=== PATIENT | female | born 1935 | race Caucasian/White ===

== ENCOUNTER → 2016-12-21 | Day surgery (SDC) | payer OTHER, MEDICARE ==
[~2016-12-21] VITALS: Ht 165.1 cm; Wt 81.6 kg
[~2016-12-21] MED LIST: ALLOPURINOL100 MG PO; ASPIR 8181 MG PO; CALCIUM 600600 M1 PO; CRESTOR20 MG PO; DIOVAN 160 MG160 MG PO; ERYTHROMYCIN500 M1 PO; JANUMET 1000 MG1 TAB PO; LEVOTHYROXIN0.075 MG PO; LOPRESSOR 25MG25 MG PO; MULTIVITAMIN1 TAB PO; NORVASC10 M1 PO; PLAVIX75 M1 PO; PREDNISONE5 MG PO
--- NOTE | 2016-12-21 12:13 | Operative Report ---
Operative/Inv Procedure Report Surgery Date: 12/21/16 Name of Procedure: Hysteroscopy, dilation and curettage Pre-Operative Diagnosis: Thickened endometrium, postmenopausal bleeding Post-Operative Diagnosis: Endometrial mass noted involving Posterior wall of uterus Estimated Blood Loss: scant Surgeon/Jtac: JAMES RODRIGUEZ DO Anesthesia: TIVA, 5ml of 1% lidocaine plain. IV Fluids: 250 mL Urine Output: 125 mL preoperative Drains: None Specimens: Endocervical curettage, endometrial curettage Complications: None Condition: Good Operative Indication: This patient is an 81-year-old postmenopausal female who presented to al in July for postmenopausal bleeding. She is with a thick endometrium by pelvic ultrasound. She was advised to undergo hysteroscopy, dilation and curettage however the patient refused at that time. She followed up with urology what she felt was hematuria. She returned to al in November persistent cramping and intermittent bleeding and was at that time strongly advised to undergo endometrial sampling. She was counseled the risks, benefits, alternatives to procedure including the risk of bleeding, infection, uterine perforation, nondiagnostic specimen or diagnosis of cancer. She stated verbal understanding of all the above and desires to proceed. Operative/Procedure Note Note: The patient was taken to the operating room where anesthesia was obtained without difficulty. She was placed in the dorsal lithotomy position and examined under anesthesia. Unremarkable she had a small uterus and no adnexal masses. She was then prepared and draped in usual sterile fashion. She had a narrow vaginal introitus. An open sided speculum was placed inside the patient' s vagina and the cervix was visualized. Paracervical block was performed with 5 mL 1% lidocaine plain. Anterior lip the cervix was then grasped with a single- tooth tenaculum and the cervix was then progressively dilated to 21 [place] with Wilfrid dilators. Uterine sound length of 7 cm was determined. Diagnostic hysteroscopy was then performed using normal saline as distention media. Should normal-appearing bilateral tubal ostia. Anterior wall of the uterus was atrophic except for one small area demonstrated early polyp formation. She had a mass of the posterior wall. No significant vascularity was noted. Hysteroscope was removed and endocervical curettage was obtained. Endometrial curettage was performed. Minimal tissue was obtained. Polyp forceps were then used to remove the tissue from the posterior wall. Necrotic tissue was easily removed. No significant bleeding was noted multiple passes were made with a curet as well as with the endometrial [place]. Moderate tissue was obtained. All tissue was sent for pathology. All insurance removed from the patient's uterus, cervix, vagina. Hemostasis of tenaculum sites was noted. All sponge, lap counts and needle counts were correct 2 the patient was taken to the recovery area in stable condition. Her granddaughter. Findings: Examination under anesthesia: Small uterus, no adnexal mass Intraoperative findings: Uterine sound length 7 cm. Early polyp formation anterior wall of uterus otherwise atrophic anterior wall. Normal-appearing bilateral tubal ostia. Mass Of posterior wall. Discharge Disposition: PACU
== END ==
LOC: STS 02:02
DX: C54.1 Malignant neoplasm of endometrium (principal); E03.9 Hypothyroidism, unspecified; M10.9 Gout, unspecified; I10 Essential (primary) hypertension; E11.9 Type 2 diabetes mellitus without complications; Z79.84 Long term (current) use of oral hypoglycemic drugs
CPT/HCPCS: J2250

== ENCOUNTER 2018-02-08 17:13 | Inpatient (IN) | payer OTHER, MEDICARE ==
[~2018-02-08] VITALS: Ht 165.1 cm; Wt 89.8 kg
[~2018-02-08 17:13] MED LIST changes: +ALLOPURINOL100 M1 PO; -ALLOPURINOL100 MG PO; -ASPIR 8181 MG PO; +ASPIRIN EC81 M1 PO; +CRESTOR20 M2 PO; -CRESTOR20 MG PO; -DIOVAN 160 MG160 MG PO; +DIOVAN160 MG PO; -JANUMET 1000 MG1 TAB PO; +JANUMET 50-1,01 EACH PO; -LEVOTHYROXIN0.075 MG PO; +LEVOTHYROXINE75 MCG PO; -LOPRESSOR 25MG25 MG PO; +METOPROLOL TART25 M1 PO
--- NOTE | 2018-02-08 18:14 | ED GENERAL ADULT ---
History of Present Illness General Chief Complaint: Abdominal Pain/Flank Pain Stated Complaint: UPPER ABD PAIN Source: patient Exam Limitations: no limitations Vital Signs & Intake/Output Vital Signs & Intake/Output Vital Signs Date Time Temp Pulse Resp B/P B/P Pulse O2 O2 Flow FiO2 Mean Ox Delivery Rate 02/08 2206 99.1 84 16 144/66 96 Room Air 02/08 2100 97.8 87 16 144/60 94 Room Air 02/08 1721 97.5 72 16 157/79 97 Room Air Allergies Coded Allergies: Penicillins (HIVES 02/08/18) codeine (N/V 02/08/18) Reconcile Medications Allopurinol 100 MG TABLET 1 TAB PO DAILY GOUT (Reported) Amlodipine Besylate (Norvasc) 10 MG TABLET 1 TAB PO DAILY HTN (Reported) Aspirin (Ecotrin*) 81 MG TABLET.DR 1 TAB PO DAILY HEART/BLOOD (Reported) Cholecalciferol (Vitamin D3) (Vitamin D) 2,000 UNIT CAPSULE 1 CAP PO DAILY SUPPLEMENT (Reported) Clopidogrel Bisulfate (Plavix) 75 MG TABLET 1 TAB PO DAILY CAD (Reported) Levothyroxine Sodium 75 MCG TABLET 1 TAB PO DAILY THYROID (Reported) Metoprolol Tartrate 25 MG TABLET 1 TAB PO BID HEART/BP (Reported) Mirabegron (Myrbetriq) 50 MG TAB.ER.24H 1 TAB PO DAILY BLADDER (Reported) Rosuvastatin Calcium (Crestor) 20 MG TABLET 1 TAB PO DAILY CHOLESTEROL ( Reported) Sitagliptin Phos/Metformin HCl (Janumet 50-1,000 MG Tablet) 50 MG-1,000 MG TABLET 1 TAB PO BID DM (Reported) Ubidecarenone (Co Q-10) 200 MG CAPSULE 1 CAP PO DAILY SUPPLEMENT (Reported) Valsartan (Diovan) 160 MG TABLET 1 TAB PO DAILY BP (Reported) Triage Note: PT COMPLAINS OF CRAMPING UPPER ABD PAIN SINCE NOON, VOMITTED 1X AT NOON AND THEN AGAIN ON THE WAY TO THE HOSPITAL. LBM THIS AM AND NORMAL, DENIES BLOOD, DENIES URINARY SYMPTOMS Triage Nurses Notes Reviewed? yes Onset: Abrupt Duration: hour(s): Timing: single episode today HPI: 82 year old female presents to the Emergency Department with abdominal pain which started abruptly at noon today. She has vomitted twice since then. She denies any chest pain or blood in her vomit. Past History Travel History Traveled to [place] past 21 day No Medical History Any Pertinent Medical History? 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 No Review of Systems Review of Systems Constitutional: Reports: see HPI. Denies: fever. EENTM: Reports: no symptoms. Denies: blurred vision, double vision, visual changes. Respiratory: Reports: no symptoms. Denies: hemoptysis, short of breath. Cardiovascular: Reports: no symptoms. Denies: chest pain. GI: Reports: see HPI. Denies: bloody stool. Genitourinary: Reports: no symptoms. Musculoskeletal: Reports: no symptoms. Skin: Reports: no symptoms. Neurological/Psychological: Reports: no symptoms. Hematologic/Endocrine: Reports: no symptoms. Immunologic/Allergic: Reports: no symptoms. All Other Systems: Reviewed and Negative Physical Exam Physical Exam General Appearance: alert, awake, anxious Head: atraumatic, normal appearance Eyes: Bilateral: normal appearance, PERRL, EOMI. Neck: full range of motion Respiratory: no respiratory distress Cardiovascular: regular rate/rhythm Gastrointestinal: soft, tenderness (EPIGASTRIC / RIGHT UPPER QUAD) Back: normal range of motion Extremities: normal range of motion Neurologic/Psych: awake, alert, oriented x 3 Skin: intact, normal color, warm/dry Core Measures ACS in differential dx? No CVA/TIA Diagnosis: No Sepsis Present: No Sepsis Focused Exam Completed? No Progress Differential Diagnoses I considered the following diagnoses in my evaluation of the patient: [ Diverticulitis, appendicitis, cholecystitis, bowel obstruction.] Plan of Care: Orders Procedure Date/time Status Nothing by Mouth 02/09 B Active ED Holding Orders 02/08 2222 Active Admit to inpatient 02/08 2222 Active Vital Signs 02/08 2222 Active Code Status 02/08 2222 Active Patient Data 02/08 220 Active Baez, Insertion/Removal/Asses 02/08 191 Complete URINALYSIS 02/08 1729 Complete TROPONIN LEVEL 02/08 1729 Complete LIPASE 02/08 1729 Complete COMPREHENSIVE METABOLIC PANEL 02/08 1729 Complete CBC WITHOUT DIFFERENTIAL 02/08 172 Complete EKG 02/08 1714 Active Laboratory Tests 02/08/18 1750: Anion Gap 14, Estimated GFR 36 L, BUN/Creatinine Ratio 15.0, Glucose 161 H, Calcium 9.6, Total Bilirubin 0.9, AST 102 H, ALT 41, Alkaline Phosphatase 120, Troponin I < 0.01, Total Protein 7.8, Albumin 4.6, Globulin 3.2, Albumin/ Globulin Ratio 1.4, Lipase 384 H, CBC w Diff NO MAN DIFF REQ, RBC 4.33, MCV 81.4, MCH 27.3, MCHC 33.5, RDW 16.4 H, MPV 8.0, Gran % 85.6 H, Lymphocytes % 9.6 L, Monocytes % 3.1, Eosinophils % 1.3, Basophils % 0.4, Absolute Granulocytes 11.0 H, Absolute Lymphocytes 1.2, Absolute Monocytes 0.4, Absolute Eosinophils 0.2, Absolute Basophils 0.1, Urine Color YEL, Urine Clarity CLEAR, Urine pH 5.5, Ur Specific [place] >= 1.030, Urine Protein 100 H, Urine Ketones NEG, Urine Nitrite POS H, Urine Bilirubin NEG, Urine Urobilinogen 1.0, Ur Leukocyte Esterase MOD H, Ur Microscopic SEDIMENT EXAMINED, Urine RBC 1-3, Urine WBC 25-50 H, Ur Epithelial Cells FEW, Urine Bacteria MANY H, Urine Hemoglobin SMALL H, Urine Glucose NEG, Urine Comment A Microbiology 02/08 1914 URINE ROUT: Urine Culture - CAN Cancelled: Cancelled via OE: Error Initial ED EKG: NSR, nonspecific ST T wave chg, 1st degree AV block Prior EKG: unchanged Departure Departure Disposition: STILL A PATIENT Condition: Stable Clinical Impression Primary Impression: Abdominal pain Secondary Impressions: Cholelithiasis Referrals: Kamar Flowers MD (PCP/Family) Departure Forms: Customer Survey General Discharge Information Admission Note Spoke With: Kamar Flowers MD Documentation of Exam: Documentation of any treatments & extenuating circumstances including Concerns Regarding Discharge (functional status, medication knowledge or non-compliance, living conditions, etc.) that warrant an admission rather than observation: [The patient needs admission for serial troponins, ultrasound in the a.m., general surgery consultation, IV fluids, reevaluation of abdominal pain. Diagnostic considerations include acute coronary syndrome, pancreatitis, cholecystitis] Critical Care Note Critical Care Note Critical Care Time: non-applicable
[2018-02-08 18:22] LABS: ABSOLUTE BASOPHIL COUNT 0.1 /CUMM (0.0-0.2); ABSOLUTE EOSINOPHIL COUNT 0.2 /CUMM (0.0-0.7); ABSOLUTE LYMPH COUNT 1.2 /CUMM (1.2-3.4); ABSOLUTE MONOCYTE COUNT 0.4 /CUMM (0.10-0.60); BASOPHIL % 0.4 % (0.0-2.0); EOSINOPHIL % 1.3 % (0-5); HEMATOCRIT 35.3 % (37-47); MEAN CORPUSCULAR HGB 27.3 PG (27.0-31.0); MEAN CORPUSCULAR HGB CONC 33.5 G/DL (33.0-37.0); MEAN CORPUSCULAR VOLUME 81.4 FL (81.0-99.0); PLATELET COUNT 340 /CUMM (130-400); RBC DISTRIBUTION WIDTH 16.4 % (11.5-14.5); RED BLOOD CELL CT 4.33 /CUMM (4.20-5.40); WHITE BLOOD CELL COUNT 12.8 /CUMM (4.8-10.8)
[2018-02-08 18:43] LABS: GRANULOCYTE % 85.6 % (42.2-75.2)
--- NOTE | 2018-02-08 20:25 | CT SCAN REPORT ---
EXAMINATION: CT ABDOMEN AND PELVIS WITH CONTRAST CLINICAL INFORMATION: Epigastric pain. Assess for pancreatitis or cholecystitis. COMPARISON: None. TECHNIQUE: Multidetector volumetric imaging was performed of the abdomen and pelvis following IV administration of 95 mL of Optiray 320 intravenous contrast. Sagittal and coronal reformatted images were obtained on the technologist's workstation. DLP: 579.08 mGy-cm FINDINGS: LUNG BASES: There are linear opacities at the bases bilaterally consistent with atelectasis. There are coronary artery calcifications. There are no pleural or pericardial effusions. LIVER, GALLBLADDER, AND BILIARY TREE: The liver is normal in size and contour. It has diffusely low attenuation, consistent with hepatic steatosis. There is slight prominence of the intrahepatic ducts. The common bile duct has a caliber of 1.2 cm. The gallbladder is well-distended. There are dependent calcifications inferiorly in the gallbladder lumen, consistent with radiodense gallstones. There is no evidence of gallbladder wall thickening or obvious pericholecystic inflammatory changes. PANCREAS: The pancreas has uniform density. There is no stranding in the peripancreatic soft tissues. SPLEEN: The spleen appears normal. ADRENAL GLANDS: The adrenal glands are not enlarged. KIDNEYS AND URETERS: The kidneys are normal in size, shape, and attenuation. There is a 1 cm exophytic cyst off the posterior aspect of the upper pole of the left kidney. There is no hydronephrosis or perinephric stranding. There is a nonobstructive 2 mm calcification at the midpole of the right kidney posteriorly. There is no hydroureter. There are no obstructive renal calculi. BLADDER: The urinary bladder is decompressed. GASTROINTESTINAL TRACT: There is a small hiatal hernia. The stomach is decompressed. The loops of small bowel appear normal. The appendix is not discretely visualized. Although there are small lymph nodes in the mesentery in the right lower abdomen, there is no significant stranding of the pericecal soft tissue to suggest appendicitis. There is moderate stool within the large bowel. There is diverticulosis involving the lower descending colon with extensive changes throughout the sigmoid colon. There is no definite active diverticulitis. ABDOMINAL WALL: There is a fat-containing umbilical hernia. LYMPH NODES: There is no pelvic or abdominal lymphadenopathy. VASCULAR: There are atheromatous calcifications of the aorta and its branches. The infrarenal abdominal aorta is slightly ectatic, but there is no discrete aneurysm. PELVIC VISCERA: The uterus is not visualized, and is likely surgically removed. No masses or free pelvic fluid are noted. OSSEOUS STRUCTURES: There is marked narrowing of intervertebral disc height at L2-L3 and L4-L5 with vacuum discs, sclerotic endplate changes and marginal osteophytes. There are multilevel facet arthropathic changes. There are no suspicious lytic or sclerotic foci. IMPRESSION: 1. There is extensive sigmoid diverticulosis without evidence of active diverticulitis. 2. The liver has diffusely low attenuation consistent with hepatic steatosis. The intrahepatic ducts and common bile duct are mildly prominent; etiology is uncertain. 3. There are calcific calculi dependently in the gallbladder. There is no evidence of acute cholecystitis. 4. The pancreas is unremarkable. 5. There is a nonobstructive right renal calculus.
[2018-02-08] MEDS ORDERED: VITAMIN D2000 UNIT PO (21:02)
[2018-02-08] MEDS ORDERED: MYRBETRIQ50 M1 PO (21:03)
[2018-02-08] MEDS ORDERED: CO Q-10200 MG PO (21:03)
--- NOTE | 2018-02-08 22:24 | History & Physical ---
Waqas Eid 02/08/18 2211: General Information and HPI MD Statement: I have seen and personally examined BRANDON MCDONALD and documented this H&P. The patient is a 82 year old F who presented with a patient stated chief complaint of ABDOMINAL PAIN. Source of Information: patient, family, old records Exam Limitations: no limitations History of Present Illness: 82-year-old female with past medical history significant for gout, hypothyroidism, uterine cancer status post hysterectomy, hypertension, hyperlipidemia, diabetes, CAD status post PCI and stents on aspirin/Plavix presented with acute onset sudden abdominal pain. Her pain started earlier today when she was eating lunch, and she was unable to eat any of her lunch except the chicken soup. She started feeling abdominal discomfort across her entire abdomen, which she described as a tightening. She felt clammy and diaphoretic and developed nausea. She went to the bathroom and vomited mostly clear liquid and broth, which did not relieve her discomfort. She denied chest pain, palpitations, chest tightness, arm pain or jaw pain. The pain did not radiate. Denies fevers, chills, diarrhea, dysuria. Does endorse headache, which she attributes to not having eaten since yesterday. Pain is 3/10, mild tenderness to deep palpation. She had a CT scan which showed gallstones, CBD diameter of 1.2 cm, unremarkable pancreas, diverticulosis, and nonobstructive right renal stone. Patient has a leukocytosis and minimal elevated lipase. She was admitted to telemetery for ACS evaluation, probable biliary colic, and surgical evaluation. Allergies/Medications Allergies: Coded Allergies: Penicillins (HIVES 02/08/18) codeine (N/V 02/08/18) Home Med list Allopurinol 100 MG TABLET 1 TAB PO DAILY GOUT (Reported) Amlodipine Besylate (Norvasc) 10 MG TABLET 1 TAB PO DAILY HTN (Reported) Aspirin (Ecotrin*) 81 MG TABLET.DR 1 TAB PO DAILY HEART/BLOOD (Reported) Cholecalciferol (Vitamin D3) (Vitamin D) 2,000 UNIT CAPSULE 1 CAP PO DAILY SUPPLEMENT (Reported) Clopidogrel Bisulfate (Plavix) 75 MG TABLET 1 TAB PO DAILY CAD (Reported) Levothyroxine Sodium 75 MCG TABLET 1 TAB PO DAILY THYROID (Reported) Metoprolol Tartrate 25 MG TABLET 1 TAB PO BID HEART/BP (Reported) Mirabegron (Myrbetriq) 50 MG TAB.ER.24H 1 TAB PO DAILY BLADDER (Reported) Rosuvastatin Calcium (Crestor) 20 MG TABLET 1 TAB PO DAILY CHOLESTEROL ( Reported) Sitagliptin Phos/Metformin HCl (Janumet 50-1,000 MG Tablet) 50 MG-1,000 MG TABLET 1 TAB PO BID DM (Reported) Ubidecarenone (Co Q-10) 200 MG CAPSULE 1 CAP PO DAILY SUPPLEMENT (Reported) Valsartan (Diovan) 160 MG TABLET 1 TAB PO DAILY BP (Reported) Compliance With Home Meds: GOOD Past History Travel History Traveled to [place] past 21 day No Medical History Neurological: NONE EENT: NONE Cardiovascular: hyperlipidemia Respiratory: NONE Gastrointestinal: NONE Hepatic: NONE Renal: NONE Musculoskeletal: NONE Psychiatric: NONE Endocrine: diabetes, GOUT Blood Disorders: NONE Cancer(s): NONE PHOTOGRAPH EDITOR/Reproductive: NONE Surgical History Surgical History: none Past Family/Social History Psychosocial History Where do you live? Home Services at Home: None Primary Language: Japanese Smoking Status: Never Smoked ETOH Use: denies use Illicit Drug Use: denies illicit drug use Functional Ability ADLs Independent: dressing, eating, toileting, bathing. Ambulation: independent IADLs Independent: shopping, housework, finances, food prep, telephone, transportation , medication admin. 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 Denies: chills, fever, malaise, weakness. EENTM: Reports: no symptoms. Cardiovascular: Reports: peripheral edema. Denies: chest pain, palpitations, syncope. Respiratory: Reports: cough. Denies: short of breath, sputum production, wheezing. GI: Reports: abdominal pain, nausea, vomiting. Denies: constipation, diarrhea, bloody stool. Genitourinary: Reports: frequency, urgency. Denies: dysuria. Musculoskeletal: Reports: gout. Skin: Reports: no symptoms. Neurological/Psychological: Reports: headache. Hematologic/Endocrine: Reports: no symptoms. Immunologic/Allergic: Reports: no symptoms. All Other Systems: Reviewed and Negative Exam & Diagnostic Data Last 24 Hrs of Vital Signs/I&O Vital Signs Date Time Temp Pulse Resp B/P B/P Pulse O2 O2 Flow FiO2 Mean Ox Delivery Rate 02/08 2328 98.3 85 22 130/56 94 Room Air 08/21 2322 Room Air 02/08 2206 99.1 84 16 144/66 96 Room Air 02/08 2100 97.8 87 16 144/60 94 Room Air 02/08 1721 97.5 72 16 157/79 97 Room Air Intake & Output 02/09 0800 02/09 0000 02/08 1600 Intake Total 0 Output Total 250 Balance -250 Intake, Oral 0 Output, Urine 250 Patient 177 lb Weight Weight Bed scale Measurement Method Physical Exam General Appearance Alert, Oriented X3, Cooperative, No Acute Distress Skin No Rashes, No Breakdown, No Significant Lesion Skin Temp/Moisture Exam: Warm/Dry HEENT Atraumatic, PERRLA, EOMI, Mucous Membr. moist/pink Neck Supple, No JVD, No thryomegaly Cardiovascular Regular Rate, Normal S1, Normal S2, No Murmurs Lungs Clear to Auscultation, Normal Air Movement Abdomen Normal Bowel Sounds, Soft, No Masses, tenderness in RUQ and epigastric area on deep palpation only, no guarding, rebound tenderness, or peritoneal signs Neurological Normal Speech, Strength at 5/5 X4 Ext, Normal Tone, Sensation Intact Extremities No Clubbing, No Cyanosis, Normal Pulses, mild bilateral lower extremity edema Last 24 Hrs of Labs/Tayo: Laboratory Tests 02/09/18 0050: Troponin I < 0.01 02/08/18 1750: Anion Gap 14, Estimated GFR 36 L, BUN/Creatinine Ratio 15.0, Glucose 161 H, Calcium 9.6, Total Bilirubin 0.9, AST 102 H, ALT 41, Alkaline Phosphatase 120, Troponin I < 0.01, Total Protein 7.8, Albumin 4.6, Globulin 3.2, Albumin/ Globulin Ratio 1.4, Lipase 384 H, CBC w Diff NO MAN DIFF REQ, RBC 4.33, MCV 81.4, MCH 27.3, MCHC 33.5, RDW 16.4 H, MPV 8.0, Gran % 85.6 H, Lymphocytes % 9.6 L, Monocytes % 3.1, Eosinophils % 1.3, Basophils % 0.4, Absolute Granulocytes 11.0 H, Absolute Lymphocytes 1.2, Absolute Monocytes 0.4, Absolute Eosinophils 0.2, Absolute Basophils 0.1, Urine Color YEL, Urine Clarity CLEAR, Urine pH 5.5, Ur Specific Knox >= 1.030, Urine Protein 100 H, Urine Ketones NEG, Urine Nitrite POS H, Urine Bilirubin NEG, Urine Urobilinogen 1.0, Ur Leukocyte Esterase MOD H, Ur Microscopic SEDIMENT EXAMINED, Urine RBC 1-3, Urine WBC 25-50 H, Ur Epithelial Cells FEW, Urine Bacteria MANY H, Urine Hemoglobin SMALL H, Urine Glucose NEG, Urine Comment A Microbiology 02/08 2326 URINE ROUT: Urine Culture - COLB 02/08 1914 URINE ROUT: Urine Culture - CAN Cancelled: Cancelled via OE: Error Diagnostic Data EKG Results NSR, nospecific ST T wave changes, 1st degree AV block Other Results CT Ab Pelvis - 1. There is extensive sigmoid diverticulosis without evidence of active diverticulitis. 2. The liver has diffusely low attenuation consistent with hepatic steatosis. The intrahepatic ducts and common bile duct are mildly prominent; etiology is uncertain. 3. There are calcific calculi dependently in the gallbladder. There is no evidence of acute cholecystitis. 4. The pancreas is unremarkable. 5. There is a nonobstructive right renal calculus. Assessment/Plan Assessment: 82 year old female with PMH significant for gout, hypothyroidism, uterine cancer s/p hysterectomy, HTN, HLD, DM, CAD s/p PCI and stents on ASA/Plavix presented with acute onset sudden abdominal pain. Problem list/plan: Abdominal pain CAD Hypertension Diabetes Hypothyroidism Gout -Continue allopurinol at home dose Overactive bladder -Continue mirabegron DVT prophylaxis: Subcu heparin and ALPS NPO pending re-eval by surgery Patient is full code As Ranked By This Provider Problem List: 1. Abdominal pain 2. Cholelithiasis Core Measures/Misc (03/07) Acute Coronary Syndrome ACS Diagnosis: No Congestive Heart Failure Congestive Heart Failure Diagnosis No Cerebrovascular Accident CVA/TIA Diagnosis: No VTE (View Protocol) VTE Risk Factors Age>40 No Mechanical VTE Prophylaxis d/t N/A MechProphylax Ordered No VTE Pharm Prophylaxis d/t NA PharmProphylax ordered Sepsis (View protocol) Sepsis Present: No If YES complete Sepsis Event Note If YES complete Sepsis Event Note Jamal Trejo MD 02/09/18 0009: General Information and HPI MD Statement: I have seen and personally examined HARRYBRANDON and documented this H&P. The patient is a 82 year old F who presented with a patient stated chief complaint of abdominal pain. Source of Information: patient, old records Exam Limitations: no limitations History of Present Illness: 82 year old female with PMH significant for gout, hypothyroidism, uterine cancer s/p hysterectomy, HTN, HLD, DM, CAD s/p PCI and stents on ASA/Plavix presented with acute onset sudden abdominal pain. Her pain start with eating lunch earlier today, chicken soup. She couldn't finish her lunch. She immediately started feeling abdominal discomfort across her entire upper abdomen. She felt clammy and diaphoretic and developed nausea in association with the pain. She went to bathroom and vomiting mostly clear liquid and broth which gave her minimal relief. She wrapped up the rest of her lunch and drove home. Her pain continued to worsen up to a 10/10 nonradiating described as pressure and tightness. She tried antacids at home and continued to have no relieve before coming to the ED. She denied any chest pain, palpitations, chest tightness, arm pain or jaw pain. Her abdominal pain did not radiate anywhere. She denied any fevers, chill, diarrhea, or dysuria. She does have chronic urinary urgency and occasional incontinence for which she takes Mirabegron, and started after her hysterectomy for uterine cancer. She also reports a headache from not eating since yesterday and a mild night time non productive cough. She denied prior episodes of postprandial pain. Her pain is currently a 3/10 with mild tenderness on deep palpation of the right upper and epigastric areas. She had a CT scan of her abdomen and pelvis which showed gallstones, common bile duct of 1.2 cm, unremarkable pancreas, diverticulosis, and nonobstructive right renal stone. She has a leukocytosis and minimal elevated lipase. She was admitted to telemetry for ACS evaluation, probable biliary colic, and surgical evaluation. Allergies/Medications Compliance With Home Meds: GOOD Past History Travel History Traveled to [place] past 21 day No Medical History Neurological: NONE EENT: NONE Cardiovascular: CAD, hypertension, hyperlipidemia Respiratory: NONE Gastrointestinal: NONE Hepatic: NONE Renal: urinary incontinence Musculoskeletal: gout Psychiatric: NONE Endocrine: diabetes, hypothyroidism, GOUT Blood Disorders: NONE Cancer(s): endometrial cancer PHOTOGRAPH EDITOR/Reproductive: NONE Surgical History Surgical History: hysterectomy Past Family/Social History Family History Relations & Conditions if any Relation not specified for: *No pertinent family history Psychosocial History Where do you live? Home Services at Home: None Primary Language: Japanese Smoking Status: Never Smoked ETOH Use: denies use Illicit Drug Use: denies illicit drug use Functional Ability ADLs Independent: dressing, eating, toileting, bathing. Ambulation: independent IADLs Independent: shopping, housework, finances, food prep, telephone, transportation , medication admin. 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 Denies: chills, fever, malaise, weakness. EENTM: Reports: no symptoms. Cardiovascular: Reports: peripheral edema. Denies: chest pain, palpitations, syncope. Respiratory: Reports: cough (nighttime). Denies: short of breath, sputum production, wheezing. GI: Reports: abdominal pain, nausea, vomiting. Denies: constipation, diarrhea, bloody stool. Genitourinary: Reports: frequency, urgency. Denies: dysuria. Musculoskeletal: Reports: gout. Skin: Reports: no symptoms. Neurological/Psychological: Reports: headache. Hematologic/Endocrine: Reports: no symptoms. Immunologic/Allergic: Reports: no symptoms. All Other Systems: Reviewed and Negative Exam & Diagnostic Data Last 24 Hrs of Vital Signs/I&O Vital Signs Date Time Temp Pulse Resp B/P B/P Pulse O2 O2 Flow FiO2 Mean Ox Delivery Rate 02/09 2328 98.3 85 22 130/56 94 Room Air 02/08 2322 Room Air 02/08 2206 99.1 84 16 144/66 96 Room Air 02/08 2100 97.8 87 16 144/60 94 Room Air 02/08 1721 97.5 72 16 157/79 97 Room Air Intake & Output 02/09 0800 02/09 0000 02/08 1600 Intake Total 0 Output Total 250 Balance -250 Intake, Oral 0 Output, Urine 250 Patient 80.371 kg Weight Weight Bed scale Measurement Method Physical Exam General Appearance Alert, Oriented X3, Cooperative, No Acute Distress Cardiovascular Regular Rate, Normal S1, Normal S2, No Murmurs Lungs Clear to Auscultation, Normal Air Movement Abdomen Normal Bowel Sounds, Soft, No Masses, tenderness in RUQ and epigastric area on deep palpation only, no guarding, rebound tenderness, or peritoneal signs Extremities No Clubbing, No Cyanosis, Normal Pulses, mild b/l LE edema Last 24 Hrs of Labs/Tayo: Laboratory Tests 02/08/18 1750: Anion Gap 14, Estimated GFR 36 L, BUN/Creatinine Ratio 15.0, Glucose 161 H, Calcium 9.6, Total Bilirubin 0.9, AST 102 H, ALT 41, Alkaline Phosphatase 120, Troponin I < 0.01, Total Protein 7.8, Albumin 4.6, Globulin 3.2, Albumin/ Globulin Ratio 1.4, Lipase 384 H, CBC w Diff NO MAN DIFF REQ, RBC 4.33, MCV 81.4, MCH 27.3, MCHC 33.5, RDW 16.4 H, MPV 8.0, Gran % 85.6 H, Lymphocytes % 9.6 L, Monocytes % 3.1, Eosinophils % 1.3, Basophils % 0.4, Absolute Granulocytes 11.0 H, Absolute Lymphocytes 1.2, Absolute Monocytes 0.4, Absolute Eosinophils 0.2, Absolute Basophils 0.1, Urine Color YEL, Urine Clarity CLEAR, Urine pH 5.5, Ur Specific Knox >= 1.030, Urine Protein 100 H, Urine Ketones NEG, Urine Nitrite POS H, Urine Bilirubin NEG, Urine Urobilinogen 1.0, Ur Leukocyte Esterase MOD H, Ur Microscopic SEDIMENT EXAMINED, Urine RBC 1-3, Urine WBC 25-50 H, Ur Epithelial Cells FEW, Urine Bacteria MANY H, Urine Hemoglobin SMALL H, Urine Glucose NEG, Urine Comment A Microbiology 02/08 2326 URINE ROUT: Urine Culture - COLB 02/08 1914 URINE ROUT: Urine Culture - CAN Cancelled: Cancelled via OE: Error Diagnostic Data EKG Results 1st degree block, SR, LAD Other Results CT abdomen/pelvis without contrast LUNG BASES: There are linear opacities at the bases bilaterally consistent with atelectasis. There are coronary artery calcifications. There are no pleural or pericardial effusions. LIVER, GALLBLADDER, AND BILIARY TREE: The liver is normal in size and contour. It has diffusely low attenuation, consistent with hepatic steatosis. There is slight prominence of the intrahepatic ducts. The common bile duct has a caliber of 1.2 cm. The gallbladder is well-distended. There are dependent calcifications inferiorly in the gallbladder lumen, consistent with radiodense gallstones. There is no evidence of gallbladder wall thickening or obvious pericholecystic inflammatory changes. PANCREAS: The pancreas has uniform density. There is no stranding in the peripancreatic soft tissues. SPLEEN: The spleen appears normal. ADRENAL GLANDS: The adrenal glands are not enlarged. KIDNEYS AND URETERS: The kidneys are normal in size, shape, and attenuation. There is a 1 cm exophytic cyst off the posterior aspect of the upper pole of the left kidney. There is no hydronephrosis or perinephric stranding. There is a nonobstructive 2 mm calcification at the midpole of the right kidney posteriorly. There is no hydroureter. There are no obstructive renal calculi. BLADDER: The urinary bladder is decompressed. GASTROINTESTINAL TRACT: There is a small hiatal hernia. The stomach is decompressed. The loops of small bowel appear normal. The appendix is not discretely visualized. Although there are small lymph nodes in the mesentery in the right lower abdomen, there is no significant stranding of the pericecal soft tissue to suggest appendicitis. There is moderate stool within the large bowel. There is diverticulosis involving the lower descending colon with extensive changes throughout the sigmoid colon. There is no definite active diverticulitis. ABDOMINAL WALL: There is a fat-containing umbilical hernia. LYMPH NODES: There is no pelvic or abdominal lymphadenopathy. VASCULAR: There are atheromatous calcifications of the aorta and its branches. The infrarenal abdominal aorta is slightly ectatic, but there is no discrete aneurysm. PELVIC VISCERA: The uterus is not visualized, and is likely surgically removed. No masses or free pelvic fluid are noted. OSSEOUS STRUCTURES: There is marked narrowing of intervertebral disc height at L2-L3 and L4-L5 with vacuum discs, sclerotic endplate changes and marginal osteophytes. There are multilevel facet arthropathic changes. There are no suspicious lytic or sclerotic foci. IMPRESSION: 1. There is extensive sigmoid diverticulosis without evidence of active diverticulitis. 2. The liver has diffusely low attenuation consistent with hepatic steatosis. The intrahepatic ducts and common bile duct are mildly prominent; etiology is uncertain. 3. There are calcific calculi dependently in the gallbladder. There is no evidence of acute cholecystitis. 4. The pancreas is unremarkable. 5. There is a nonobstructive right renal calculus. Assessment/Plan Assessment: 82 year old female with PMH significant for gout, hypothyroidism, uterine cancer s/p hysterectomy, HTN, HLD, DM, CAD s/p PCI and stents on ASA/Plavix presented with acute onset sudden abdominal pain. Postprandial abdominal pain: Suspiscious for biliary colic with gall stones on CT and 1.2cm CBD NPO IVFs Surgery evaluation Right upper quadrant ultrasound in the AM Analgesics prn Repeat LFTs Serial abdominal exams CAD: Continue metoprolol and statin Serial EKGs and troponins Hold aspirin and plavix until re-evaluation by surgery in the morning HTN: Continue ARB, metoprolol, and norvasc DM: Hold Janumet Regular insulin sliding scale while NPO Hypothyroidism: Continue synthroid 75mcg Gout: Continue allopurinol 100mg po daily ac Overactive bladder: Continue mirabegron NPO DVT ppx-heparin sc 5000unit q8h Full code As Ranked By This Provider Problem List: 1. Abdominal pain 2. Cholelithiasis Core Measures/Misc (03/07) Acute Coronary Syndrome ACS Diagnosis: No Congestive Heart Failure Congestive Heart Failure Diagnosis No Cerebrovascular Accident CVA/TIA Diagnosis: No VTE (View Protocol) VTE Risk Factors Age>40 No Mechanical VTE Prophylaxis d/t N/A MechProphylax Ordered No VTE Pharm Prophylaxis d/t NA PharmProphylax ordered Sepsis (View protocol) Sepsis Present: No If YES complete Sepsis Event Note If YES complete Sepsis Event Note
--- NOTE | 2018-02-08 22:41 | Cons- General Surgery ---
Jamal Myers 02/08/18 2235: General Information and HPI Consulting Request Date of Consult: 02/08/18 Requested By: Kamar Flowers MD Reason for Consult: Abdominal pain Source of Information: patient Exam Limitations: no limitations History of Present Illness: This is a very pleasant 82-year-old female who presents with acute onset sudden abdominal pain which is described as a tightness and pressure sensation in the mid to upper epigastric area. It occurred earlier today, it lasted for several hours and was associated with small amount of vomiting due to the pain. She did not feel short of breath. There is no radiation of the pain, she had no jaw pain or arm pain, she had no lower abdominal pain, no back pain. Pain started prior to eating, she has no symptoms such as this in the past, no recent abdominal surgery except for a hysterectomy last year secondary to uterine cancer. She denies any fever or flulike illness. She denies any intolerance to food or postprandial pain over the last several weeks or months. She is feeling significantly better at this time of my evaluation. She tried Tums without relief. In the emergency department she received a CAT scan of her abdomen and pelvis which showed gallstones and a common bile duct of 1.2 cm and surgery was consulted for further evaluation. Allergies/Medications Allergies: Coded Allergies: Penicillins (HIVES 02/08/18) codeine (N/V 02/08/18) Home Med List: Allopurinol 100 MG TABLET 1 TAB PO DAILY GOUT (Reported) Amlodipine Besylate (Norvasc) 10 MG TABLET 1 TAB PO DAILY HTN (Reported) Aspirin (Ecotrin*) 81 MG TABLET.DR 1 TAB PO DAILY HEART/BLOOD (Reported) Cholecalciferol (Vitamin D3) (Vitamin D) 2,000 UNIT CAPSULE 1 CAP PO DAILY SUPPLEMENT (Reported) Clopidogrel Bisulfate (Plavix) 75 MG TABLET 1 TAB PO DAILY CAD (Reported) Levothyroxine Sodium 75 MCG TABLET 1 TAB PO DAILY THYROID (Reported) Metoprolol Tartrate 25 MG TABLET 1 TAB PO BID HEART/BP (Reported) Mirabegron (Myrbetriq) 50 MG TAB.ER.24H 1 TAB PO DAILY BLADDER (Reported) Rosuvastatin Calcium (Crestor) 20 MG TABLET 1 TAB PO DAILY CHOLESTEROL ( Reported) Sitagliptin Phos/Metformin HCl (Janumet 50-1,000 MG Tablet) 50 MG-1,000 MG TABLET 1 TAB PO BID DM (Reported) Ubidecarenone (Co Q-10) 200 MG CAPSULE 1 CAP PO DAILY SUPPLEMENT (Reported) Valsartan (Diovan) 160 MG TABLET 1 TAB PO DAILY BP (Reported) Past History Medical History Neurological: NONE EENT: NONE Cardiovascular: hyperlipidemia Respiratory: NONE Gastrointestinal: NONE Hepatic: NONE Renal: NONE Musculoskeletal: NONE Psychiatric: NONE Endocrine: diabetes, GOUT Blood Disorders: NONE Cancer(s): uterine cancer 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 Review of Systems Review of Systems: Review of systems: See HPI, all other systems negative. Constitutional: No chills fever or weight loss HEENT: No visual changes no sore throat no congestion Cardiovascular: No chest pain ,palpitation , orthopnea or ankle swelling Skin: No jaundice no rashes Respiratory: No dyspnea cough sputum or hemoptysis GI: See HPI : No dysuria no hematuria Musclulo skeletal: No back pain no neck pain, Neurologic: No numbness no confusion Psych: No stress anxiety or depression,. Heme/endocrine: No bruising no bleeding no polyuria or polydipsia Immunology: No splenectomy or history of AIDS Exam & Diagnostic Data Vital Signs and I&O Vital Signs Date Time Temp Pulse Resp B/P B/P Pulse O2 O2 Flow FiO2 Mean Ox Delivery Rate 02/08 2206 99.1 84 16 144/66 96 Room Air 02/08 2100 97.8 87 16 144/60 94 Room Air 02/08 1721 97.5 72 16 157/79 97 Room Air Physical Exam: Well-developed well-nourished no apparent distress. HEENT: Atraumatic, extraocular motion intact Neck: Supple, no lymphadenopathy . heart: Regular rate and rhythm no murmur Respiratory: No respiratory distress Clear to auscultation bilateral. Abdomen: Mildly obese, mild tenderness in the epigastric region. Negative Khanna sign. No lower abdominal tenderness. Normal bowel sounds Extremities: No edema, no calf pain Neuro: Alert and oriented x3 Psych: Mood affect normal, normal memory normal judgment. Skin: Warm and dry, no rash on exposed skin Last 24 Hours of Labs: Laboratory Tests 02/08 1750 Chemistry Sodium (137 - 145 mmol/L) 140 Potassium (3.5 - 5.1 mmol/L) 4.1 Chloride (98 - 107 mmol/L) 102 Carbon Dioxide (22 - 30 mmol/L) 24 Anion Gap (5 - 16) 14 BUN (7 - 17 mg/dL) 21 H Creatinine (0.5 - 1.0 mg/dL) 1.4 H Estimated GFR (>60 ml/min) 36 L BUN/Creatinine Ratio (7 - 25 %) 15.0 Glucose (65 - 99 mg/dL) 161 H Calcium (8.4 - 10.2 mg/dL) 9.6 Total Bilirubin (0.2 - 1.3 mg/dL) 0.9 AST (14 - 36 U/L) 102 H ALT (9 - 52 U/L) 41 Alkaline Phosphatase (<127 U/L) 120 Troponin I (< 0.11 ng/ml) < 0.01 Total Protein (6.3 - 8.2 g/dL) 7.8 Albumin (3.5 - 5.0 g/dL) 4.6 Globulin (1.9 - 4.2 gm/dL) 3.2 Albumin/Globulin Ratio (1.1 - 2.2 %) 1.4 Lipase (23 - 300 U/L) 384 H Hematology CBC w Diff NO MAN DIFF REQ WBC (4.8 - 10.8 /CUMM) 12.8 H RBC (4.20 - 5.40 /CUMM) 4.33 Hgb (12.0 - 16.0 G/DL) 11.8 L Hct (37 - 47 %) 35.3 L MCV (81.0 - 99.0 FL) 81.4 MCH (27.0 - 31.0 PG) 27.3 MCHC (33.0 - 37.0 G/DL) 33.5 RDW (11.5 - 14.5 %) 16.4 H Plt Count (130 - 400 /CUMM) 340 MPV (7.4 - 10.4 FL) 8.0 Gran % (42.2 - 75.2 %) 85.6 H Lymphocytes % (20.5 - 51.1 %) 9.6 L Monocytes % (1.7 - 9.3 %) 3.1 Eosinophils % (0 - 5 %) 1.3 Basophils % (0.0 - 2.0 %) 0.4 Absolute Granulocytes (1.4 - 6.5 /CUMM) 11.0 H Absolute Lymphocytes (1.2 - 3.4 /CUMM) 1.2 Absolute Monocytes (0.10 - 0.60 /CUMM) 0.4 Absolute Eosinophils (0.0 - 0.7 /CUMM) 0.2 Absolute Basophils (0.0 - 0.2 /CUMM) 0.1 Urines Urine Color (YEL,AMB,STR) YEL Urine Clarity (CLEAR) CLEAR Urine pH (5.0 - 8.0) 5.5 Ur Specific [place] (1.001 - 1.035) >= 1.030 Urine Protein (NEG,<30 MG/DL) 100 H Urine Ketones (NEG) NEG Urine Nitrite (NEG) POS H Urine Bilirubin (NEG) NEG Urine Urobilinogen (0.1 - 1.0 EU/dl) 1.0 Ur Leukocyte Esterase (NEG) MOD H Ur Microscopic SEDIMENT EXAMINED Urine RBC (0 - 5 /HPF) 1-3 Urine WBC (0 - 2 /HPF) 25-50 H Ur Epithelial Cells (NONE,FEW) FEW Urine Bacteria (NEG/NONE) MANY H Urine Hemoglobin (NEG) SMALL H Urine Glucose (N MG/DL) NEG Urine Comment A Imaging Results: PATIENT: BRANDON MCDONALD PRESENT AGE: 82 PATIENT ACCOUNT NO: [id number] : 33 LOCATION: [facility] ORDERING PHYSICIAN: Tristen GIRON SERVICE DATE: 02/08/18 EXAM TYPE: CAT - CT ABD & PELVIS W IV CONTRAST EXAMINATION: CT ABDOMEN AND PELVIS WITH CONTRAST CLINICAL INFORMATION: Epigastric pain. Assess for pancreatitis or cholecystitis. COMPARISON: None. TECHNIQUE: Multidetector volumetric imaging was performed of the abdomen and pelvis following IV administration of 95 mL of Optiray 320 intravenous contrast. Sagittal and coronal reformatted images were obtained on the technologist's workstation. DLP: 579.08 mGy-cm FINDINGS: LUNG BASES: There are linear opacities at the bases bilaterally consistent with atelectasis. There are coronary artery calcifications. There are no pleural or pericardial effusions. LIVER, GALLBLADDER, AND BILIARY TREE: The liver is normal in size and contour. It has diffusely low attenuation, consistent with hepatic steatosis. There is slight prominence of the intrahepatic ducts. The common bile duct has a caliber of 1.2 cm. The gallbladder is well-distended. There are dependent calcifications inferiorly in the gallbladder lumen, consistent with radiodense gallstones. There is no evidence of gallbladder wall thickening or obvious pericholecystic inflammatory changes. PANCREAS: The pancreas has uniform density. There is no stranding in the peripancreatic soft tissues. SPLEEN: The spleen appears normal. ADRENAL GLANDS: The adrenal glands are not enlarged. KIDNEYS AND URETERS: The kidneys are normal in size, shape, and attenuation. There is a 1 cm exophytic cyst off the posterior aspect of the upper pole of the left kidney. There is no hydronephrosis or perinephric stranding. There is a nonobstructive 2 mm calcification at the midpole of the right kidney posteriorly. There is no hydroureter. There are no obstructive renal calculi. BLADDER: The urinary bladder is decompressed. GASTROINTESTINAL TRACT: There is a small hiatal hernia. The stomach is decompressed. The loops of small bowel appear normal. The appendix is not discretely visualized. Although there are small lymph nodes in the mesentery in the right lower abdomen, there is no significant stranding of the pericecal soft tissue to suggest appendicitis. There is moderate stool within the large bowel. There is diverticulosis involving the lower descending colon with extensive changes throughout the sigmoid colon. There is no definite active diverticulitis. ABDOMINAL WALL: There is a fat-containing umbilical hernia. LYMPH NODES: There is no pelvic or abdominal lymphadenopathy. VASCULAR: There are atheromatous calcifications of the aorta and its branches. The infrarenal abdominal aorta is slightly ectatic, but there is no discrete aneurysm. PELVIC VISCERA: The uterus is not visualized, and is likely surgically removed. No masses or free pelvic fluid are noted. OSSEOUS STRUCTURES: There is marked narrowing of intervertebral disc height at L2-L3 and L4-L5 with vacuum discs, sclerotic endplate changes and marginal osteophytes. There are multilevel facet arthropathic changes. There are no suspicious lytic or sclerotic foci. IMPRESSION: 1. There is extensive sigmoid diverticulosis without evidence of active diverticulitis. 2. The liver has diffusely low attenuation consistent with hepatic steatosis. The intrahepatic ducts and common bile duct are mildly prominent; etiology is uncertain. 3. There are calcific calculi dependently in the gallbladder. There is no evidence of acute cholecystitis. 4. The pancreas is unremarkable. 5. There is a nonobstructive right renal calculus. DICTATED BY: Efrain Poole MD DATE/TIME DICTATED:02/08/181949 DATA ANALYST ETL DEVELOPER:NAREN DATE/TIME TRANSCRIBED:02/08/181949 Assessment/Plan Assessment/Plan 82-year-old female with epigastric abdominal pain noted to have gallstones and a common bile duct of 1.[address] scan Patient is being admitted to the medical service for further evaluation and treatment. From a surgical standpoint, potentially she passed a stone but she does not have significant symptoms of acute cholecystitis at this time. Would recommend an ultrasound tomorrow morning, repeat LFTs and white blood cell count in the morning, keep n.p.o. for now until after results of ultrasound, IV fluids and pain medication as needed. We will continue to follow with you. Discussed with patient who understands and agrees with plan. Discussed with Dr. Vasquez Consult Acknowledgment - Thank you for your consult request. Mahamed Vasquez DO 02/09/18 1122: Assessment/Plan Consult Acknowledgment - Thank you for your consult request. Attending MD Review Statement Attending Statement Attending MD Statement: examined this patient, discuss w/resident/PA/INTAKE NURSE, agreed w/resident/PA/INTAKE NURSE, discussed with family, reviewed EMR data (avail), reviewed images Attending Assessment/Plan: Patient seen and examined, agree with above. Acute onset chest/abd pain yesterday afternoon, currently asymptomatic. AVSS. Abd-soft NT/ND. Labs WBC 16 today (up from 12), LFTs have increase as well. CT scan cholelithiasis with prominent CBD (~1.2 cm). Keith cholelithiasis, no cholecystitis, CBD ~0.95 cm. Patient has been on Plavix and took dose yesterday. Given her resolution of symptoms (no further/N/V, and she is hungry), there is no indication for emergent/urgent surgical intervention. She does have a dilated CBD with increase in LFTs, should get a GI evaluation (may need an MRCP). Unclear the reason for WBC increase further. Her plavix should be held for 5 days prior to surgical intervention. If improves and no change in clinical status may benefit from elective Lap Lena so that the Plavix can be held for 5 days prior. If no intervention planned by GI ok to start diet. Will follow.
[2018-02-08 23:28] VITALS: BP 130/56
[2018-02-09 06:42] VITALS: BP 130/58
--- NOTE | 2018-02-09 07:48 | PN- General Surgery ---
Subjective Subjective: Reports abdominal pain nearly resolved. "Feels like muscle strain". NPO, awaiting abdominal ultrasound. Objective Vital Signs and I&Os Vital Signs Date Time Temp Pulse Resp B/P B/P Pulse O2 O2 Flow FiO2 Mean Ox Delivery Rate 02/09 0642 98.5 87 20 130/58 95 Room Air 02/08 2328 98.3 85 22 130/56 94 Room Air 02/08 2322 Room Air 02/08 2206 99.1 84 16 144/66 96 Room Air 02/08 2100 97.8 87 16 144/60 94 Room Air 02/08 1721 97.5 72 16 157/79 97 Room Air Intake & Output 02/09 0802/09 0000 02/08 1600 02/08 0802/08 0000 02/07 1600 Intake Total 450 0 Output Total 100 250 Balance 350 -250 Intake, IV 450 Intake, Oral 0 Output, Urine 100 250 Patient 177 lb Weight Weight Bed scale Measurement Method Physical Exam: General - alert & oriented x 3. comfortable. no acute distress. Abdomen - soft. nontender. no right upper quadrant or epigastric tenderness appreciated. Current Medications: Current Medications Sig/Evan Start time Last Medication Dose Route Stop Time Status Admin Acetaminophen 650 MG Q6P PRN 02/08 2330 AC 02/09 PO 0521 Acetaminophen 0 .STK-MED ONE 02/08 1929 DC IV Acetaminophen 1,000 MG ONCE ONE 02/08 1915 DC 02/08 IV 02/08 Allopurinol 100 MG DAILY 02/09 900 AC PO Amlodipine Besylate 10 MG DAILY 02/09 900 AC PO Dextrose/Sodium 1,000 ML Q20H 02/09 0015 AC 02/09 Chloride IV 0036 Heparin Sodium 5,000 UNIT Q8 02/09 06 AC (Porcine) SC Insulin Human Regular 0 Q6 02/09 0001 AC 02/09 SC 0520 Levothyroxine Sodium 0.075 MG DAILY 02/09 900 AC PO Losartan Potassium 50 MG DAILY 02/09 900 AC PO Metoprolol Tartrate 25 MG BID 02/09 900 AC PO Mirabegron 50 MG DAILY 02/09 900 AC PO Non-Formulary 0 SEE ADMIN CRITERIA 02/09 15 DC Medication ANY Non-Formulary 0 SEE ADMIN CRITERIA 02/09 15 DC Medication ANY Ondansetron HCl 4 MG Q6P PRN 02/08 2330 AC IV Rosuvastatin Calcium 20 MG DAILY 02/09 0900 AC PO Results Last 48 Hours of Labs: Laboratory Tests 02/09 02/09 02/08 0653 0050 1750 Chemistry Sodium (137 - 145 mmol/L) Pending 140 Potassium (3.5 - 5.1 mmol/L) Pending 4.1 Chloride (98 - 107 mmol/L) Pending 102 Carbon Dioxide (22 - 30 mmol/L) Pending 24 Anion Gap (5 - 16) Pending 14 BUN (7 - 17 mg/dL) Pending 21 H Creatinine (0.5 - 1.0 mg/dL) Pending 1.4 H Estimated GFR (>60 ml/min) 36 L BUN/Creatinine Ratio (7 - 25 %) Pending 15.0 Glucose (65 - 99 mg/dL) 161 H Calcium (8.4 - 10.2 mg/dL) 9.6 Magnesium Pending Total Bilirubin (0.2 - 1.3 mg/dL) Pending 0.9 Direct Bilirubin Pending AST (14 - 36 U/L) Pending 102 H ALT (9 - 52 U/L) Pending 41 Alkaline Phosphatase (<127 U/L) Pending 120 Troponin I (< 0.11 ng/ml) < 0.01 < 0.01 Total Protein (6.3 - 8.2 g/dL) Pending 7.8 Albumin (3.5 - 5.0 g/dL) Pending 4.6 Globulin (1.9 - 4.2 gm/dL) 3.2 Albumin/Globulin Ratio (1.1 - 2.2 %) 1.4 Lipase (23 - 300 U/L) 384 H Hematology CBC w Diff Pending NO MAN DIFF REQ WBC (4.8 - 10.8 /CUMM) Pending 12.8 H RBC (4.20 - 5.40 /CUMM) Pending 4.33 Hgb (12.0 - 16.0 G/DL) Pending 11.8 L Hct (37 - 47 %) Pending 35.3 L MCV (81.0 - 99.0 FL) Pending 81.4 MCH (27.0 - 31.0 PG) Pending 27.3 MCHC (33.0 - 37.0 G/DL) Pending 33.5 RDW (11.5 - 14.5 %) Pending 16.4 H Plt Count (130 - 400 /CUMM) Pending 340 MPV (7.4 - 10.4 FL) Pending 8.0 Gran % (42.2 - 75.2 %) 85.6 H Lymphocytes % (20.5 - 51.1 %) 9.6 L Monocytes % (1.7 - 9.3 %) 3.1 Eosinophils % (0 - 5 %) 1.3 Basophils % (0.0 - 2.0 %) 0.4 Absolute Granulocytes (1.4 - 6.5 /CUMM) 11.0 H Absolute Lymphocytes (1.2 - 3.4 /CUMM) 1.2 Absolute Monocytes (0.10 - 0.60 /CUMM) 0.4 Absolute Eosinophils (0.0 - 0.7 /CUMM) 0.2 Absolute Basophils (0.0 - 0.2 /CUMM) 0.1 Urines Urine Color (YEL,AMB,STR) YEL Urine Clarity (CLEAR) CLEAR Urine pH (5.0 - 8.0) 5.5 Ur Specific [place] (1.001 - 1.035) >= 1.030 Urine Protein (NEG,<30 MG/DL) 100 H Urine Ketones (NEG) NEG Urine Nitrite (NEG) POS H Urine Bilirubin (NEG) NEG Urine Urobilinogen (0.1 - 1.0 EU/dl) 1.0 Ur Leukocyte Esterase (NEG) MOD H Ur Microscopic SEDIMENT EXAMINED Urine RBC (0 - 5 /HPF) 1-3 Urine WBC (0 - 2 /HPF) 25-50 H Ur Epithelial Cells (NONE,FEW) FEW Urine Bacteria (NEG/NONE) MANY H Urine Hemoglobin (NEG) SMALL H Urine Glucose (N MG/DL) NEG Urine Comment A Assessment/Plan Assessment/Plan This 82 year old female with PMH significant for gout, hypothyroidism, uterine cancer s/p hysterectomy, HTN, HLD, DM, CAD s/p PCI and stents on ASA/Plavix presented with acute onset sudden abdominal pain suspicious for biliary colic with gallstones observed on CT scan currently npo / ivf awaiting abdominal ultrasound f/u labs asa/plavix currently held hep sc - dvt ppx accuchecks / ss coverage will d/w
--- NOTE | 2018-02-09 08:00 | PN- Housestaff ---
Subjective Follow-up For: abdominal pain Subjective: Patient was seen after returning from abdominal ultrasound. Patient did not have any c/o, she states her abdominal pain is much better, she was NPO and has not been experiencing any episodes of nausea or vomiting. Review of Systems Constitutional: Denies: chills, diaphoresis, fever. Cardiovascular: Denies: chest pain, palpitations. Gastrointestinal: Denies: abdominal pain, constipation, diarrhea, bloody stool. Objective Last 24 Hrs of Vital Signs/I&O Vital Signs Date Time Temp Pulse Resp B/P B/P Pulse O2 O2 Flow FiO2 Mean Ox Delivery Rate 02/09 1427 98.3 82 20 138/66 92 Room Air 02/09 0836 75 130/54 02/09 0836 75 130/54 02/09 0836 75 130/54 02/09 0642 98.5 87 20 130/58 95 Room Air 02/08 2328 98.3 85 22 130/56 94 Room Air 02/08 2322 Room Air 02/08 2206 99.1 84 16 144/66 96 Room Air 02/08 2100 97.8 87 16 144/60 94 Room Air Intake & Output 02/09 1600 02/09 0800 02/09 0000 Intake Total 440 450 0 Output Total 100 250 Balance 440 350 -250 Intake, IV 400 450 Intake, Oral 40 0 Output, Urine 100 250 Patient 177 lb Weight Weight Bed scale Measurement Method Physical Exam General Appearance: Alert, Oriented X3, Cooperative Cardiovascular: Regular Rate, Normal S1, Normal S2 Lungs: Clear to Auscultation, Normal Air Movement Abdomen: Normal Bowel Sounds, Soft, No Tenderness Extremities: No Cyanosis, No Edema, Normal Pulses Current Medications: Current Medications Sig/Evan Start time Last Medication Dose Route Stop Time Status Admin Acetaminophen 650 MG Q6P PRN 02/08 2330 AC 02/09 PO 1245 Acetaminophen 0 .STK-MED ONE 02/08 1929 DC IV Acetaminophen 1,000 MG ONCE ONE 02/08 1915 DC 02/08 IV 02/09 1916 193 Allopurinol 100 MG DAILY 02/09 09 AC 02/09 PO 0832 Amlodipine Besylate 10 MG DAILY 02/09 09 AC 02/09 PO 0836 Ceftriaxone Sodium 1,000 MG DAILY 02/09 1358 DC IV Ciprofloxacin 400 MG Q12 02/09 1409 AC Dextrose/Water 200 ML IV Dextrose/Sodium 1,000 ML Q20H 02/09 0015 AC 02/09 Chloride IV 0036 Heparin Sodium 5,000 UNIT Q8 02/09 0600 AC (Porcine) SC Insulin Human Regular 0 Q6 02/09 0001 AC 02/09 SC 1241 Levothyroxine Sodium 0.075 MG DAILY 02/09 0900 AC 02/09 PO 0832 Losartan Potassium 50 MG DAILY 02/09 0900 AC 02/09 PO 0836 Magnesium Oxide 400 MG DAILY 02/09 1552 AC 02/09 PO 1649 Metoprolol Tartrate 25 MG BID 02/09 0900 AC 02/09 PO 0836 Metronidazole 500 MG IQ8 02/09 1600 AC N/A 1 UNIT IV Mirabegron 50 MG DAILY 02/09 09 AC 02/09 PO 0829 Non-Formulary 0 SEE ADMIN CRITERIA 02/09 001 DC Medication ANY Non-Formulary 0 SEE ADMIN CRITERIA 02/09 15 DC Medication ANY Ondansetron HCl 4 MG Q6P PRN 02/08 2330 AC IV Rosuvastatin Calcium 20 MG DAILY 02/09 09 AC 02/09 PO 0831 Last 24 Hrs of Lab/Tayo Results Last 24 Hrs of Labs/Mics: Laboratory Tests 02/09/18 0653: Anion Gap 11, Estimated GFR 36 L, BUN/Creatinine Ratio 15.0, Magnesium 1.5 L, Total Bilirubin 1.1, Direct Bilirubin 0.7 H, AST 316 H, ALT 147 H, Alkaline Phosphatase 121, Total Protein 6.4, Albumin 3.6, CBC w Diff MAN DIFF ORDERED, RBC 3.71 L, MCV 81.7, MCH 27.3, MCHC 33.5, RDW 16.8 H, MPV 8.3, Gran % 92.4 H , Lymphocytes % 3.4 L, Monocytes % 4.1, Eosinophils % 0.1, Basophils % 0, Absolute Granulocytes 14.8 H, Segmented Neutrophils 85 H, Band Neutrophils 8 H, Absolute Lymphocytes 0.5 L, Lymphocytes 5 L, Monocytes 2, Absolute Monocytes 0.7 H, Absolute Eosinophils 0, Absolute Basophils 0, Platelet Estimate VERIFIED BY SMEAR, Normocytic RBCs VERIFIED, Normochromic RBCs VERIFIED 02/09/18 0050: Troponin I < 0.01 02/08/18 1750: Anion Gap 14, Estimated GFR 36 L, BUN/Creatinine Ratio 15.0, Glucose 161 H, Calcium 9.6, Total Bilirubin 0.9, AST 102 H, ALT 41, Alkaline Phosphatase 120, Troponin I < 0.01, Total Protein 7.8, Albumin 4.6, Globulin 3.2, Albumin/ Globulin Ratio 1.4, Lipase 384 H, CBC w Diff NO MAN DIFF REQ, RBC 4.33, MCV 81.4, MCH 27.3, MCHC 33.5, RDW 16.4 H, MPV 8.0, Gran % 85.6 H, Lymphocytes % 9.6 L, Monocytes % 3.1, Eosinophils % 1.3, Basophils % 0.4, Absolute Granulocytes 11.0 H, Absolute Lymphocytes 1.2, Absolute Monocytes 0.4, Absolute Eosinophils 0.2, Absolute Basophils 0.1, Urine Color YEL, Urine Clarity CLEAR, Urine pH 5.5, Ur Specific [place] >= 1.030, Urine Protein 100 H, Urine Ketones NEG, Urine Nitrite POS H, Urine Bilirubin NEG, Urine Urobilinogen 1.0, Ur Leukocyte Esterase MOD H, Ur Microscopic SEDIMENT EXAMINED, Urine RBC 1-3, Urine WBC 25-50 H, Ur Epithelial Cells FEW, Urine Bacteria MANY H, Urine Hemoglobin SMALL H, Urine Glucose NEG, Urine Comment A Microbiology 02/09 1357 BLOOD: Blood Culture - ORD 02/09 1357 BLOOD: Blood Culture - ORD 02/09 0246 URINE ROUT: Urine Culture - RECD 02/08 1914 URINE ROUT: Urine Culture - CAN Cancelled: Cancelled via OE: Error Assessment/Plan Assessment: 82 year old female with PMH significant for gout, hypothyroidism, uterine cancer s/p hysterectomy, HTN, HLD, DM, CAD s/p PCI and stents on ASA/Plavix presented with acute onset sudden abdominal pain. Problem list/plan: 1. Abdominal pain 2. Cholelithiasis 3. History of coronary artery disease 4. History of hypertension 5. History of diabetes 6. History of hypothyroidism 7. History of gout 8. History of Overactive bladder #Abdominal Pain: Patient had presented with 3/10 abdominal discomfort, along with nausea and decreased appetite. Patient had one episode of vomitus. CT scan on 02/08/2018 showed gallstones, CBD diameter of 1.2 cm and nonobstructive right renal stone. Patient has increasing white blood cell count with bandemia, worsening LFTs raising a concern for infection in the setting of cholelithiasis. -HIDA scan to rule out acute cholecystitis -Follow liver enzymes, total bili and alk phos. If rash continues and levels consider MRCP #Cholelithiasis: Abdominal CT on 02/07/2018 shows dilation of intrahepatic ducts, dependent calcifications inferiorly in the gallbladder lumen consistent with radiodense gallstones without evidence of gall bladder wall thickening or inflammatory changes. -Patient was evaluated by surgery team who are recommending elective laparoscopic cholecystectomy, after being off of Plavix for 5 days. #History Of CAD: Hypertension Diabetes -NovoLog low-dose sliding scale Hypothyroidism Gout -Continue allopurinol at home dose Overactive bladder -Continue mirabegron DVT prophylaxis: Subcu heparin and ALPS Diet: Consistent carb 2 CODE STATUS: Full code Problem List: 1. Abdominal pain Pain Ratin Pain Location: RUQ Pain Goal: Remain pain free Pain Plan: tylenol Tomorrow's Labs & Rationales: cbc, bep, LFTs, T. Bili, ALP
[2018-02-09 08:20] LABS: ABSOLUTE BASOPHIL COUNT 0 /CUMM (0.0-0.2); ABSOLUTE EOSINOPHIL COUNT 0 /CUMM (0.0-0.7); ABSOLUTE GRANULOCYTE CT 14.8 /CUMM (1.4-6.5); ABSOLUTE LYMPH COUNT 0.5 /CUMM (1.2-3.4); ABSOLUTE MONOCYTE COUNT 0.7 /CUMM (0.10-0.60); BASOPHIL % 0 % (0.0-2.0); EOSINOPHIL % 0.1 % (0-5); GRANULOCYTE % 92.4 % (42.2-75.2); MEAN CORPUSCULAR HGB 27.3 PG (27.0-31.0); MEAN CORPUSCULAR HGB CONC 33.5 G/DL (33.0-37.0); MEAN CORPUSCULAR VOLUME 81.7 FL (81.0-99.0); MEAN PLATELET VOLUME 8.3 FL (7.4-10.4); PLATELET COUNT 258 /CUMM (130-400); RBC DISTRIBUTION WIDTH 16.8 % (11.5-14.5); RED BLOOD CELL CT 3.71 /CUMM (4.20-5.40)
[2018-02-09 08:35] LABS: HEMATOCRIT 30.3 % (37-47)
--- NOTE | 2018-02-09 10:02 | Admission Certification ---
Admission Certification Certification Statement - As attending physician, I certify that at the time of - admission, based on clinical presentation, severity of - symptoms, need for further diagnostic testing and - therapeutic interventions, and risk of adverse outcomes - without in-hospital treatment, in my clinical assessment, - this patient requires an acute hospital stay for a minimum - of two nights or longer. I have also considered psychsocial - factors such as support system, advanced age, financial - issues, cognitive issues, and failed out-patient treatments, - past re-admission history, safety of patient, and lack of - compliance as applicable. Specific rationale supporting this admission is: Abdominal pain probable biliary colic with mildly dilated biliary ducts on CAT scan and gallstones but no cholecystitis. Mild elevation of the white count. And elevated liver function tests.
--- NOTE | 2018-02-09 10:04 | PN- Att Addend ---
Attending Addendum Attending Brief Note 82-year-old white female was in her usual state of health until the day of admission during the afternoon after eating started complaining of this epigastric pain to the right side fairly severe she vomited twice came to the emergency room where she was evaluated. Was found to have a slightly elevated white count and some abnormal liver function test and a CAT scan of the abdomen showed some mildly dilated biliary ducts possibly having passed the stone no cholecystitis. She was seen by surgery was admitted was kept n.p.o. and going for an ultrasound this morning. Overnight she felt better and in the morning she only feels a little discomfort in the area but the pain she had is gone. Depending on the ultrasound results will decide what the next step is. 24 TOTALS 02/09 0000 02/08 0000 Intake Total 0 Output Total 250 Balance -250 Intake, Oral 0 Output, Urine 250 Patient 177 lb Weight Weight Bed scale Measurement Method Current Medications Sig/Evan Start time Last Medication Dose Route Stop Time Status Admin Acetaminophen 650 MG Q6P PRN 02/08 2330 AC 02/09 PO 0521 Acetaminophen 0 .STK-MED ONE 02/08 1929 DC IV Acetaminophen 1,000 MG ONCE ONE 02/08 1915 DC 02/08 IV 02/09 1916 1935 Allopurinol 100 MG DAILY 02/09 900 AC 02/09 PO 0832 Amlodipine Besylate 10 MG DAILY 02/09 09 AC 02/09 PO 0836 Dextrose/Sodium 1,000 ML Q20H 02/09 0015 AC 02/09 Chloride IV 0036 Heparin Sodium 5,000 UNIT Q8 02/09 0600 AC (Porcine) SC Insulin Human Regular 0 Q6 02/09 0001 AC 02/09 SC 0520 Levothyroxine Sodium 0.075 MG DAILY 02/09 09 AC 02/09 PO 0832 Losartan Potassium 50 MG DAILY 02/09 09 AC 02/09 PO 0836 Metoprolol Tartrate 25 MG BID 02/09 900 AC 02/09 PO 0836 Mirabegron 50 MG DAILY 02/09 900 AC 02/09 PO 0829 Non-Formulary 0 SEE ADMIN CRITERIA 02/09 0015 DC Medication ANY Non-Formulary 0 SEE ADMIN CRITERIA 02/09 0015 DC Medication ANY Ondansetron HCl 4 MG Q6P PRN 02/08 2330 AC IV Rosuvastatin Calcium 20 MG DAILY 02/09 0900 AC 02/09 PO 0831 Laboratory Tests 02/09/18 0653: Anion Gap 11, Estimated GFR 36 L, BUN/Creatinine Ratio 15.0, Magnesium 1.5 L, Total Bilirubin 1.1, Direct Bilirubin 0.7 H, AST 316 H, ALT 147 H, Alkaline Phosphatase 121, Total Protein 6.4, Albumin 3.6, CBC w Diff MAN DIFF ORDERED, RBC 3.71 L, MCV 81.7, MCH 27.3, MCHC 33.5, RDW 16.8 H, MPV 8.3, Gran % 92.4 H , Lymphocytes % 3.4 L, Monocytes % 4.1, Eosinophils % 0.1, Basophils % 0, Absolute Granulocytes 14.8 H, Segmented Neutrophils 85 H, Band Neutrophils 8 H, Absolute Lymphocytes 0.5 L, Lymphocytes 5 L, Monocytes 2, Absolute Monocytes 0.7 H, Absolute Eosinophils 0, Absolute Basophils 0, Platelet Estimate VERIFIED BY SMEAR, Normocytic RBCs VERIFIED, Normochromic RBCs VERIFIED 02/09/18 0050: Troponin I < 0.01 02/08/18 1750: Anion Gap 14, Estimated GFR 36 L, BUN/Creatinine Ratio 15.0, Glucose 161 H, Calcium 9.6, Total Bilirubin 0.9, AST 102 H, ALT 41, Alkaline Phosphatase 120, Troponin I < 0.01, Total Protein 7.8, Albumin 4.6, Globulin 3.2, Albumin/ Globulin Ratio 1.4, Lipase 384 H, CBC w Diff NO MAN DIFF REQ, RBC 4.33, MCV 81.4, MCH 27.3, MCHC 33.5, RDW 16.4 H, MPV 8.0, Gran % 85.6 H, Lymphocytes % 9.6 L, Monocytes % 3.1, Eosinophils % 1.3, Basophils % 0.4, Absolute Granulocytes 11.0 H, Absolute Lymphocytes 1.2, Absolute Monocytes 0.4, Absolute Eosinophils 0.2, Absolute Basophils 0.1, Urine Color YEL, Urine Clarity CLEAR, Urine pH 5.5, Ur Specific [place] >= 1.030, Urine Protein 100 H, Urine Ketones NEG, Urine Nitrite POS H, Urine Bilirubin NEG, Urine Urobilinogen 1.0, Ur Leukocyte Esterase MOD H, Ur Microscopic SEDIMENT EXAMINED, Urine RBC 1-3, Urine WBC 25-50 H, Ur Epithelial Cells FEW, Urine Bacteria MANY H, Urine Hemoglobin SMALL H, Urine Glucose NEG, Urine Comment A Vital Signs Date Time Temp Pulse Resp B/P B/P Pulse O2 O2 Flow FiO2 Mean Ox Delivery Rate 02/09 08 75 130/54 02/09 0836 75 130/54 02/09 0836 75 130/54 02/09 0642 98.5 87 20 130/58 95 Room Air 02/08 2328 98.3 85 22 130/56 94 Room Air 02/08 2322 Room Air 02/08 2206 99.1 84 16 144/66 96 Room Air 02/08 2100 97.8 87 16 144/60 94 Room Air 02/08 1721 97.5 72 16 157/79 97 Room Air
--- NOTE | 2018-02-09 10:47 | ULTRASOUND REPORT ---
EXAMINATION: US ABDOMEN LIMITED CLINICAL INFORMATION: Abdominal pain. COMPARISON: None TECHNIQUE: Real-time imaging of the right upper quadrant abdominal viscera. FINDINGS: PANCREAS: Normal. LIVER: Normal. The liver demonstrates normal size, contour and echogenicity. No focal lesion or intrahepatic biliary duct dilatation. GALLBLADDER: Cholelithiasis. COMMON BILE DUCT: Normal in caliber measuring 0.9 cm in diameter. Previously measured at [address] performed 02/08/2018. RIGHT KIDNEY: Normal. No hydronephrosis. No renal calculi or focal parenchymal lesions. The kidney measures 10.7 cm in maximum dimension. FREE FLUID: None. IMPRESSION: Cholelithiasis The common bile duct measured 0.9 cm previously 1.[address] performed 02/08/2018. This appears slightly prominent but may be within the upper limits of normal for patient of this age. Etiology indeterminate
[2018-02-09 14:27] VITALS: BP 138/66
--- NOTE | 2018-02-09 15:54 | Cons- Gastroenterology ---
General Information and HPI Consulting Request Date of Consult: 02/09/18 Requested By: Kamar Flowers MD Reason for Consult: 1. Epigastric pain 2. Abnormal liver associated enzymes 3. Cholelithiasis 4. Leukocytosis 5. Bandemia 6. Nausea and vomiting 7. Abnormal CT scan of the abdomen and pelvis Source of Information: patient Exam Limitations: no limitations History of Present Illness: Ms. Mohamud is an 82 year old female with a PMH CAD, s/p angioplasty who is maintained on Plavix as well as Diabetes Mellitus complicated by neuropathy she was in her usual state of health until Wednesday when she developed severe epigastric pain that lasted 1-2 hours and was associated with nausea and vomiting of bilious material. The pain was bandlike but did not radiate to the back. It lasted until she got to the [facility] emergency department where she was given narcotic analgesia. The pain subsided, but she has felt sore since that time. Upon arrival she had WBC of 12.8 with an H&H of 11.8 and 35.3 and platelets of 340,000. She had 85.6 PMNs. Today her white blood cell count has increased to 16 with 85 segmented neutrophils and 8 bands. Further on admission her AST/ALT was 102/41 and this morning 24 hours later it is 316/147. Total bilirubin went from 0.9-1.1. Alk phos went from 120-121. Lipase was 384 on admission. Albumin was 4.6 on admission and dropped to 3.6 after the first 24 hours of admission. Patient had a CT scan of the abdomen and pelvis with IV contrast on admission the results are as follows. FINDINGS: LUNG BASES: There are linear opacities at the bases bilaterally consistent with atelectasis. There are coronary artery calcifications. There are no pleural or pericardial effusions. LIVER, GALLBLADDER, AND BILIARY TREE: The liver is normal in size and contour. It has diffusely low attenuation, consistent with hepatic steatosis. There is slight prominence of the intrahepatic ducts. The common bile duct has a caliber of 1.2 cm. The gallbladder is well-distended. There are dependent calcifications inferiorly in the gallbladder lumen, consistent with radiodense gallstones. There is no evidence of gallbladder wall thickening or obvious pericholecystic inflammatory changes. PANCREAS: The pancreas has uniform density. There is no stranding in the peripancreatic soft tissues. SPLEEN: The spleen appears normal. ADRENAL GLANDS: The adrenal glands are not enlarged. KIDNEYS AND URETERS: The kidneys are normal in size, shape, and attenuation. There is a 1 cm exophytic cyst off the posterior aspect of the upper pole of the left kidney. There is no hydronephrosis or perinephric stranding. There is a nonobstructive 2 mm calcification at the midpole of the right kidney posteriorly. There is no hydroureter. There are no obstructive renal calculi. BLADDER: The urinary bladder is decompressed. GASTROINTESTINAL TRACT: There is a small hiatal hernia. The stomach is decompressed. The loops of small bowel appear normal. The appendix is not discretely visualized. Although there are small lymph nodes in the mesentery in the right lower abdomen, there is no significant stranding of the pericecal soft tissue to suggest appendicitis. There is moderate stool within the large bowel. There is diverticulosis involving the lower descending colon with extensive changes throughout the sigmoid colon. There is no definite active diverticulitis. ABDOMINAL WALL: There is a fat-containing umbilical hernia. LYMPH NODES: There is no pelvic or abdominal lymphadenopathy. VASCULAR: There are atheromatous calcifications of the aorta and its branches. The infrarenal abdominal aorta is slightly ectatic, but there is no discrete aneurysm. PELVIC VISCERA: The uterus is not visualized, and is likely surgically removed. No masses or free pelvic fluid are noted. OSSEOUS STRUCTURES: There is marked narrowing of intervertebral disc height at L2-L3 and L4-L5 with vacuum discs, sclerotic endplate changes and marginal osteophytes. There are multilevel facet arthropathic changes. There are no suspicious lytic or sclerotic foci. IMPRESSION: 1. There is extensive sigmoid diverticulosis without evidence of active diverticulitis. 2. The liver has diffusely low attenuation consistent with hepatic steatosis. The intrahepatic ducts and common bile duct are mildly prominent; etiology is uncertain. 3. There are calcific calculi dependently in the gallbladder. There is no evidence of acute cholecystitis. 4. The pancreas is unremarkable. 5. There is a nonobstructive right renal calculus. She had an ultrasound of the abdomen, the results of which are as follows: FINDINGS: PANCREAS: Normal. LIVER: Normal. The liver demonstrates normal size, contour and echogenicity. No focal lesion or intrahepatic biliary duct dilatation. GALLBLADDER: Cholelithiasis. COMMON BILE DUCT: Normal in caliber measuring 0.9 cm in diameter. Previously measured at [address] performed 02/08/2018. RIGHT KIDNEY: Normal. No hydronephrosis. No renal calculi or focal parenchymal lesions. The kidney measures 10.7 cm in maximum dimension. FREE FLUID: None. IMPRESSION: Cholelithiasis The common bile duct measured 0.9 cm previously 1.[address] performed 02/08/2018. This appears slightly prominent but may be within the upper limits of normal for patient of this age. Etiology indeterminate Allergies/Medications Allergies: Coded Allergies: Penicillins (HIVES 02/08/18) codeine (N/V 02/08/18) Home Med List: Allopurinol 100 MG TABLET 1 TAB PO DAILY GOUT (Reported) Amlodipine Besylate (Norvasc) 10 MG TABLET 1 TAB PO DAILY HTN (Reported) Aspirin (Ecotrin*) 81 MG TABLET.DR 1 TAB PO DAILY HEART/BLOOD (Reported) Cholecalciferol (Vitamin D3) (Vitamin D) 2,000 UNIT CAPSULE 1 CAP PO DAILY SUPPLEMENT (Reported) Clopidogrel Bisulfate (Plavix) 75 MG TABLET 1 TAB PO DAILY CAD (Reported) Levothyroxine Sodium 75 MCG TABLET 1 TAB PO DAILY THYROID (Reported) Metoprolol Tartrate 25 MG TABLET 1 TAB PO BID HEART/BP (Reported) Mirabegron (Myrbetriq) 50 MG TAB.ER.24H 1 TAB PO DAILY BLADDER (Reported) Rosuvastatin Calcium (Crestor) 20 MG TABLET 1 TAB PO DAILY CHOLESTEROL ( Reported) Sitagliptin Phos/Metformin HCl (Janumet 50-1,000 MG Tablet) 50 MG-1,000 MG TABLET 1 TAB PO BID DM (Reported) Ubidecarenone (Co Q-10) 200 MG CAPSULE 1 CAP PO DAILY SUPPLEMENT (Reported) Valsartan (Diovan) 160 MG TABLET 1 TAB PO DAILY BP (Reported) Current Medications: Current Medications Sig/Evan Start time Last Medication Dose Route Stop Time Status Admin Acetaminophen 650 MG Q6P PRN 02/08 2330 AC 02/09 PO 1245 Acetaminophen 0 .STK-MED ONE 02/08 1929 DC IV Acetaminophen 1,000 MG ONCE ONE 02/08 1915 DC 02/08 IV 02/09 1916 193 Allopurinol 100 MG DAILY 02/09 09 AC 02/09 PO 0832 Amlodipine Besylate 10 MG DAILY 02/09 0900 AC 02/09 PO 0836 Ceftriaxone Sodium 1,000 MG DAILY 02/09 1358 DC IV Ciprofloxacin 400 MG Q12 02/09 1409 AC Dextrose/Water 200 ML IV Dextrose/Sodium 1,000 ML Q20H 02/09 0015 AC 02/09 Chloride IV 0036 Heparin Sodium 5,000 UNIT Q8 02/09 0600 AC (Porcine) SC Insulin Human Regular 0 Q6 02/09 0001 AC 02/09 SC 1241 Levothyroxine Sodium 0.075 MG DAILY 02/09 0900 AC 02/09 PO 0832 Losartan Potassium 50 MG DAILY 02/09 0900 AC 02/09 PO 0836 Metoprolol Tartrate 25 MG BID 02/09 09 AC 02/09 PO 0836 Metronidazole 500 MG IQ8 02/09 1600 AC N/A 1 UNIT IV Mirabegron 50 MG DAILY 02/09 0900 AC 02/09 PO 0829 Non-Formulary 0 SEE ADMIN CRITERIA 02/09 0015 DC Medication ANY Non-Formulary 0 SEE ADMIN CRITERIA 02/09 0015 DC Medication ANY Ondansetron HCl 4 MG Q6P PRN 02/08 2330 AC IV Rosuvastatin Calcium 20 MG DAILY 02/09 0900 AC 02/09 PO 0831 Past History Travel History Traveled to [place] past 21 day No Medical History Blood Transfusion Hx: No Neurological: NONE EENT: NONE Cardiovascular: CAD, hypertension, hyperlipidemia Respiratory: NONE Gastrointestinal: NONE Hepatic: NONE Renal: urinary incontinence Musculoskeletal: gout Psychiatric: NONE Endocrine: diabetes, hypothyroidism, GOUT Blood Disorders: NONE Cancer(s): endometrial cancer CONSOLE MANAGER/Reproductive: NONE Surgical History Surgical History: hysterectomy Family History Relations & Conditions If Any: Relation not specified for: *No pertinent family history Psychosocial History Where Do You Live? Home Services at Home: None Primary Language: [place]ian Smoking Status: Never Smoked ETOH Use: denies use Illicit Drug Use: denies illicit drug use Functional Ability ADLs Independent: dressing, eating, toileting, bathing. Ambulation: independent IADLs Independent: shopping, housework, finances, food prep, telephone, transportation , medication admin. Employment History Employment: Retired Profession/Employer: [employer] Review of Systems Review of Systems Constitutional: Reports: weakness. Denies: chills, diaphoresis, fever, malaise. EENTM: Denies: no symptoms. Cardiovascular: Reports: no symptoms. Respiratory: Reports: no symptoms. GI: Reports: see HPI. Genitourinary: Reports: no symptoms. Musculoskeletal: Reports: joint pain (knee pain). Skin: Reports: no symptoms. Neurological/Psychological: Reports: see HPI. Hematologic/Endocrine: Reports: no symptoms. Exam & Diagnostic Data Vital Signs and I&O Vital Signs Date Time Temp Pulse Resp B/P B/P Pulse O2 O2 Flow FiO2 Mean Ox Delivery Rate 02/09 1427 98.3 82 20 138/66 92 Room Air 02/09 0836 75 130/54 02/09 0836 75 130/54 02/09 0836 75 130/54 02/09 0642 98.5 87 20 130/58 95 Room Air 02/08 2328 98.3 85 22 130/56 94 Room Air 02/08 2322 Room Air 02/08 2206 99.1 84 16 144/66 96 Room Air 02/08 2100 97.8 87 16 144/60 94 Room Air 02/08 1721 97.5 72 16 157/79 97 Room Air Intake & Output 02/09 1600 02/09 0400 02/08 1600 02/08 0400 02/07 1600 02/07 0400 Intake Total 890 0 Output Total 100 250 Balance 790 -250 Intake, IV 850 Intake, Oral 40 0 Output, Urine 100 250 Patient 177 lb Weight Weight Bed scale Measurement Method Physical Exam General Appearance: well developed/nourished, no apparent distress, alert, awake , mild distress Head: atraumatic, normal appearance Eyes: Bilateral: normal appearance. Ears, Nose, Throat: hearing grossly normal Neck: supple, full range of motion Respiratory: normal breath sounds, lungs clear Cardiovascular: regular rate/rhythm, Normal S1 and S2 without rub, murmur or gallop Gastrointestinal: normal bowel sounds, soft, mild epigastric tenderness, no rebound or guarding. negative Khanna's sign. Extremities: pedal edema Neurologic/Psych: alert, oriented x 3, normal mood/affect Cranial Nerves: cranial nerves II-XII grossly intact Skin: normal color, warm/dry Results Pertinent Lab Results: Laboratory Tests 02/09 02/09 0653 0050 Chemistry Sodium (137 - 145 mmol/L) 137 Potassium (3.5 - 5.1 mmol/L) 4.0 Chloride (98 - 107 mmol/L) 102 Carbon Dioxide (22 - 30 mmol/L) 25 Anion Gap (5 - 16) 11 BUN (7 - 17 mg/dL) 21 H Creatinine (0.5 - 1.0 mg/dL) 1.4 H Estimated GFR (>60 ml/min) 36 L BUN/Creatinine Ratio (7 - 25 %) 15.0 Magnesium (1.6 - 2.3 mg/dL) 1.5 L Total Bilirubin (0.2 - 1.3 mg/dL) 1.1 Direct Bilirubin (< 0.4 mg/dL) 0.7 H AST (14 - 36 U/L) 316 H ALT (9 - 52 U/L) 147 H Alkaline Phosphatase (<127 U/L) 121 Troponin I (< 0.11 ng/ml) < 0.01 Total Protein (6.3 - 8.2 g/dL) 6.4 Albumin (3.5 - 5.0 g/dL) 3.6 Hematology CBC w Diff MAN DIFF ORDERED WBC (4.8 - 10.8 /CUMM) 16.0 H RBC (4.20 - 5.40 /CUMM) 3.71 L Hgb (12.0 - 16.0 G/DL) 10.1 L Hct (37 - 47 %) 30.3 L MCV (81.0 - 99.0 FL) 81.7 MCH (27.0 - 31.0 PG) 27.3 MCHC (33.0 - 37.0 G/DL) 33.5 RDW (11.5 - 14.5 %) 16.8 H Plt Count (130 - 400 /CUMM) 258 MPV (7.4 - 10.4 FL) 8.3 Gran % (42.2 - 75.2 %) 92.4 H Lymphocytes % (20.5 - 51.1 %) 3.4 L Monocytes % (1.7 - 9.3 %) 4.1 Eosinophils % (0 - 5 %) 0.1 Basophils % (0.0 - 2.0 %) 0 Absolute Granulocytes (1.4 - 6.5 /CUMM) 14.8 H Segmented Neutrophils (42.2 - 75.2 %) 85 H Band Neutrophils (0.0 - 5.0 %) 8 H Absolute Lymphocytes (1.2 - 3.4 /CUMM) 0.5 L Lymphocytes (20.5 - 51.1 %) 5 L Monocytes (1.7 - 9.3 %) 2 Absolute Monocytes (0.10 - 0.60 /CUMM) 0.7 H Absolute Eosinophils (0.0 - 0.7 /CUMM) 0 Absolute Basophils (0.0 - 0.2 /CUMM) 0 Platelet Estimate (ADEQUATE) VERIFIED BY SMEAR Normocytic RBCs VERIFIED Normochromic RBCs VERIFIED 02/08 1750 Chemistry Sodium (137 - 145 mmol/L) 140 Potassium (3.5 - 5.1 mmol/L) 4.1 Chloride (98 - 107 mmol/L) 102 Carbon Dioxide (22 - 30 mmol/L) 24 Anion Gap (5 - 16) 14 BUN (7 - 17 mg/dL) 21 H Creatinine (0.5 - 1.0 mg/dL) 1.4 H Estimated GFR (>60 ml/min) 36 L BUN/Creatinine Ratio (7 - 25 %) 15.0 Glucose (65 - 99 mg/dL) 161 H Calcium (8.4 - 10.2 mg/dL) 9.6 Total Bilirubin (0.2 - 1.3 mg/dL) 0.9 AST (14 - 36 U/L) 102 H ALT (9 - 52 U/L) 41 Alkaline Phosphatase (<127 U/L) 120 Troponin I (< 0.11 ng/ml) < 0.01 Total Protein (6.3 - 8.2 g/dL) 7.8 Albumin (3.5 - 5.0 g/dL) 4.6 Globulin (1.9 - 4.2 gm/dL) 3.2 Albumin/Globulin Ratio (1.1 - 2.2 %) 1.4 Lipase (23 - 300 U/L) 384 H Hematology CBC w Diff NO MAN DIFF REQ WBC (4.8 - 10.8 /CUMM) 12.8 H RBC (4.20 - 5.40 /CUMM) 4.33 Hgb (12.0 - 16.0 G/DL) 11.8 L Hct (37 - 47 %) 35.3 L MCV (81.0 - 99.0 FL) 81.4 MCH (27.0 - 31.0 PG) 27.3 MCHC (33.0 - 37.0 G/DL) 33.5 RDW (11.5 - 14.5 %) 16.4 H Plt Count (130 - 400 /CUMM) 340 MPV (7.4 - 10.4 FL) 8.0 Gran % (42.2 - 75.2 %) 85.6 H Lymphocytes % (20.5 - 51.1 %) 9.6 L Monocytes % (1.7 - 9.3 %) 3.1 Eosinophils % (0 - 5 %) 1.3 Basophils % (0.0 - 2.0 %) 0.4 Absolute Granulocytes (1.4 - 6.5 /CUMM) 11.0 H Absolute Lymphocytes (1.2 - 3.4 /CUMM) 1.2 Absolute Monocytes (0.10 - 0.60 /CUMM) 0.4 Absolute Eosinophils (0.0 - 0.7 /CUMM) 0.2 Absolute Basophils (0.0 - 0.2 /CUMM) 0.1 Urines Urine Color (YEL,AMB,STR) YEL Urine Clarity (CLEAR) CLEAR Urine pH (5.0 - 8.0) 5.5 Ur Specific [place] (1.001 - 1.035) >= 1.030 Urine Protein (NEG,<30 MG/DL) 100 H Urine Ketones (NEG) NEG Urine Nitrite (NEG) POS H Urine Bilirubin (NEG) NEG Urine Urobilinogen (0.1 - 1.0 EU/dl) 1.0 Ur Leukocyte Esterase (NEG) MOD H Ur Microscopic SEDIMENT EXAMINED Urine RBC (0 - 5 /HPF) 1-3 Urine WBC (0 - 2 /HPF) 25-50 H Ur Epithelial Cells (NONE,FEW) FEW Urine Bacteria (NEG/NONE) MANY H Urine Hemoglobin (NEG) SMALL H Urine Glucose (N MG/DL) NEG Urine Comment A Assessment/Plan Assessment/Recommendations: ASSESSMENT: 1. Epigastric pain --this pain likely represents biliary colic. Patient's pain may be somewhat atypical and although she does not have rebound or guarding, she still may have acute cholecystitis. Normal experience of abdomina pain may be blunted in diabetics with neuropathy. 2. Abnormal liver associated enzymes. At this time patient does not meet criteria for urgent ERCP and pattern of elevated liver enzymes does not suggest biliary obstruction. Patient may have elevated transaminases which are due to contiguous inflammation from acute cholecystitis, rather than choledocholithiasis. 3. Cholelithiasis 4. Leukocytosis. Patient's white blood cell count has been increasing since admission, although patient remains afebrile 5. Bandemia 6. Nausea and vomiting -- None further 7. Abnormal CT scan of the abdomen and pelvis RECOMMENDATIONS: 1. HIDA scan to rule out acute cholecystitis. May also give information regarding CBD. 2. Start antibiotics as patient has increasing white blood cell count with bandemia. Would give Cipro and Flagyl given penicillin allergy. 3. Follow liver associated enzymes, As well as CBC. 4. If liver enzymes continue to rise along with T. Bili and alk phos consider MRCP. 5. Follow CMP and CBC. 6. If no evidence of choledocholithiasis would proceed with cholecystectomy. Consult Acknowledgment - Thank you for your consult request.
--- NOTE | 2018-02-09 16:30 | NUCLEAR MEDICINE REPORT ---
EXAMINATION: NM BILIARY TRACT IMAGING CLINICAL INFORMATION: Abdominal pain and vomiting. Assess for cholecystitis. COMPARISON: Abdominal ultrasound earlier 02/09/2018. TECHNIQUE: Serial gamma scintillation camera images were obtained over the abdomen for a total observation period of 75 minutes following the intravenous administration of 5.2 mCi Tc-99m Choletec. FINDINGS: There is good concentration of activity in the liver by 5 minutes post injection. Biliary activity is visualized by 30 minutes. The gallbladder is well visualized by 60 minutes. Small bowel is well visualized by 40 minutes. At the end of the study there is good clearance of activity from the liver and visualization of diffuse small bowel activity. IMPRESSION: 1. Visualization of the gallbladder is evidence of a patent cystic duct and strong evidence against the diagnosis of acute cholecystitis. 2. The common bile duct is patent. 3. Liver function appears normal.
[2018-02-09 22:00] VITALS: BP 158/68
[2018-02-10 05:52] VITALS: BP 140/68
--- NOTE | 2018-02-10 07:23 | PN- Housestaff ---
Subjective Follow-up For: abdominal pain Subjective: Pt seen and examined today. No telemetry events. She states feeling much better - abdominal pain present on admission has resolved, though still feels an ache especially when coughing. She is ambulating, and tolerating PO well, though she did say she wanted to "take it slow". No nausea or vomiting present. No other acute complains. Review of Systems Constitutional: Reports: see HPI. EENTM: Reports: no symptoms. Cardiovascular: Reports: no symptoms. Respiratory: Reports: no symptoms. Gastrointestinal: Reports: see HPI. Genitourinary: Reports: no symptoms. Objective Last 24 Hrs of Vital Signs/I&O Vital Signs Date Time Temp Pulse Resp B/P B/P Pulse O2 O2 Flow FiO2 Mean Ox Delivery Rate 02/10 0900 78 140/68 02/10 0836 140/68 02/10 0836 78 140/68 02/10 0552 98.0 78 22 140/68 92 Room Air 02/09 2200 98.2 81 22 158/68 93 Room Air 02/09 2110 9 Room Air 02/09 2103 81 158/68 02/09 1427 98.3 82 20 138/66 92 Room Air Intake & Output 02/10 1600 02/10 0800 02/10 0000 Intake Total 340 490 Output Total 200 Balance 140 490 Intake, IV 100 250 Intake, Oral 240 240 Number 0 Bowel Movements Output, Urine 200 Patient 198 lb 199 lb Weight Weight Bed scale Measurement Method Physical Exam General Appearance: Alert, Oriented X3, Cooperative, No Acute Distress HEENT: Atraumatic, EOMI Neck: Supple Cardiovascular: Regular Rate, Normal S1, Normal S2, No Murmurs Lungs: Clear to Auscultation, Normal Air Movement Abdomen: Normal Bowel Sounds, Soft, tender on deep palpation diffusely across the abdomen. Neurological: Normal Speech Extremities: No Clubbing, No Cyanosis, No Edema Current Medications: Current Medications Sig/Evan Start time Last Medication Dose Route Stop Time Status Admin Acetaminophen 650 MG Q6P PRN 02/08 2330 AC 02/09 PO 210 Allopurinol 100 MG DAILY 02/09 09 AC 02/10 PO 835 Amlodipine Besylate 10 MG DAILY 02/09 09 AC 02/10 PO 08 Ceftriaxone Sodium 1,000 MG DAILY 02/09 1358 DC IV Ciprofloxacin 400 MG Q12 02/09 1409 AC 02/10 Dextrose/Water 200 ML IV 1009 Dextrose/Sodium 1,000 ML Q20H 02/09 0015 DC 02/09 Chloride IV 0036 Heparin Sodium 5,000 UNIT Q8 02/09 0600 AC (Porcine) SC Insulin Aspart 0 TIDAC 02/10 0800 AC 02/10 SC 1221 Insulin Human Regular 0 Q6 02/09 0001 DC 02/09 SC 1241 Levothyroxine Sodium 0.075 MG DAILY 02/09 0900 AC 02/10 PO 0834 Losartan Potassium 50 MG DAILY 02/09 0900 AC 02/10 PO 0900 Magnesium Oxide 400 MG DAILY 02/09 1552 AC 02/10 PO 0834 Metoprolol Tartrate 25 MG BID 02/09 0900 AC 02/10 PO 0836 Metronidazole 500 MG IQ8 02/09 1600 AC 02/10 N/A 1 UNIT IV 0837 Mirabegron 50 MG DAILY 02/09 0900 AC 02/10 PO 0834 Ondansetron HCl 4 MG Q6P PRN 02/08 2330 AC IV Rosuvastatin Calcium 20 MG DAILY 02/09 0900 AC 02/10 PO 0842 Last 24 Hrs of Lab/Tayo Results Last 24 Hrs of Labs/Mics: Laboratory Tests 02/10/18 0630: Anion Gap 10, Estimated GFR 39 L, BUN/Creatinine Ratio 13.8, Total Bilirubin 1.2, Direct Bilirubin 0.7 H, AST 213 H, ALT 139 H, Alkaline Phosphatase 147 H, Total Protein 6.4, Albumin 3.5, CBC w Diff NO MAN DIFF REQ, RBC 3.85 L, MCV 81.8, MCH 27.3, MCHC 33.4, RDW 16.6 H, MPV 8.4, Gran % 88.3 H, Lymphocytes % 3.9 L, Monocytes % 6.4, Eosinophils % 1.2, Basophils % 0.2, Absolute Granulocytes 11.1 H, Absolute Lymphocytes 0.5 L, Absolute Monocytes 0.8 H, Absolute Eosinophils 0.1, Absolute Basophils 0 Microbiology 02/09 1825 BLOOD: Blood Culture - RES 02/09 1357 BLOOD: Blood Culture - CAN Cancelled: SPECIMEN NOT RECEIVED. Assessment/Plan Assessment: 82 y/o F with PMH of gout, hypothyroidism, uterine cancer s/p hysterectomy, HTN, HLD, DM, CAD s/p PCI and stents on ASA/Plavix presented with acute onset sudden abdominal pain. ASSESSMENT #Abdominal pain likely 2/2 cholelithiasis #History of coronary artery disease #History of hypertension #History of diabetes #History of hypothyroidism #History of gout #History of Overactive bladder #Abdominal Pain 2/2 cholelithiasis: on presentation had epigastric pain along with nausea, vomiting and decreased appetite. CT scan on 02/08/2018 showed gallstones, CBD diameter of 1.2 cm and nonobstructive right renal stone. Pt had leukocytosis with bandemia, worsening LFT. Now both on a decreasing trend. GI has been following and strongly recommended surgical intervention for the patient. She has been off Plavix for 3 days. HIDA scan did rule out acute cholecystitis. -F/u liver enzymes #History Of CAD: #Hypertension #Diabetes -NovoLog low-dose sliding scale #Hypothyroidism #Gout -Continue allopurinol at home dose #Overactive bladder -Continue mirabegron DVT prophylaxis: Subcu heparin and ALPS Diet: Consistent carb 2 CODE STATUS: Full code Problem List: 1. Abdominal pain 2. Cholelithiasis Pain Ratin Pain Location: diffusely across the abdomen Pain Goal: Pain 4 or less Pain Plan: acetaminophen po for mild pain Tomorrow's Labs & Rationales: .
--- NOTE | 2018-02-10 07:26 | PN- General Surgery ---
Core Measures Venous Thromboembolism VTE Risk Factors Age>40 No Mechanical VTE Prophylaxis d/t N/A MechProphylax Ordered No VTE Pharm Prophylaxis d/t NA PharmProphylax ordered
[2018-02-10 08:20] LABS: ABSOLUTE BASOPHIL COUNT 0 /CUMM (0.0-0.2); ABSOLUTE EOSINOPHIL COUNT 0.1 /CUMM (0.0-0.7); ABSOLUTE GRANULOCYTE CT 11.1 /CUMM (1.4-6.5); ABSOLUTE LYMPH COUNT 0.5 /CUMM (1.2-3.4); ABSOLUTE MONOCYTE COUNT 0.8 /CUMM (0.10-0.60); BASOPHIL % 0.2 % (0.0-2.0); EOSINOPHIL % 1.2 % (0-5); HEMATOCRIT 31.5 % (37-47); MEAN CORPUSCULAR HGB 27.3 PG (27.0-31.0); MEAN CORPUSCULAR HGB CONC 33.4 G/DL (33.0-37.0); MEAN CORPUSCULAR VOLUME 81.8 FL (81.0-99.0); MEAN PLATELET VOLUME 8.4 FL (7.4-10.4); PLATELET COUNT 227 /CUMM (130-400); RBC DISTRIBUTION WIDTH 16.6 % (11.5-14.5); RED BLOOD CELL CT 3.85 /CUMM (4.20-5.40); WHITE BLOOD CELL COUNT 12.6 /CUMM (4.8-10.8)
[2018-02-10 09:37] LABS: GRANULOCYTE % 88.3 % (42.2-75.2)
--- NOTE | 2018-02-10 10:14 | PN- General Surgery ---
See Addendum Subjective Subjective: Patient doing well this am. She denies any further abdominal pain, n/v. Reports full bowel function. She tolerated PO intake last HS without any difficulty. Also ambulating and voiding. No other issues or complaints. Objective Vital Signs and I&Os Vital Signs Date Time Temp Pulse Resp B/P B/P Pulse O2 O2 Flow FiO2 Mean Ox Delivery Rate 02/10 0900 78 140/68 02/10 0836 140/68 02/10 0836 78 140/68 02/10 0552 98.0 78 22 140/68 92 Room Air 02/09 2200 98.2 81 22 158/68 93 Room Air 02/09 2110 9 Room Air 02/09 2103 81 158/68 02/09 1427 98.3 82 20 138/66 92 Room Air Intake & Output 02/10 1600 02/10 0800 02/10 0000 02/09 1600 02/09 0800 02/09 0000 Intake Total 340 490 440 450 0 Output Total 200 100 250 Balance 140 490 440 350 -250 Intake, IV 100 250 400 450 Intake, Oral 240 240 40 0 Number 0 Bowel Movements Output, Urine 200 100 250 Patient 198 lb 199 lb 177 lb Weight Weight Bed scale Bed scale Measurement Method Physical Exam: General: A, A, NAD Abdomen: Obese, S, NT, ND Extremities: No clubbing, cyanosis or edema Current Medications: Current Medications Sig/Evan Start time Last Medication Dose Route Stop Time Status Admin Acetaminophen 650 MG Q6P PRN 02/08 2330 AC 02/09 PO 2103 Allopurinol 100 MG DAILY 02/09 09 AC 02/10 PO 0836 Amlodipine Besylate 10 MG DAILY 02/09 09 AC 02/10 PO 0836 Ceftriaxone Sodium 1,000 MG DAILY 02/09 1358 DC IV Ciprofloxacin 400 MG Q12 02/09 1409 AC 02/09 Dextrose/Water 200 ML IV 2035 Dextrose/Sodium 1,000 ML Q20H 02/09 0015 DC 02/09 Chloride IV 0036 Heparin Sodium 5,000 UNIT Q8 02/09 06 AC (Porcine) SC Insulin Aspart 0 TIDAC 02/10 08 AC SC Insulin Human Regular 0 Q6 02/09 0001 DC 02/09 SC 1241 Levothyroxine Sodium 0.075 MG DAILY 02/09 09 AC 02/10 PO 0834 Losartan Potassium 50 MG DAILY 02/09 900 AC 02/10 PO 0900 Magnesium Oxide 400 MG DAILY 02/09 1552 AC 02/10 PO 0834 Metoprolol Tartrate 25 MG BID 02/09 09 AC 02/10 PO 0836 Metronidazole 500 MG IQ8 02/09 1600 AC 02/10 N/A 1 UNIT IV 0837 Mirabegron 50 MG DAILY 02/09 900 AC 02/10 PO 0834 Ondansetron HCl 4 MG Q6P PRN 02/08 2330 AC IV Rosuvastatin Calcium 20 MG DAILY 02/09 900 AC 02/10 PO 0842 Results Last 48 Hours of Labs: Laboratory Tests 02/10 02/09 0630 0653 Chemistry Sodium (137 - 145 mmol/L) 137 137 Potassium (3.5 - 5.1 mmol/L) 3.6 4.0 Chloride (98 - 107 mmol/L) 104 102 Carbon Dioxide (22 - 30 mmol/L) 23 25 Anion Gap (5 - 16) 10 11 BUN (7 - 17 mg/dL) 18 H 21 H Creatinine (0.5 - 1.0 mg/dL) 1.3 H 1.4 H Estimated GFR (>60 ml/min) 39 L 36 L BUN/Creatinine Ratio (7 - 25 %) 13.8 15.0 Magnesium (1.6 - 2.3 mg/dL) 1.5 L Total Bilirubin (0.2 - 1.3 mg/dL) 1.2 1.1 Direct Bilirubin (< 0.4 mg/dL) 0.7 H 0.7 H AST (14 - 36 U/L) 213 H 316 H ALT (9 - 52 U/L) 139 H 147 H Alkaline Phosphatase (<127 U/L) 147 H 121 Total Protein (6.3 - 8.2 g/dL) 6.4 6.4 Albumin (3.5 - 5.0 g/dL) 3.5 3.6 Hematology CBC w Diff NO MAN DIFF REQ MAN DIFF ORDERED WBC (4.8 - 10.8 /CUMM) 12.6 H 16.0 H RBC (4.20 - 5.40 /CUMM) 3.85 L 3.71 L Hgb (12.0 - 16.0 G/DL) 10.5 L 10.1 L Hct (37 - 47 %) 31.5 L 30.3 L MCV (81.0 - 99.0 FL) 81.8 81.7 MCH (27.0 - 31.0 PG) 27.3 27.3 MCHC (33.0 - 37.0 G/DL) 33.4 33.5 RDW (11.5 - 14.5 %) 16.6 H 16.8 H Plt Count (130 - 400 /CUMM) 227 258 MPV (7.4 - 10.4 FL) 8.4 8.3 Gran % (42.2 - 75.2 %) 88.3 H 92.4 H Lymphocytes % (20.5 - 51.1 %) 3.9 L 3.4 L Monocytes % (1.7 - 9.3 %) 6.4 4.1 Eosinophils % (0 - 5 %) 1.2 0.1 Basophils % (0.0 - 2.0 %) 0.2 0 Absolute Granulocytes (1.4 - 6.5 /CUMM) 11.1 H 14.8 H Segmented Neutrophils (42.2 - 75.2 %) 85 H Band Neutrophils (0.0 - 5.0 %) 8 H Absolute Lymphocytes (1.2 - 3.4 /CUMM) 0.5 L 0.5 L Lymphocytes (20.5 - 51.1 %) 5 L Monocytes (1.7 - 9.3 %) 2 Absolute Monocytes (0.10 - 0.60 /CUMM) 0.8 H 0.7 H Absolute Eosinophils (0.0 - 0.7 /CUMM) 0.1 0 Absolute Basophils (0.0 - 0.2 /CUMM) 0 0 Platelet Estimate (ADEQUATE) VERIFIED BY SMEAR Normocytic RBCs VERIFIED Normochromic RBCs VERIFIED 02/09 02/08 0050 1750 Chemistry Sodium (137 - 145 mmol/L) 140 Potassium (3.5 - 5.1 mmol/L) 4.1 Chloride (98 - 107 mmol/L) 102 Carbon Dioxide (22 - 30 mmol/L) 24 Anion Gap (5 - 16) 14 BUN (7 - 17 mg/dL) 21 H Creatinine (0.5 - 1.0 mg/dL) 1.4 H Estimated GFR (>60 ml/min) 36 L BUN/Creatinine Ratio (7 - 25 %) 15.0 Glucose (65 - 99 mg/dL) 161 H Calcium (8.4 - 10.2 mg/dL) 9.6 Total Bilirubin (0.2 - 1.3 mg/dL) 0.9 AST (14 - 36 U/L) 102 H ALT (9 - 52 U/L) 41 Alkaline Phosphatase (<127 U/L) 120 Troponin I (< 0.11 ng/ml) < 0.01 < 0.01 Total Protein (6.3 - 8.2 g/dL) 7.8 Albumin (3.5 - 5.0 g/dL) 4.6 Globulin (1.9 - 4.2 gm/dL) 3.2 Albumin/Globulin Ratio (1.1 - 2.2 %) 1.4 Lipase (23 - 300 U/L) 384 H Hematology CBC w Diff NO MAN DIFF REQ WBC (4.8 - 10.8 /CUMM) 12.8 H RBC (4.20 - 5.40 /CUMM) 4.33 Hgb (12.0 - 16.0 G/DL) 11.8 L Hct (37 - 47 %) 35.3 L MCV (81.0 - 99.0 FL) 81.4 MCH (27.0 - 31.0 PG) 27.3 MCHC (33.0 - 37.0 G/DL) 33.5 RDW (11.5 - 14.5 %) 16.4 H Plt Count (130 - 400 /CUMM) 340 MPV (7.4 - 10.4 FL) 8.0 Gran % (42.2 - 75.2 %) 85.6 H Lymphocytes % (20.5 - 51.1 %) 9.6 L Monocytes % (1.7 - 9.3 %) 3.1 Eosinophils % (0 - 5 %) 1.3 Basophils % (0.0 - 2.0 %) 0.4 Absolute Granulocytes (1.4 - 6.5 /CUMM) 11.0 H Absolute Lymphocytes (1.2 - 3.4 /CUMM) 1.2 Absolute Monocytes (0.10 - 0.60 /CUMM) 0.4 Absolute Eosinophils (0.0 - 0.7 /CUMM) 0.2 Absolute Basophils (0.0 - 0.2 /CUMM) 0.1 Urines Urine Color (YEL,AMB,STR) YEL Urine Clarity (CLEAR) CLEAR Urine pH (5.0 - 8.0) 5.5 Ur Specific [place] (1.001 - 1.035) >= 1.030 Urine Protein (NEG,<30 MG/DL) 100 H Urine Ketones (NEG) NEG Urine Nitrite (NEG) POS H Urine Bilirubin (NEG) NEG Urine Urobilinogen (0.1 - 1.0 EU/dl) 1.0 Ur Leukocyte Esterase (NEG) MOD H Ur Microscopic SEDIMENT EXAMINED Urine RBC (0 - 5 /HPF) 1-3 Urine WBC (0 - 2 /HPF) 25-50 H Ur Epithelial Cells (NONE,FEW) FEW Urine Bacteria (NEG/NONE) MANY H Urine Hemoglobin (NEG) SMALL H Urine Glucose (N MG/DL) NEG Urine Comment A Recent Imaging Studies: HIDA 02/09/18: Visualization of the gallbladder is evidence of a patent cystic duct and strong evidence against the diagnosis of acute cholecystitis. The common bile duct is patent. Liver function appears normal. RUQ US 02/09/18: Cholelithiasis. The common bile duct measured 0.9 cm previously 1.[address] performed 02/08/2018. This appears slightly prominent but may be within the upper limits of normal for patient of this age. Etiology indeterminate. Assessment/Plan Assessment/Plan This is an 82 year old female with PMHx significant for gout, hypothyroidism, uterine cancer s/p hysterectomy, HTN, HLD, DM, CAD s/p PCI and stents on ASA/ Plavix presented with acute onset of sudden abdominal pain. Workup c/w with choledocholithiasis which spontaneously resolved without GI or Surgical intervention. From a surgical standpoint we would recommend a low fat diet and follow up with Dr. Vasquez as an outpatient. We will sign off. Please call with any problems, questions or concerns or change in clinical picture. Thank you for allowing us to participate in this patients care.
--- NOTE | 2018-02-10 10:18 | PN- Att Addend ---
Attending Addendum Attending Brief Note Patient looking and feeling better. Only a little discomfort in the abdomen. Vital signs are stable no fever no major changes in physical. The findings of the HIDA scan were noted. Will check with gastroenterology see if the patient can be discharged and if there is a need for antibiotic treatment. White count is 12,600 today Intake & Output 02/10 1600 02/10 0400 02/09 1600 02/09 0400 02/08 1600 02/08 0400 Intake Total 340 490 890 0 Output Total 200 100 250 Balance 340 290 790 -250 Intake, IV 100 250 850 Intake, Oral 240 240 40 0 Number 0 Bowel Movements Output, Urine 200 100 250 Patient 198 lb 199 lb 177 lb Weight Weight Bed scale Bed scale Measurement Method Current Medications Sig/Evan Start time Last Medication Dose Route Stop Time Status Admin Acetaminophen 650 MG Q6P PRN 02/08 2330 AC 02/09 PO 2103 Allopurinol 100 MG DAILY 02/09 09 AC 02/10 PO 0836 Amlodipine Besylate 10 MG DAILY 02/09 09 AC 02/10 PO 0836 Ceftriaxone Sodium 1,000 MG DAILY 02/09 1358 DC IV Ciprofloxacin 400 MG Q12 02/09 1409 AC 02/10 Dextrose/Water 200 ML IV 1009 Dextrose/Sodium 1,000 ML Q20H 02/09 0015 DC 02/09 Chloride IV 0036 Heparin Sodium 5,000 UNIT Q8 02/09 0600 AC (Porcine) SC Insulin Aspart 0 TIDAC 02/10 0800 AC SC Insulin Human Regular 0 Q6 02/09 0001 DC 02/09 SC 1241 Levothyroxine Sodium 0.075 MG DAILY 02/09 09 AC 02/10 PO 0834 Losartan Potassium 50 MG DAILY 02/09 0900 AC 02/10 PO 0900 Magnesium Oxide 400 MG DAILY 02/09 1552 AC 02/10 PO 0834 Metoprolol Tartrate 25 MG BID 02/09 09 AC 02/10 PO 0836 Metronidazole 500 MG IQ8 02/09 1600 AC 02/10 N/A 1 UNIT IV 0837 Mirabegron 50 MG DAILY 02/09 09 AC 02/10 PO 0834 Ondansetron HCl 4 MG Q6P PRN 02/08 2330 AC IV Rosuvastatin Calcium 20 MG DAILY 02/09 09 AC 02/10 PO 0842 Laboratory Tests 02/10/18 0630: Anion Gap 10, Estimated GFR 39 L, BUN/Creatinine Ratio 13.8, Total Bilirubin 1.2, Direct Bilirubin 0.7 H, AST 213 H, ALT 139 H, Alkaline Phosphatase 147 H, Total Protein 6.4, Albumin 3.5, CBC w Diff NO MAN DIFF REQ, RBC 3.85 L, MCV 81.8, MCH 27.3, MCHC 33.4, RDW 16.6 H, MPV 8.4, Gran % 88.3 H, Lymphocytes % 3.9 L, Monocytes % 6.4, Eosinophils % 1.2, Basophils % 0.2, Absolute Granulocytes 11.1 H, Absolute Lymphocytes 0.5 L, Absolute Monocytes 0.8 H, Absolute Eosinophils 0.1, Absolute Basophils 0 02/09/18 0653: Anion Gap 11, Estimated GFR 36 L, BUN/Creatinine Ratio 15.0, Magnesium 1.5 L, Total Bilirubin 1.1, Direct Bilirubin 0.7 H, AST 316 H, ALT 147 H, Alkaline Phosphatase 121, Total Protein 6.4, Albumin 3.6, CBC w Diff MAN DIFF ORDERED, RBC 3.71 L, MCV 81.7, MCH 27.3, MCHC 33.5, RDW 16.8 H, MPV 8.3, Gran % 92.4 H , Lymphocytes % 3.4 L, Monocytes % 4.1, Eosinophils % 0.1, Basophils % 0, Absolute Granulocytes 14.8 H, Segmented Neutrophils 85 H, Band Neutrophils 8 H, Absolute Lymphocytes 0.5 L, Lymphocytes 5 L, Monocytes 2, Absolute Monocytes 0.7 H, Absolute Eosinophils 0, Absolute Basophils 0, Platelet Estimate VERIFIED BY SMEAR, Normocytic RBCs VERIFIED, Normochromic RBCs VERIFIED 02/09/18 0050: Troponin I < 0.01 02/08/18 1750: Anion Gap 14, Estimated GFR 36 L, BUN/Creatinine Ratio 15.0, Glucose 161 H, Calcium 9.6, Total Bilirubin 0.9, AST 102 H, ALT 41, Alkaline Phosphatase 120, Troponin I < 0.01, Total Protein 7.8, Albumin 4.6, Globulin 3.2, Albumin/ Globulin Ratio 1.4, Lipase 384 H, CBC w Diff NO MAN DIFF REQ, RBC 4.33, MCV 81.4, MCH 27.3, MCHC 33.5, RDW 16.4 H, MPV 8.0, Gran % 85.6 H, Lymphocytes % 9.6 L, Monocytes % 3.1, Eosinophils % 1.3, Basophils % 0.4, Absolute Granulocytes 11.0 H, Absolute Lymphocytes 1.2, Absolute Monocytes 0.4, Absolute Eosinophils 0.2, Absolute Basophils 0.1, Urine Color YEL, Urine Clarity CLEAR, Urine pH 5.5, Ur Specific [place] >= 1.030, Urine Protein 100 H, Urine Ketones NEG, Urine Nitrite POS H, Urine Bilirubin NEG, Urine Urobilinogen 1.0, Ur Leukocyte Esterase MOD H, Ur Microscopic SEDIMENT EXAMINED, Urine RBC 1-3, Urine WBC 25-50 H, Ur Epithelial Cells FEW, Urine Bacteria MANY H, Urine Hemoglobin SMALL H, Urine Glucose NEG, Urine Comment A Microbiology 02/09 1825 BLOOD: Blood Culture - RECD 02/09 1357 BLOOD: Blood Culture - CAN Cancelled: SPECIMEN NOT RECEIVED. 02/09 246 URINE ROUT: Urine Culture - RECD 02/08 1914 URINE ROUT: Urine Culture - CAN Cancelled: Cancelled via OE: Error Microbiology 02/09 1825 BLOOD: Blood Culture - RECD 02/09 1357 BLOOD: Blood Culture - CAN Cancelled: SPECIMEN NOT RECEIVED. 02/09 246 URINE ROUT: Urine Culture - RECD 02/08 1914 URINE ROUT: Urine Culture - CAN Cancelled: Cancelled via OE: Error Vital Signs Date Time Temp Pulse Resp B/P B/P Pulse O2 O2 Flow FiO2 Mean Ox Delivery Rate 02/10 0900 78 140/68 02/10 0836 140/68 02/10 0836 78 140/68 02/10 0552 98.0 78 22 140/68 92 Room Air 02/09 2200 98.2 81 22 158/68 93 Room Air 02/09 2110 9 Room Air 02/09 2103 81 158/68 02/09 1427 98.3 82 20 138/66 92 Room Air
[2018-02-10] MEDS ORDERED: CIPRO500 M1 PO (14:42)
[2018-02-10] MEDS ORDERED: FLAGYL500 MG PO (14:42)
[2018-02-10 14:49] VITALS: BP 130/60
--- NOTE | 2018-02-10 15:53 | PN- Gastroenterology ---
Assessment/Plan GI Assessment/Recommendations: IMPRESSION: 1. Abnormal liver-associated enzymes. Decrease in AST/ALT from 316/147 to213/ 147. 2. Epigastric Pain -- likely reflective of mild gallstone pancreatitis. I have spoken with the surgical PA. I believe that Ms. Mohamud had mild gallstone pancreatitis. On ultrasound she had a CBD of 0.9, transaminases which briefly trended upwards and then downwards again. In addition her white blood cell count increased from 12 on admission to 16 with an increase in bands which has since decreased with the addition of antibiotics. She is still having some epigastric discomfort but is otherwise stable. Ms. Mohamud had an angioplasty many years ago and has had no cardiac issues since that time. She follows up regularly with her docking pilot and is being treated for only hypertension and hyperlipidemia. She has diabetes which is only complicated by neuropathy. RECOMMENDATIONS: 1. I have spoken to the manager medical affairs and asked that cardiology be called to give Ms. Mohamud medical clearance for a cholecystectomy. 2. I have left a message both with the surgical PA and with Dr. Vasquez's office for him to call me. 3. I have discussed with the surgical PA, but I believe Ms Mohamud should have a cholecystectomy during this admission. I am concerned that if she is discharged to home, she will be at risk for passing another gallstone, and may have another episode of gallstone pancreatitis which may be more severe. Further having demonstrated that she can pass gallstones through the common bile duct she is also at risk of developing cholangitis. 4. Given the likelihood that Ms. Mohamud had cholangitis, she will remain on IV antibiotics for another 48 hours. If discharged to home she should be discharged on Cipro and Flagyl with a follow up with Dr. Vasquez. ADDENDUM: I spoke with Dr. Vasquze who said, if Ms. Mohamud is still in the hospital next week, he will remove her gallbladder. His main concern was that she should be off Plavix for full 5 days. Subjective Subjective: Patient still has some residual upper abdominal soreness. After starting antibiotics, her WBC count has decreased from 16.0 to 12.6. She had had 8 bands. Objective Vital Signs and I&Os Vital Signs Date Time Temp Pulse Resp B/P B/P Pulse O2 O2 Flow FiO2 Mean Ox Delivery Rate 02/10 1449 98.9 70 20 130/60 92 Room Air 02/10 0900 78 140/68 02/10 0836 140/68 02/10 0836 78 140/68 02/10 0552 98.0 78 22 140/68 92 Room Air 02/09 2200 98.2 81 22 158/68 93 Room Air 02/09 2110 9 Room Air 02/09 2103 81 158/68 Intake & Output 02/10 1600 02/10 0400 02/09 1600 02/09 0400 02/08 1600 02/08 0400 Intake Total 1090 490 890 0 Output Total 200 100 250 Balance 1090 290 790 -250 Intake, IV 450 250 850 Intake, Oral 640 240 40 0 Number 1 0 Bowel Movements Output, Urine 200 100 250 Patient 198 lb 199 lb 177 lb Weight Weight Bed scale Bed scale Measurement Method Physical Exam General Appearance: alert, awake, comfortable Respiratory: normal breath sounds, lungs clear Cardiovascular: regular rate/rhythm, Normal S1 and S2, without rub, murmur or gallop Abdomen: normal bowel sounds, soft, Mild upper abdominal tenderness without rebound or guardig Neurologic/Psychiatric: awake, alert, oriented x 3 Skin: intact, normal color, warm/dry Current Medications: Current Medications Sig/Evan Start time Last Medication Dose Route Stop Time Status Admin Acetaminophen 650 MG Q6P PRN 02/08 2330 AC 02/09 PO 2103 Allopurinol 100 MG DAILY 02/09 09 AC 02/10 PO 0836 Amlodipine Besylate 10 MG DAILY 02/09 0900 AC 02/10 PO 0836 Ciprofloxacin 400 MG Q12 02/09 1409 AC 02/10 Dextrose/Water 200 ML IV 1009 Dextrose/Sodium 1,000 ML Q20H 02/09 0015 DC 02/09 Chloride IV 0036 Heparin Sodium 5,000 UNIT Q8 02/09 0600 AC (Porcine) SC Insulin Aspart 0 TIDAC 02/10 0800 AC 02/10 SC 1221 Insulin Human Regular 0 Q6 02/09 0001 DC 02/09 SC 1241 Levothyroxine Sodium 0.075 MG DAILY 02/09 0900 AC 02/10 PO 0834 Losartan Potassium 50 MG DAILY 02/09 0900 AC 02/10 PO 0900 Magnesium Oxide 400 MG DAILY 02/09 1552 AC 02/10 PO 0834 Metoprolol Tartrate 25 MG BID 02/09 0900 AC 02/10 PO 0836 Metronidazole 500 MG IQ8 02/09 1600 AC 02/10 N/A 1 UNIT IV 0837 Mirabegron 50 MG DAILY 02/09 0900 AC 02/10 PO 0834 Ondansetron HCl 4 MG Q6P PRN 02/08 2330 AC IV Rosuvastatin Calcium 20 MG DAILY 02/09 0900 AC 02/10 PO 0842 Results Pertinent Lab Results: Laboratory Tests 02/10 02/09 0630 0653 Chemistry Sodium (137 - 145 mmol/L) 137 137 Potassium (3.5 - 5.1 mmol/L) 3.6 4.0 Chloride (98 - 107 mmol/L) 104 102 Carbon Dioxide (22 - 30 mmol/L) 23 25 Anion Gap (5 - 16) 10 11 BUN (7 - 17 mg/dL) 18 H 21 H Creatinine (0.5 - 1.0 mg/dL) 1.3 H 1.4 H Estimated GFR (>60 ml/min) 39 L 36 L BUN/Creatinine Ratio (7 - 25 %) 13.8 15.0 Magnesium (1.6 - 2.3 mg/dL) 1.5 L Total Bilirubin (0.2 - 1.3 mg/dL) 1.2 1.1 Direct Bilirubin (< 0.4 mg/dL) 0.7 H 0.7 H AST (14 - 36 U/L) 213 H 316 H ALT (9 - 52 U/L) 139 H 147 H Alkaline Phosphatase (<127 U/L) 147 H 121 Total Protein (6.3 - 8.2 g/dL) 6.4 6.4 Albumin (3.5 - 5.0 g/dL) 3.5 3.6 Hematology CBC w Diff NO MAN DIFF REQ MAN DIFF ORDERED WBC (4.8 - 10.8 /CUMM) 12.6 H 16.0 H RBC (4.20 - 5.40 /CUMM) 3.85 L 3.71 L Hgb (12.0 - 16.0 G/DL) 10.5 L 10.1 L Hct (37 - 47 %) 31.5 L 30.3 L MCV (81.0 - 99.0 FL) 81.8 81.7 MCH (27.0 - 31.0 PG) 27.3 27.3 MCHC (33.0 - 37.0 G/DL) 33.4 33.5 RDW (11.5 - 14.5 %) 16.6 H 16.8 H Plt Count (130 - 400 /CUMM) 227 258 MPV (7.4 - 10.4 FL) 8.4 8.3 Gran % (42.2 - 75.2 %) 88.3 H 92.4 H Lymphocytes % (20.5 - 51.1 %) 3.9 L 3.4 L Monocytes % (1.7 - 9.3 %) 6.4 4.1 Eosinophils % (0 - 5 %) 1.2 0.1 Basophils % (0.0 - 2.0 %) 0.2 0 Absolute Granulocytes (1.4 - 6.5 /CUMM) 11.1 H 14.8 H Segmented Neutrophils (42.2 - 75.2 %) 85 H Band Neutrophils (0.0 - 5.0 %) 8 H Absolute Lymphocytes (1.2 - 3.4 /CUMM) 0.5 L 0.5 L Lymphocytes (20.5 - 51.1 %) 5 L Monocytes (1.7 - 9.3 %) 2 Absolute Monocytes (0.10 - 0.60 /CUMM) 0.8 H 0.7 H Absolute Eosinophils (0.0 - 0.7 /CUMM) 0.1 0 Absolute Basophils (0.0 - 0.2 /CUMM) 0 0 Platelet Estimate (ADEQUATE) VERIFIED BY SMEAR Normocytic RBCs VERIFIED Normochromic RBCs VERIFIED 02/09 02/08 0050 1750 Chemistry Sodium (137 - 145 mmol/L) 140 Potassium (3.5 - 5.1 mmol/L) 4.1 Chloride (98 - 107 mmol/L) 102 Carbon Dioxide (22 - 30 mmol/L) 24 Anion Gap (5 - 16) 14 BUN (7 - 17 mg/dL) 21 H Creatinine (0.5 - 1.0 mg/dL) 1.4 H Estimated GFR (>60 ml/min) 36 L BUN/Creatinine Ratio (7 - 25 %) 15.0 Glucose (65 - 99 mg/dL) 161 H Calcium (8.4 - 10.2 mg/dL) 9.6 Total Bilirubin (0.2 - 1.3 mg/dL) 0.9 AST (14 - 36 U/L) 102 H ALT (9 - 52 U/L) 41 Alkaline Phosphatase (<127 U/L) 120 Troponin I (< 0.11 ng/ml) < 0.01 < 0.01 Total Protein (6.3 - 8.2 g/dL) 7.8 Albumin (3.5 - 5.0 g/dL) 4.6 Globulin (1.9 - 4.2 gm/dL) 3.2 Albumin/Globulin Ratio (1.1 - 2.2 %) 1.4 Lipase (23 - 300 U/L) 384 H Hematology CBC w Diff NO MAN DIFF REQ WBC (4.8 - 10.8 /CUMM) 12.8 H RBC (4.20 - 5.40 /CUMM) 4.33 Hgb (12.0 - 16.0 G/DL) 11.8 L Hct (37 - 47 %) 35.3 L MCV (81.0 - 99.0 FL) 81.4 MCH (27.0 - 31.0 PG) 27.3 MCHC (33.0 - 37.0 G/DL) 33.5 RDW (11.5 - 14.5 %) 16.4 H Plt Count (130 - 400 /CUMM) 340 MPV (7.4 - 10.4 FL) 8.0 Gran % (42.2 - 75.2 %) 85.6 H Lymphocytes % (20.5 - 51.1 %) 9.6 L Monocytes % (1.7 - 9.3 %) 3.1 Eosinophils % (0 - 5 %) 1.3 Basophils % (0.0 - 2.0 %) 0.4 Absolute Granulocytes (1.4 - 6.5 /CUMM) 11.0 H Absolute Lymphocytes (1.2 - 3.4 /CUMM) 1.2 Absolute Monocytes (0.10 - 0.60 /CUMM) 0.4 Absolute Eosinophils (0.0 - 0.7 /CUMM) 0.2 Absolute Basophils (0.0 - 0.2 /CUMM) 0.1 Urines Urine Color (YEL,AMB,STR) YEL Urine Clarity (CLEAR) CLEAR Urine pH (5.0 - 8.0) 5.5 Ur Specific Breeding (1.001 - 1.035) >= 1.030 Urine Protein (NEG,<30 MG/DL) 100 H Urine Ketones (NEG) NEG Urine Nitrite (NEG) POS H Urine Bilirubin (NEG) NEG Urine Urobilinogen (0.1 - 1.0 EU/dl) 1.0 Ur Leukocyte Esterase (NEG) MOD H Ur Microscopic SEDIMENT EXAMINED Urine RBC (0 - 5 /HPF) 1-3 Urine WBC (0 - 2 /HPF) 25-50 H Ur Epithelial Cells (NONE,FEW) FEW Urine Bacteria (NEG/NONE) MANY H Urine Hemoglobin (NEG) SMALL H Urine Glucose (N MG/DL) NEG Urine Comment A
[2018-02-10 21:38] VITALS: BP 150/58
[2018-02-11 06:00] VITALS: BP 144/72
--- NOTE | 2018-02-11 07:18 | PN- Housestaff ---
Subjective Follow-up For: Abdominal pain Subjective: Overnight patient was in normal sinus rhythm heart rate ranging between 71-89. Patient has no complaint of this morning, states she is tolerating her diet denies nausea, vomiting, and abdominal pain. Patient states she had her last bowel movement yesterday which was normal for her. Review of Systems Constitutional: Denies: chills, diaphoresis, fever. Cardiovascular: Denies: chest pain, palpitations. Respiratory: Denies: cough, short of breath. Gastrointestinal: Denies: abdominal pain, constipation, diarrhea, bowel incontinence. Objective Last 24 Hrs of Vital Signs/I&O Vital Signs Date Time Temp Pulse Resp B/P B/P Pulse O2 O2 Flow FiO2 Mean Ox Delivery Rate 02/11 1458 98.6 68 20 138/60 97 Room Air 02/11 0811 74 144/72 02/11 0811 74 144/72 02/11 0810 74 144/72 02/11 0600 98.4 70 20 144/72 95 Room Air 02/10 2138 98.8 80 20 150/58 94 Room Air 02/10 2052 80 150/58 Intake & Output 02/11 1600 02/11 0800 02/11 0000 Intake Total 600 240 720 Output Total Balance 600 240 720 Intake, IV 120 Intake, Oral 480 240 720 Physical Exam General Appearance: Alert, Oriented X3, Cooperative Skin: No Rashes Cardiovascular: Regular Rate, Normal S1, Normal S2 Lungs: Clear to Auscultation, Normal Air Movement Abdomen: Normal Bowel Sounds, Soft, No Tenderness Extremities: No Cyanosis, No Edema, Normal Pulses Current Medications: Current Medications Sig/Evan Start time Last Medication Dose Route Stop Time Status Admin Acetaminophen 650 MG Q6P PRN 02/08 2330 AC 02/09 PO 2103 Allopurinol 100 MG DAILY 02/09 09 AC 02/11 PO 0810 Amlodipine Besylate 10 MG DAILY 02/09 0900 AC 02/11 PO 0811 Ceftriaxone Sodium 1,000 MG DAILY 02/10 1655 AC 02/11 IV 0810 Ciprofloxacin 400 MG Q12 02/09 1409 DC 02/10 Dextrose/Water 200 ML IV 1009 Heparin Sodium 5,000 UNIT Q8 02/09 0600 AC (Porcine) SC Insulin Aspart 0 TIDAC 02/10 08 AC 02/11 SC 1249 Levothyroxine Sodium 0.075 MG DAILY 02/09 0900 AC 02/11 PO 0810 Losartan Potassium 50 MG DAILY 02/09 0900 AC 02/11 PO 0811 Magnesium Oxide 400 MG DAILY 02/09 1552 AC 02/11 PO 0811 Metoprolol Tartrate 25 MG BID 02/09 09 AC 02/11 PO 0810 Metronidazole 500 MG IQ8 02/09 1600 AC 02/11 N/A 1 UNIT IV 0810 Mirabegron 50 MG DAILY 02/09 09 AC 02/11 PO 0811 Ondansetron HCl 4 MG Q6P PRN 02/08 2330 AC IV Rosuvastatin Calcium 20 MG DAILY 02/09 0900 AC 02/11 PO 0812 Assessment/Plan Assessment: 82 y/o F with PMH of gout, hypothyroidism, uterine cancer s/p hysterectomy, HTN, HLD, DM, CAD s/p PCI and stents on ASA/Plavix presented with acute onset sudden abdominal pain. ASSESSMENT 1. Cholecystitis 2. Cholelithiasis 3. History of coronary artery disease s/p PCI 4. History of hypertension 5. History of diabetes 6. History of hypothyroidism 7. History of gout 8. History of Overactive bladder #Cholangtits: on presentation had epigastric pain along with nausea, vomiting and decreased appetite. CT scan on 02/08/2018 showed gallstones, CBD diameter of 1.2 cm and nonobstructive right renal stone. Pt had leukocytosis with bandemia, worsening LFT. Now both on a decreasing trend. GI has been following and strongly recommended surgical intervention for the patient. She has been off Plavix for 3 days. HIDA scan did rule out acute cholecystitis. -F/u liver enzymes #Cholelithiasis: On presentation based patient had biliary colic, during hospitalization patient most likely has passed a biliary stone which has led to improvement in patient's physical symptoms. -Patient is tentatively scheduled to have cholecystectomy on Wednesday on 2017 -Continue to hold Plavix can resume after surgery. Last dose of Plavix was on -Cleared by cardiology on 02/11/2018 for the surgery #History Of CAD s/p PCI: -Holding Plavix and aspirin until surgery will resume on postop day 1 #Hypertension #Diabetes -NovoLog low-dose sliding scale #Hypothyroidism #Gout -Continue allopurinol at home dose #Overactive bladder -Continue mirabegron DVT prophylaxis: Subcu heparin and ALPS Diet: Consistent carb 2 CODE STATUS: Full code Problem List: 1. Cholecystitis Pain Ratin Pain Location: n/a Pain Goal: Remain pain free Pain Plan: tylenol Tomorrow's Labs & Rationales: cbc, bep
--- NOTE | 2018-02-11 07:31 | Patient Discharge Instructions ---
Acute Coronary Syndrome Inclusion Criteria At DC or during hospital stay patient has or had the following: Discharge Core Measures Meds if any: Prescribed or Continued at Discharge Meds if any: NOT Prescribed or Continued at Discharge Congestive Heart Failure Inclusion Criteria At DC or during hospital stay patient has or had the following: Discharge Core Measures Meds if any: Prescribed or Continued at Discharge Meds if any: NOT Prescribed or Continued at Discharge Cerebrovascular accident Inclusion Criteria At DC or during hospital stay patient has or had the following: CVA/TIA Diagnosis No Discharge Core Measures Meds if any: Prescribed or Continued at Discharge Meds if any: NOT Prescribed or Continued at Discharge Venous thromboembolism Discharge Core Measures - Per Current guidelines, there needs to be overlap - treatment for the first 5 days of Warfarin therapy. - If discharged on Warfarin prior to 5 days of - overlap therapy, the patient will need to be - assessed for post discharge needs including - *Post discharge parental anticoagulation - *Warfarin and/or parental anticoagulation education - *Follow up date to check INR post discharge Meds if any: Prescribed or Continued at Discharge Note: Overlap Therapy is Warfarin and Anticoagulant Meds if any: NOT Prescribed or Continued at Discharge
[2018-02-11 09:19] LABS: ABSOLUTE BASOPHIL COUNT 0 /CUMM (0.0-0.2); ABSOLUTE EOSINOPHIL COUNT 0.2 /CUMM (0.0-0.7); ABSOLUTE GRANULOCYTE CT 7.1 /CUMM (1.4-6.5); ABSOLUTE LYMPH COUNT 0.7 /CUMM (1.2-3.4); ABSOLUTE MONOCYTE COUNT 0.7 /CUMM (0.10-0.60); BASOPHIL % 0.4 % (0.0-2.0); EOSINOPHIL % 2.1 % (0-5); GRANULOCYTE % 81.6 % (42.2-75.2); HEMATOCRIT 31.7 % (37-47); MEAN CORPUSCULAR HGB 27.5 PG (27.0-31.0); MEAN CORPUSCULAR HGB CONC 33.9 G/DL (33.0-37.0); MEAN CORPUSCULAR VOLUME 80.9 FL (81.0-99.0); MEAN PLATELET VOLUME 8.6 FL (7.4-10.4); PLATELET COUNT 241 /CUMM (130-400); RBC DISTRIBUTION WIDTH 16.7 % (11.5-14.5); RED BLOOD CELL CT 3.92 /CUMM (4.20-5.40); WHITE BLOOD CELL COUNT 8.8 /CUMM (4.8-10.8)
--- NOTE | 2018-02-11 09:49 | Cons- Cardiology ---
General Information and HPI Consulting Request Date of Consult: 02/11/18 Requested By: Kamar Flowers MD History of Present Illness: 82 y/o F with PMH of gout, hypothyroidism, uterine cancer s/p hysterectomy, HTN, HLD, DM, CAD s/p PCI and stents on ASA/Plavix presented with acute onset sudden abdominal pain. Dx of cholangitis, treated with IV antibiotics while awaiting surgery. Denies chest pains, denies palpitations, denies dyspnea, denies orthopnea, denies history of bleeding. Allergies/Medications Allergies: Coded Allergies: Penicillins (HIVES 02/08/18) codeine (N/V 02/08/18) Home Med List: Allopurinol 100 MG TABLET 1 TAB PO DAILY GOUT (Reported) Amlodipine Besylate (Norvasc) 10 MG TABLET 1 TAB PO DAILY HTN (Reported) Aspirin (Ecotrin*) 81 MG TABLET.DR 1 TAB PO DAILY HEART/BLOOD (Reported) Cholecalciferol (Vitamin D3) (Vitamin D) 2,000 UNIT CAPSULE 1 CAP PO DAILY SUPPLEMENT (Reported) Ciprofloxacin HCl (Cipro) 500 MG TABLET 1 TAB PO BID GI Clopidogrel Bisulfate (Plavix) 75 MG TABLET 1 TAB PO DAILY CAD (Reported) Levothyroxine Sodium 75 MCG TABLET 1 TAB PO DAILY THYROID (Reported) Metoprolol Tartrate 25 MG TABLET 1 TAB PO BID HEART/BP (Reported) Metronidazole (Flagyl) 500 MG TABLET 1 TAB PO Q8 GI Mirabegron (Myrbetriq) 50 MG TAB.ER.24H 1 TAB PO DAILY BLADDER (Reported) Rosuvastatin Calcium (Crestor) 20 MG TABLET 1 TAB PO DAILY CHOLESTEROL ( Reported) Sitagliptin Phos/Metformin HCl (Janumet 50-1,000 MG Tablet) 50 MG-1,000 MG TABLET 1 TAB PO BID DM (Reported) Ubidecarenone (Co Q-10) 200 MG CAPSULE 1 CAP PO DAILY SUPPLEMENT (Reported) Valsartan (Diovan) 160 MG TABLET 1 TAB PO DAILY BP (Reported) Current Medications: Current Medications Sig/Evan Start time Last Medication Dose Route Stop Time Status Admin Acetaminophen 650 MG Q6P PRN 02/08 2330 AC 02/09 PO 2103 Allopurinol 100 MG DAILY 02/09 0900 AC 02/11 PO 0810 Amlodipine Besylate 10 MG DAILY 02/09 0900 AC 02/11 PO 0811 Ceftriaxone Sodium 1,000 MG DAILY 02/10 1655 AC 02/11 IV 0810 Ciprofloxacin 400 MG Q12 02/09 1409 DC 02/10 Dextrose/Water 200 ML IV 1009 Heparin Sodium 5,000 UNIT Q8 02/09 0600 AC (Porcine) SC Insulin Aspart 0 TIDAC 02/10 0800 AC 02/11 SC 0812 Levothyroxine Sodium 0.075 MG DAILY 02/09 0900 AC 02/11 PO 0810 Losartan Potassium 50 MG DAILY 02/09 09 AC 02/11 PO 0811 Magnesium Oxide 400 MG DAILY 02/09 1552 AC 02/11 PO 0811 Metoprolol Tartrate 25 MG BID 02/09 09 AC 02/11 PO 0810 Metronidazole 500 MG IQ8 02/09 1600 AC 02/11 N/A 1 UNIT IV 0810 Mirabegron 50 MG DAILY 02/09 09 AC 02/11 PO 0811 Ondansetron HCl 4 MG Q6P PRN 02/08 2330 AC IV Rosuvastatin Calcium 20 MG DAILY 02/09 09 AC 02/11 PO 0812 Past History Travel History Traveled to [place] past 21 day No Medical History Blood Transfusion Hx: No Neurological: NONE EENT: NONE Cardiovascular: CAD, hypertension, hyperlipidemia Respiratory: NONE Gastrointestinal: NONE Hepatic: NONE Renal: urinary incontinence Musculoskeletal: gout Psychiatric: NONE Endocrine: diabetes, hypothyroidism, GOUT Blood Disorders: NONE Cancer(s): endometrial cancer 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 Home Services at Home: None Primary Language: Croatian Smoking Status: Never Smoked ETOH Use: denies use Illicit Drug Use: denies illicit drug use Functional Ability ADLs Independent: dressing, eating, toileting, bathing. Ambulation: independent IADLs Independent: shopping, housework, finances, food prep, telephone, transportation , medication admin. Employment History Employment: Retired Profession/Employer [employer] Exam & Diagnostic Data Vital Signs and I&O Vital Signs Date Time Temp Pulse Resp B/P B/P Pulse O2 O2 Flow FiO2 Mean Ox Delivery Rate 02/11 0811 74 144/72 02/11 0811 74 144/72 02/11 0810 74 144/72 02/11 0600 98.4 70 20 144/72 95 Room Air 02/10 2138 98.8 80 20 150/58 94 Room Air 02/10 2052 80 150/58 02/10 1449 98.9 70 20 130/60 92 Room Air Intake & Output 02/11 0802/11 0000 02/10 1600 02/10 0802/10 0000 Intake Total 240 720 750 340 490 Output Total 200 Balance 240 720 750 140 490 Intake, IV 350 100 250 Intake, Oral 240 720 400 240 240 Number 1 0 Bowel Movements Output, Urine 200 Patient 198 lb 198 lb 199 lb Weight Weight Bed scale Measurement Method Physical Exam: General Appearance: Alert, Oriented X3, Cooperative, No Acute Distress HEENT: Atraumatic, EOMI Neck: Supple, trachea midline, no JVD Cardiovascular: Regular Rate, Normal S1, Normal S2, No Murmurs, no rub Lungs: Clear to Auscultation, Normal Air Movement Abdomen: Normal Bowel Sounds, Soft, tender on deep palpation diffusely across the abdomen. Neurological: Normal Speech, no focal motor or sensory deficit. Extremities: good capillary refill, No Cyanosis, No Edema Labs/Tayo Results: Laboratory Tests 02/11 02/10 0830 0630 Chemistry Sodium (137 - 145 mmol/L) Pending 137 Potassium (3.5 - 5.1 mmol/L) Pending 3.6 Chloride (98 - 107 mmol/L) Pending 104 Carbon Dioxide (22 - 30 mmol/L) Pending 23 Anion Gap (5 - 16) Pending 10 BUN (7 - 17 mg/dL) Pending 18 H Creatinine (0.5 - 1.0 mg/dL) Pending 1.3 H Estimated GFR (>60 ml/min) 39 L BUN/Creatinine Ratio (7 - 25 %) Pending 13.8 Total Bilirubin (0.2 - 1.3 mg/dL) 1.2 Direct Bilirubin (< 0.4 mg/dL) 0.7 H AST (14 - 36 U/L) 213 H ALT (9 - 52 U/L) 139 H Alkaline Phosphatase (<127 U/L) 147 H Total Protein (6.3 - 8.2 g/dL) 6.4 Albumin (3.5 - 5.0 g/dL) 3.5 Hematology CBC w Diff NO MAN DIFF REQ NO MAN DIFF REQ WBC (4.8 - 10.8 /CUMM) 8.8 12.6 H RBC (4.20 - 5.40 /CUMM) 3.92 L 3.85 L Hgb (12.0 - 16.0 G/DL) 10.8 L 10.5 L Hct (37 - 47 %) 31.7 L 31.5 L MCV (81.0 - 99.0 FL) 80.9 L 81.8 MCH (27.0 - 31.0 PG) 27.5 27.3 MCHC (33.0 - 37.0 G/DL) 33.9 33.4 RDW (11.5 - 14.5 %) 16.7 H 16.6 H Plt Count (130 - 400 /CUMM) 241 227 MPV (7.4 - 10.4 FL) 8.6 8.4 Gran % (42.2 - 75.2 %) 81.6 H 88.3 H Lymphocytes % (20.5 - 51.1 %) 8.3 L 3.9 L Monocytes % (1.7 - 9.3 %) 7.6 6.4 Eosinophils % (0 - 5 %) 2.1 1.2 Basophils % (0.0 - 2.0 %) 0.4 0.2 Absolute Granulocytes (1.4 - 6.5 /CUMM) 7.1 H 11.1 H Absolute Lymphocytes (1.2 - 3.4 /CUMM) 0.7 L 0.5 L Absolute Monocytes (0.10 - 0.60 /CUMM) 0.7 H 0.8 H Absolute Eosinophils (0.0 - 0.7 /CUMM) 0.2 0.1 Absolute Basophils (0.0 - 0.2 /CUMM) 0 0 Assessment/Plan Assessment/Plan Cholelithiasis on IV antibiotics awaiting cholecystectomy. Patient with CAD s/p PCI in 2014, on plavix and ASA. Stop Plavix 5 days prior to OR. If Dr Vasquez is comfortable maintaining ASA, i would keep it, otherwise it could be resumed post op day 1. Consult Acknowledgment - Thank you for your consult request.
--- NOTE | 2018-02-11 11:05 | PN- Att Addend ---
Attending Addendum Attending Brief Note Patient sitting in the chair in no acute distress. Appreciate GI and surgical inputs and recommendations. Patient will be treated medically and cleared by cardiology and eventually in the next few days have her surgery Vital signs are stable no fever. Her white count is 8800 today. No major changes on physical. Intake & Output 02/11 1600 02/11 0400 02/10 1600 02/10 0400 02/09 1600 02/09 0400 Intake Total 096 442 7864 490 890 0 Output Total 200 100 250 Balance 138 817 2881 290 790 -250 Intake, IV 450 250 850 Intake, Oral 240 720 640 240 40 0 Number 1 0 Bowel Movements Output, Urine 200 100 250 Patient 198 lb 199 lb 177 lb Weight Weight Bed scale Bed scale Measurement Method Current Medications Sig/Evan Start time Last Medication Dose Route Stop Time Status Admin Acetaminophen 650 MG Q6P PRN 02/08 2330 AC 02/09 PO 2103 Allopurinol 100 MG DAILY 02/09 09 AC 02/11 PO 0810 Amlodipine Besylate 10 MG DAILY 02/09 09 AC 02/11 PO 0811 Ceftriaxone Sodium 1,000 MG DAILY 02/10 1655 AC 02/11 IV 0810 Ciprofloxacin 400 MG Q12 02/09 1409 DC 02/10 Dextrose/Water 200 ML IV 1009 Heparin Sodium 5,000 UNIT Q8 02/09 0600 AC (Porcine) SC Insulin Aspart 0 TIDAC 02/10 08 AC 02/11 SC 0812 Levothyroxine Sodium 0.075 MG DAILY 02/09 0900 AC 02/11 PO 0810 Losartan Potassium 50 MG DAILY 02/09 09 AC 02/11 PO 0811 Magnesium Oxide 400 MG DAILY 02/09 1552 AC 02/11 PO 0811 Metoprolol Tartrate 25 MG BID 02/09 09 AC 02/11 PO 0810 Metronidazole 500 MG IQ8 02/09 1600 AC 02/11 N/A 1 UNIT IV 0810 Mirabegron 50 MG DAILY 02/09 09 AC 02/11 PO 0811 Ondansetron HCl 4 MG Q6P PRN 02/08 2330 AC IV Rosuvastatin Calcium 20 MG DAILY 02/09 09 AC 02/11 PO 0812 Laboratory Tests 02/11/18 0830: Anion Gap 12, Estimated GFR 36 L, BUN/Creatinine Ratio 12.1, CBC w Diff NO MAN DIFF REQ, RBC 3.92 L, MCV 80.9 L, MCH 27.5, MCHC 33.9, RDW 16.7 H, MPV 8.6, Gran % 81.6 H, Lymphocytes % 8.3 L, Monocytes % 7.6, Eosinophils % 2.1, Basophils % 0.4, Absolute Granulocytes 7.1 H, Absolute Lymphocytes 0.7 L, Absolute Monocytes 0.7 H, Absolute Eosinophils 0.2, Absolute Basophils 0 02/10/18 0630: Anion Gap 10, Estimated GFR 39 L, BUN/Creatinine Ratio 13.8, Total Bilirubin 1.2, Direct Bilirubin 0.7 H, AST 213 H, ALT 139 H, Alkaline Phosphatase 147 H, Total Protein 6.4, Albumin 3.5, CBC w Diff NO MAN DIFF REQ, RBC 3.85 L, MCV 81.8, MCH 27.3, MCHC 33.4, RDW 16.6 H, MPV 8.4, Gran % 88.3 H, Lymphocytes % 3.9 L, Monocytes % 6.4, Eosinophils % 1.2, Basophils % 0.2, Absolute Granulocytes 11.1 H, Absolute Lymphocytes 0.5 L, Absolute Monocytes 0.8 H, Absolute Eosinophils 0.1, Absolute Basophils 0 02/09/18 0653: Anion Gap 11, Estimated GFR 36 L, BUN/Creatinine Ratio 15.0, Magnesium 1.5 L, Total Bilirubin 1.1, Direct Bilirubin 0.7 H, AST 316 H, ALT 147 H, Alkaline Phosphatase 121, Total Protein 6.4, Albumin 3.6, CBC w Diff MAN DIFF ORDERED, RBC 3.71 L, MCV 81.7, MCH 27.3, MCHC 33.5, RDW 16.8 H, MPV 8.3, Gran % 92.4 H , Lymphocytes % 3.4 L, Monocytes % 4.1, Eosinophils % 0.1, Basophils % 0, Absolute Granulocytes 14.8 H, Segmented Neutrophils 85 H, Band Neutrophils 8 H, Absolute Lymphocytes 0.5 L, Lymphocytes 5 L, Monocytes 2, Absolute Monocytes 0.7 H, Absolute Eosinophils 0, Absolute Basophils 0, Platelet Estimate VERIFIED BY SMEAR, Normocytic RBCs VERIFIED, Normochromic RBCs VERIFIED 02/09/18 0050: Troponin I < 0.01 02/08/18 1750: Anion Gap 14, Estimated GFR 36 L, BUN/Creatinine Ratio 15.0, Glucose 161 H, Calcium 9.6, Total Bilirubin 0.9, AST 102 H, ALT 41, Alkaline Phosphatase 120, Troponin I < 0.01, Total Protein 7.8, Albumin 4.6, Globulin 3.2, Albumin/ Globulin Ratio 1.4, Lipase 384 H, CBC w Diff NO MAN DIFF REQ, RBC 4.33, MCV 81.4, MCH 27.3, MCHC 33.5, RDW 16.4 H, MPV 8.0, Gran % 85.6 H, Lymphocytes % 9.6 L, Monocytes % 3.1, Eosinophils % 1.3, Basophils % 0.4, Absolute Granulocytes 11.0 H, Absolute Lymphocytes 1.2, Absolute Monocytes 0.4, Absolute Eosinophils 0.2, Absolute Basophils 0.1, Urine Color YEL, Urine Clarity CLEAR, Urine pH 5.5, Ur Specific Alvo >= 1.030, Urine Protein 100 H, Urine Ketones NEG, Urine Nitrite POS H, Urine Bilirubin NEG, Urine Urobilinogen 1.0, Ur Leukocyte Esterase MOD H, Ur Microscopic SEDIMENT EXAMINED, Urine RBC 1-3, Urine WBC 25-50 H, Ur Epithelial Cells FEW, Urine Bacteria MANY H, Urine Hemoglobin SMALL H, Urine Glucose NEG, Urine Comment A Microbiology 02/09 1825 BLOOD: Blood Culture - RES 02/09 1357 BLOOD: Blood Culture - CAN Cancelled: SPECIMEN NOT RECEIVED. 02/09 246 URINE ROUT: Urine Culture - RES GRAM NEGATIVE RODS 02/08 1914 URINE ROUT: Urine Culture - CAN Cancelled: Cancelled via OE: Error Microbiology 02/09 1825 BLOOD: Blood Culture - RES 02/09 1357 BLOOD: Blood Culture - CAN Cancelled: SPECIMEN NOT RECEIVED. 02/09 246 URINE ROUT: Urine Culture - RES GRAM NEGATIVE RODS 02/08 1914 URINE ROUT: Urine Culture - CAN Cancelled: Cancelled via OE: Error Vital Signs Date Time Temp Pulse Resp B/P B/P Pulse O2 O2 Flow FiO2 Mean Ox Delivery Rate 02/11 0811 74 144/72 02/11 0811 74 144/72 02/11 0810 74 14402/11 0600 98.4 70 20 144/72 95 Room Air 02/10 2138 98.8 80 20 150/58 94 Room Air 02/102 80 150/58 02/10 1449 98.9 70 20 130/60 92 Room Air
[2018-02-11 14:58] VITALS: BP 138/60
[2018-02-11 22:10] VITALS: BP 146/60
[2018-02-12 06:28] VITALS: BP 132/58
--- NOTE | 2018-02-12 07:36 | PN- Housestaff ---
See Addendum Subjective Follow-up For: Abdominal pain Subjective: Afebrile overnight. Patient is seen and examined in bed. Patient denies any acute events overnight. Patient states this morning her abdominal soreness is gone and only has a bit of anxiety of when her procedure will take place. Patient notified her cholecystectomy is scheduled for this upcoming Wednesday. Patient states she has not had any recent n/v, diarrhea, constipation, and abdominal pain. Patient states she has noticed decreased appetite but recently has been eating well. Patient is ambulating well by herself as well. Patient otherwise denies any fever, chills, fatigue, and chest pain. Review of Systems Constitutional: Reports: see HPI. Objective Last 24 Hrs of Vital Signs/I&O Vital Signs Date Time Temp Pulse Resp B/P B/P Pulse O2 O2 Flow FiO2 Mean Ox Delivery Rate 02/12 0628 99.5 74 26 132/58 92 02/11 2333 85 146/60 02/11 2210 99.0 85 17 146/60 96 Room Air 02/11 1458 98.6 68 20 138/60 97 Room Air Intake & Output 02/12 1600 02/12 0800 02/12 0000 Intake Total 480 400 Output Total Balance 480 400 Intake, IV 0 Intake, Oral 480 400 Number 0 Bowel Movements Patient 198 lb Weight Physical Exam General Appearance: Alert, Oriented X3, Cooperative, No Acute Distress Skin: No Rashes, No Breakdown HEENT: Atraumatic Neck: Supple, No JVD Cardiovascular: Regular Rate, Normal S1, Normal S2 Lungs: Clear to Auscultation Abdomen: Soft, No Tenderness Extremities: No Edema, Normal Pulses Assessment/Plan Assessment: 82 y/o F with PMH of gout, hypothyroidism, uterine cancer s/p hysterectomy, HTN, HLD, DM, CAD s/p PCI and stents on ASA/Plavix presented with acute onset sudden abdominal pain. ASSESSMENT 1. Cholecystitis 2. Cholelithiasis 3. History of coronary artery disease s/p PCI 4. History of hypertension 5. History of diabetes 6. History of hypothyroidism 7. History of gout 8. History of Overactive bladder #Cholangtits: on presentation had epigastric pain along with nausea, vomiting and decreased appetite. CT scan on 02/08/2018 showed gallstones, CBD diameter of 1.2 cm and nonobstructive right renal stone. Pt had leukocytosis with bandemia, worsening LFT. Now both on a decreasing trend. GI has been following and strongly recommended surgical intervention for the patient. She has been off Plavix for 3 days. HIDA scan did rule out acute cholecystitis. -F/u liver enzymes #Cholelithiasis: On presentation based patient had biliary colic, during hospitalization patient most likely has passed a biliary stone which has led to improvement in patient's physical symptoms. -Patient is tentatively scheduled to have cholecystectomy on Wednesday on 2017 -Continue to hold Plavix can resume after surgery. Last dose of Plavix was on -Cleared by cardiology on 02/11/2018 for the surgery #History Of CAD s/p PCI: -Holding Plavix and aspirin until surgery will resume on postop day 1 #Hypertension #Diabetes -NovoLog low-dose sliding scale #Hypothyroidism #Gout -Continue allopurinol at home dose #Overactive bladder -Continue mirabegron DVT prophylaxis: Subcu heparin and ALPS Diet: Consistent carb 2 CODE STATUS: Full code Problem List: 1. Cholecystitis Pain Ratin Pain Location: na Pain Goal: Remain pain free Pain Plan: na Tomorrow's Labs & Rationales: routine
[2018-02-12 08:32] LABS: ABSOLUTE BASOPHIL COUNT 0 /CUMM (0.0-0.2); ABSOLUTE EOSINOPHIL COUNT 0.3 /CUMM (0.0-0.7); ABSOLUTE GRANULOCYTE CT 5.8 /CUMM (1.4-6.5); ABSOLUTE LYMPH COUNT 1.1 /CUMM (1.2-3.4); BASOPHIL % 0.5 % (0.0-2.0); EOSINOPHIL % 3.4 % (0-5); HEMATOCRIT 30.5 % (37-47); MEAN CORPUSCULAR HGB 27.2 PG (27.0-31.0); MEAN CORPUSCULAR HGB CONC 33.3 G/DL (33.0-37.0); MEAN CORPUSCULAR VOLUME 81.7 FL (81.0-99.0); MEAN PLATELET VOLUME 8.5 FL (7.4-10.4); PLATELET COUNT 269 /CUMM (130-400); RED BLOOD CELL CT 3.73 /CUMM (4.20-5.40); WHITE BLOOD CELL COUNT 8.1 /CUMM (4.8-10.8)
[2018-02-12 15:07] VITALS: BP 123/63
[2018-02-12 21:15] VITALS: BP 132/66
[2018-02-13 06:33] VITALS: BP 146/64
--- NOTE | 2018-02-13 07:58 | PN- Housestaff ---
Subjective Follow-up For: Abdominal pain Subjective: I visited and examined the patient, she was sitting in her chair next to her bed , alert and oriented 3, in no acute distress. She did not complain of any abdominal pain, no reports of major complaints by the nurse overnight. She denies any headache, lightheadedness, dizziness, chest pain, chest pressure, shortness of breath, abdominal pain, constipation, diarrhea, dysuria, frequency, fever, chills, or sweating. Review of Systems Constitutional: Reports: see HPI. Objective Last 24 Hrs of Vital Signs/I&O Vital Signs Date Time Temp Pulse Resp B/P B/P Pulse O2 O2 Flow FiO2 Mean Ox Delivery Rate 02/13 0633 98.3 70 26 146/64 96 02/13 0000 Room Air 02/12 2115 98.0 63 18 132/66 100 Room Air 02/12 2112 63 132/66 02/12 1507 97.8 58 18 123/63 98 Room Air Intake & Output 02/13 1600 02/13 0800 02/13 0000 Intake Total 600 360 Output Total Balance 600 360 Intake, IV 120 120 Intake, Oral 480 240 Number 0 0 Bowel Movements Physical Exam General Appearance: Alert, Oriented X3, Cooperative, No Acute Distress Skin: No Rashes Skin Temp/Moisture Exam: Warm/Dry HEENT: Atraumatic Cardiovascular: Regular Rate, Normal S1, Normal S2 Lungs: Clear to Auscultation, Normal Air Movement Abdomen: Normal Bowel Sounds, Soft, No Tenderness Vascular: Normal Pulses, Pulses Symmetrical Assessment/Plan Assessment: 82 y/o F with PMH of gout, hypothyroidism, uterine cancer s/p hysterectomy, HTN, HLD, DM, CAD s/p PCI and stents on ASA/Plavix presented with acute onset sudden abdominal pain. He will be off anticoagulant until Wednesday, and we will go to OR on Wednesday. ASSESSMENT 1. Cholecystitis 2. Cholelithiasis 3. History of coronary artery disease s/p PCI 4. History of hypertension 5. History of diabetes 6. History of hypothyroidism 7. History of gout 8. History of Overactive bladder #Cholangtits: on presentation had epigastric pain along with nausea, vomiting and decreased appetite. CT scan on 02/08/2018 showed gallstones, CBD diameter of 1.2 cm and nonobstructive right renal stone. Pt had leukocytosis with bandemia, worsening LFT. Now both on a decreasing trend. GI has been following and strongly recommended surgical intervention for the patient. She has been off Plavix for 3 days. HIDA scan did rule out acute cholecystitis. -F/u liver enzymes #Cholelithiasis: On presentation based patient had biliary colic, during hospitalization patient most likely has passed a biliary stone which has led to improvement in patient's physical symptoms. -Patient is tentatively scheduled to have cholecystectomy on Wednesday on 2017 -Continue to hold Plavix can resume after surgery. Last dose of Plavix was on -Cleared by cardiology on 02/11/2018 for the surgery #History Of CAD s/p PCI: -Holding Plavix and aspirin until surgery will resume on postop day 1 #Hypertension #Diabetes -NovoLog low-dose sliding scale #Hypothyroidism #Gout -Continue allopurinol at home dose #Overactive bladder -Continue mirabegron DVT prophylaxis: Subcu heparin and ALPS Diet: Consistent carb 2 CODE STATUS: Full code Problem List: 1. Cholecystitis Pain Ratin Pain Location: Abdominal pain, the patient did not have any pain at the time of physical exam Pain Goal: Remain pain free Pain Plan: Pain medication as needed Tomorrow's Labs & Rationales: As indicated
[2018-02-13 08:34] LABS: ABSOLUTE BASOPHIL COUNT 0 /CUMM (0.0-0.2); ABSOLUTE EOSINOPHIL COUNT 0.4 /CUMM (0.0-0.7); ABSOLUTE GRANULOCYTE CT 4.8 /CUMM (1.4-6.5); ABSOLUTE LYMPH COUNT 1.3 /CUMM (1.2-3.4); ABSOLUTE MONOCYTE COUNT 0.9 /CUMM (0.10-0.60); BASOPHIL % 0.3 % (0.0-2.0); EOSINOPHIL % 5.3 % (0-5); GRANULOCYTE % 64.6 % (42.2-75.2); MEAN CORPUSCULAR HGB 27.3 PG (27.0-31.0); MEAN CORPUSCULAR HGB CONC 33.4 G/DL (33.0-37.0); MEAN CORPUSCULAR VOLUME 81.7 FL (81.0-99.0); MEAN PLATELET VOLUME 8.3 FL (7.4-10.4); PLATELET COUNT 285 /CUMM (130-400); RBC DISTRIBUTION WIDTH 16.6 % (11.5-14.5); RED BLOOD CELL CT 4.03 /CUMM (4.20-5.40); WHITE BLOOD CELL COUNT 7.4 /CUMM (4.8-10.8)
--- NOTE | 2018-02-13 12:44 | PN- Att Addend ---
Attending Addendum Attending Brief Note Mrs. Mohamud was interviewed and examined. Her EMR was reviewed. She is feeling well today. She continues to tolerate p.o. intake. She denies fever, chills, abdominal pain, diarrhea, and nausea and vomiting. She has remained afebrile over the last 24 hours. Her vital signs are stable. She is in no acute distress. Chest exam is clear with equal breath sounds. Heart exam reveals regular rate and rhythm. Her abdomen is soft and nontender. CBCs essentially unchanged with normal WBC. Her electrolytes are stable as is her renal function. We are continuing to treat her cholecystitis with ceftriaxone and metronidazole. We are continuing her other maintenance medications. She is scheduled for the OR on February 15.
--- NOTE | 2018-02-13 13:30 | PN- General Surgery ---
Surgical Brief Attending Note Brief Attending Note: Patient remains in the hospital as per medical team. Has been off Plavix. No complaints, tolerating diet. Since she remains in the hospital will plan for Lap Lena on Wednesday. D/W patient, nursing, and medical team.
[2018-02-13 14:40] VITALS: BP 132/58
[2018-02-13 21:26] VITALS: BP 144/64
[2018-02-14 06:32] VITALS: BP 126/70
--- NOTE | 2018-02-14 07:54 | PN- Housestaff ---
Subjective Follow-up For: Abdominal pain Subjective: Afebrile overnight. Patient is seen and examined in sitting up in chair. Patient states her abdominal pain has subsided and is awaiting her cholecystectomy scheduled for tomorrow. Patient states she has been eating well without any difficulty passing her bowels. Patient otherwise denies any diarrhea, chest pain , shortness of breath, abdominal pain, n/v, and dizziness. Review of Systems Constitutional: Reports: see HPI. Objective Last 24 Hrs of Vital Signs/I&O Vital Signs Date Time Temp Pulse Resp B/P B/P Pulse O2 O2 Flow FiO2 Mean Ox Delivery Rate 02/14 1422 97.9 55 20 106/54 92 02/14 0837 66 128/76 02/14 0800 Room Air 02/14 0632 97.5 68 18 126/70 96 02/13 2126 98.3 71 18 144/64 94 Room Air 02/13 2043 70 144/64 Intake & Output 02/14 1600 02/14 0800 02/14 0000 Intake Total 830 225 Output Total Balance 830 225 Intake, IV 30 Intake, Oral 800 225 Number 1 Bowel Movements Physical Exam General Appearance: Alert, Oriented X3, Cooperative, No Acute Distress Skin: mild swelling of right hand, 2nd and 4th digit HEENT: Atraumatic Neck: Supple, No JVD Cardiovascular: Regular Rate, Normal S1, Normal S2 Lungs: Clear to Auscultation Abdomen: Soft, No Tenderness Neurological: Normal Speech Extremities: No Edema, Normal Pulses Assessment/Plan Assessment: 82 y/o F with PMH of gout, hypothyroidism, uterine cancer s/p hysterectomy, HTN, HLD, DM, CAD s/p PCI and stents on ASA/Plavix presented with acute onset sudden abdominal pain. He will be off anticoagulant until Wednesday, and we will go to OR on Wednesday. #Cholangtits: on presentation had epigastric pain along with nausea, vomiting and decreased appetite. CT scan on 02/08/2018 showed gallstones, CBD diameter of 1.2 cm and nonobstructive right renal stone. Pt had leukocytosis with bandemia, worsening LFT. Now both on a decreasing trend. GI has been following and strongly recommended surgical intervention for the patient. She has been off Plavix for 3 days. HIDA scan did rule out acute cholecystitis. -F/u liver enzymes #Cholelithiasis: On presentation based patient had biliary colic, during hospitalization patient most likely has passed a biliary stone which has led to improvement in patient's physical symptoms. -Patient is tentatively scheduled to have cholecystectomy on Wednesday on 2017 -Continue to hold Plavix can resume after surgery. Last dose of Plavix was on -Cleared by cardiology on 02/11/2018 for the surgery #History Of CAD s/p PCI: -Holding Plavix and aspirin until surgery will resume on postop day 1 #Hypertension #Diabetes -NovoLog low-dose sliding scale #Hypothyroidism #Gout -Continue allopurinol at home dose -Acute flare of right hand, digits; colchicine prescribed 1.2 mg followed by 0.6 mg in one hour #Overactive bladder -Continue mirabegron DVT PPx. FC Problem List: 1. Cholecystitis Pain Ratin Pain Location: na Pain Goal: Remain pain free Pain Plan: na Tomorrow's Labs & Rationales: routine
--- NOTE | 2018-02-14 13:38 | PN- Att Addend ---
Attending Addendum Attending Brief Note Patient sitting in the chair right hand hurts "I have the gout" Vital signs stable no fever. will check uric acid treat accordingly. surgery tomorrow. Intake & Output 02/14 1600 02/14 0400 02/13 1600 02/13 0400 02/12 1600 02/12 0400 Intake Total 225 9445 898 2220 400 Output Total Balance 225 4483 573 5995 400 Intake, IV 120 120 0 Intake, Oral 225 4536 908 7837 400 Number 1 1 0 1 Bowel Movements Patient 198 lb Weight Current Medications Sig/Evan Start time Last Medication Dose Route Stop Time Status Admin Acetaminophen 650 MG Q6P PRN 02/08 2330 AC 02/14 PO 1106 Allopurinol 100 MG DAILY 02/09 09 AC 02/14 PO 0838 Amlodipine Besylate 10 MG DAILY 02/09 09 AC 02/14 PO 0838 Ceftriaxone Sodium 1,000 MG DAILY 02/10 1655 AC 02/14 IV 0836 Heparin Sodium 5,000 UNIT Q8 02/09 0600 AC 02/11 (Porcine) SC 2232 Insulin Aspart 0 TIDAC 02/10 0800 AC 02/14 SC 1241 Levothyroxine Sodium 0.075 MG DAILY 02/09 0900 AC 02/14 PO 0838 Losartan Potassium 50 MG DAILY 02/09 0900 AC 02/14 PO 0837 Magnesium Oxide 400 MG DAILY 02/09 1552 AC 02/14 PO 0838 Metoprolol Tartrate 25 MG BID 02/09 09 AC 02/14 PO 0837 Metronidazole 500 MG IQ8 02/09 1600 DC 02/13 N/A 1 UNIT IV 0904 Mirabegron 50 MG DAILY 02/09 0900 AC 02/14 PO 0838 Ondansetron HCl 4 MG Q6P PRN 02/08 2330 AC IV Patient Medication 1 ED ONE ONE 02/14 0930 DC Teaching ED 02/14 0931 Rosuvastatin Calcium 20 MG DAILY 02/09 09 AC 02/14 PO 0838 Laboratory Tests 02/14/18 0709: Anion Gap 8, Estimated GFR 43 L, BUN/Creatinine Ratio 16.7 02/13/18 0734: Anion Gap 11, Estimated GFR 43 L, BUN/Creatinine Ratio 15.0, CBC w Diff NO MAN DIFF REQ, RBC 4.03 L, MCV 81.7, MCH 27.3, MCHC 33.4, RDW 16.6 H, MPV 8.3, Gran % 64.6, Lymphocytes % 17.1 L, Monocytes % 12.7 H, Eosinophils % 5.3 H, Basophils % 0.3, Absolute Granulocytes 4.8, Absolute Lymphocytes 1.3, Absolute Monocytes 0.9 H, Absolute Eosinophils 0.4, Absolute Basophils 0 02/12/18 0745: Anion Gap 8, Estimated GFR 39 L, BUN/Creatinine Ratio 13.1, CBC w Diff NO MAN DIFF REQ, RBC 3.73 L, MCV 81.7, MCH 27.2, MCHC 33.3, RDW 17.0 H, MPV 8.5, Gran % 71.0, Lymphocytes % 13.1 L, Monocytes % 12.0 H, Eosinophils % 3.4, Basophils % 0.5, Absolute Granulocytes 5.8, Absolute Lymphocytes 1.1 L, Absolute Monocytes 1.0 H, Absolute Eosinophils 0.3, Absolute Basophils 0 Vital Signs Date Time Temp Pulse Resp B/P B/P Pulse O2 O2 Flow FiO2 Mean Ox Delivery Rate 02/14 0837 66 128/76 02/14 0800 Room Air 02/14 0632 97.5 68 18 126/70 96 02/13 2126 98.3 71 18 144/64 94 Room Air 02/13 2043 70 144/64 02/13 1440 97.9 84 24 132/58 93
[2018-02-14 14:22] VITALS: BP 106/54
--- NOTE | 2018-02-14 17:28 | PN- General Surgery ---
Surgical Brief Attending Note Brief Attending Note: No new events, doing well, tolerating diet, denies pain. AVSS. Abd-soft. Labs ok. Plan for Lap Lena tomorrow, NPO after midnight.
[2018-02-14 22:02] VITALS: BP 136/68
[2018-02-15 06:39] VITALS: BP 134/68
--- NOTE | 2018-02-15 07:04 | PN- Housestaff ---
Subjective Follow-up For: Abdominal pain Subjective: Patient seen and examined at bedside this morning. Patient sitting on chair claiming to not have slept well. She denied significant pain. Claimed she was able to get up to the commode by herself. Denies any nausea, vomiting, significant abdominal pain, diarrhea. Patient NPO receiving fluids and scheduled for cholecystectomy today at 1PM. Review of Systems Constitutional: Denies: see HPI. Objective Last 24 Hrs of Vital Signs/I&O Vital Signs Date Time Temp Pulse Resp B/P B/P Pulse O2 O2 Flow FiO2 Mean Ox Delivery Rate 02/15 08 64 138/70 02/15 0838 64 138/70 02/15 0838 64 138/70 02/15 0639 98.2 61 20 134/68 96 Room Air 02/14 220 97.9 74 20 136/68 95 02/14 2132 74.0 136/68 Intake & Output 02/15 1600 02/15 0800 02/15 0000 Intake Total 300 400 300 Output Total Balance 300 400 300 Intake, IV 300 Intake, Oral 0 400 300 Number 0 Bowel Movements Physical Exam General Appearance: Alert, Oriented X3, Cooperative, No Acute Distress Skin: No Rashes, No Breakdown HEENT: PERRLA, EOMI, Mucous Membr. moist/pink Cardiovascular: Regular Rate, Normal S1, Normal S2 Lungs: Clear to Auscultation, Normal Air Movement Abdomen: Soft, No Hepatospenomegaly, tender to palpation in right upper quadrant Extremities: No Clubbing, No Cyanosis, No Edema Vascular: Normal Pulses, Pulses Symmetrical Current Medications: Current Medications Sig/Evan Start time Last Medication Dose Route Stop Time Status Admin Acetaminophen 650 MG Q6P PRN 02/08 2330 AC 02/14 PO 1106 Allopurinol 100 MG DAILY 02/09 09 AC 02/15 PO 0838 Amlodipine Besylate 10 MG DAILY 02/09 09 AC 02/15 PO 0838 Ceftriaxone Sodium 1,000 MG DAILY 02/10 1655 DC 02/14 IV 0836 Colchicine 600 MCG ONCE ONE 02/14 1800 DC 02/14 PO 02/14 1801 2131 Colchicine 1,200 MCG ONCE ONE 02/14 1700 DC 02/14 PO 02/14 1701 1845 Dextrose/Sodium 1,000 ML Q20H 02/15 0015 AC 02/15 Chloride IV 02/15 Fentanyl Citrate 0 .STK-MED ONE 02/15 1245 DC .ROUTE Heparin Sodium 5,000 UNIT Q8 02/09 06 AC 02/11 (Porcine) SC 2232 Hydromorphone HCl 0 .STK-MED ONE 02/15 1245 DC .ROUTE Insulin Aspart 0 TIDAC 02/10 0800 DC 02/14 SC 1734 Insulin Human Regular 0 Q6 02/15 0015 AC 02/15 SC 1232 Levothyroxine Sodium 0.075 MG DAILY 02/09 09 AC 02/15 PO 08 Losartan Potassium 50 MG DAILY 02/09 09 AC 02/15 PO 08 Magnesium Oxide 400 MG DAILY 02/09 1552 AC 02/15 PO 08 Metoprolol Tartrate 25 MG BID 02/09 900 AC 02/15 PO 08 Mirabegron 50 MG DAILY 02/09 09 AC 02/15 PO 0839 Ondansetron HCl 4 MG Q6P PRN 02/08 2330 AC IV Rosuvastatin Calcium 20 MG DAILY 02/09 900 AC 02/15 PO 08 Assessment/Plan Assessment: 82 y/o F with PMH of gout, hypothyroidism, uterine cancer s/p hysterectomy, HTN, HLD, DM, CAD s/p PCI and stents on ASA/Plavix presented with acute onset sudden abdominal pain. She will be off anticoagulant until Wednesday (02/15/18) for cholecyestectomy. Patient afebrile this morning. No significant complaints, sitting on chair. NPO and scheduled for OR cholecystectomy today. R/O Cholangitis -on presentation had epigastric pain along with nausea, vomiting and decreased appetite. CT scan on 02/08/2018 showed gallstones, CBD diameter of 1.2 cm and nonobstructive right renal stone. Pt had leukocytosis with bandemia, worsening LFT. Now both on a decreasing trend. GI has been following and strongly recommended surgical intervention for the patient. She has been off Plavix. HIDA scan did rule out acute cholecystitis. * Received cipro/metro doses; 5 doses Rocephin received * OR for cholecyestectomy today Cholelithiasis -On presentation based patient had biliary colic, during hospitalization patient most likely has passed a biliary stone which has led to improvement in patient's physical symptoms. * Patient is scheduled to have cholecystectomy today * Continue to hold Plavix can resume after surgery. Last dose of Plavix was on 02/08/2018 * Cleared by cardiology on 02/11/2018 for the surgery History Of CAD s/p PCI: * Continue metoprolol and statin * Troponins negative x 2 * Holding Plavix and aspirin until surgery will resume on postop day 1 Hypertension * Continue ARB, metoprolol, and Norvasc Diabetes * NovoLog low-dose sliding scale * Hold Janumet * Accu-Cheks 3 times daily before meals Hypothyroidism * Continue Synthroid 75 mcg Gout * Continue allopurinol at home dose Acute flare of right hand, digits; colchicine prescribed 1.2 mg followed by 0.6 mg in one hour Overactive bladder * Continue mirabegron DVT PPx: Heparin SC FC Problem List: 1. Abdominal pain 2. Cholelithiasis 3. Cholecystitis Pain Ratin Pain Location: right upper quadrant Pain Goal: Pain 4 or less Pain Plan: as per pain pathway Tomorrow's Labs & Rationales: cbc bep
--- NOTE | 2018-02-15 10:14 | PN- Att Addend ---
Attending Addendum Attending Brief Note Patient comfortable. She is n.p.o. ready for her surgery today. Vital signs are stable no fever. No new changes on physical. Intake & Output 02/15 1600 02/15 0400 02/14 1600 02/14 0400 02/13 1600 02/13 0400 Intake Total 400 300 836 382 1487 360 Output Total Balance 400 300 870 760 5379 360 Intake, IV 30 120 120 Intake, Oral 400 300 985 632 6261 240 Number 0 1 1 0 Bowel Movements Current Medications Sig/Evan Start time Last Medication Dose Route Stop Time Status Admin Acetaminophen 650 MG Q6P PRN 02/08 2330 AC 02/14 PO 1106 Allopurinol 100 MG DAILY 02/09 09 AC 02/15 PO 0838 Amlodipine Besylate 10 MG DAILY 02/09 900 AC 02/15 PO 0838 Ceftriaxone Sodium 1,000 MG DAILY 02/10 1655 DC 02/14 IV 0836 Colchicine 600 MCG ONCE ONE 02/14 1800 DC 02/14 PO 02/14 1801 2131 Colchicine 1,200 MCG ONCE ONE 02/14 1700 DC 02/14 PO 02/14 1701 1845 Dextrose/Sodium 1,000 ML Q20H 02/15 0015 AC 02/15 Chloride IV 02/15 2014 004 Heparin Sodium 5,000 UNIT Q8 02/09 06 02/11 (Porcine) AR 2232 Insulin Aspart 0 TIDAC 02/10 08 NJ 02/14 AR 1734 Insulin Human Regular 0 Q6 02/15 0015 02/15 SC 0602 Levothyroxine Sodium 0.075 MG DAILY 02/09 09 AC 02/15 PO 0838 Losartan Potassium 50 MG DAILY 02/09 09 AC 02/15 PO 0838 Magnesium Oxide 400 MG DAILY 02/09 1552 AC 02/15 PO 0838 Metoprolol Tartrate 25 MG BID 02/09 900 AC 02/15 PO 0838 Mirabegron 50 MG DAILY 02/09 09 AC 02/15 PO 0839 Ondansetron HCl 4 MG Q6P PRN 02/08 2330 AC IV Rosuvastatin Calcium 20 MG DAILY 02/09 09 AC 02/15 PO 0838 Laboratory Tests 02/14/18 0709: Anion Gap 8, Estimated GFR 43 L, BUN/Creatinine Ratio 16.7, Uric Acid 5.9 08/26/18 0734: Anion Gap 11, Estimated GFR 43 L, BUN/Creatinine Ratio 15.0, CBC w Diff NO MAN DIFF REQ, RBC 4.03 L, MCV 81.7, MCH 27.3, MCHC 33.4, RDW 16.6 H, MPV 8.3, Gran % 64.6, Lymphocytes % 17.1 L, Monocytes % 12.7 H, Eosinophils % 5.3 H, Basophils % 0.3, Absolute Granulocytes 4.8, Absolute Lymphocytes 1.3, Absolute Monocytes 0.9 H, Absolute Eosinophils 0.4, Absolute Basophils 0 Vital Signs Date Time Temp Pulse Resp B/P B/P Pulse O2 O2 Flow FiO2 Mean Ox Delivery Rate 02/15 0838 64 138/70 02/15 0838 64 138/70 02/15 0838 64 138/70 02/15 0639 98.2 61 20 134/68 96 Room Air 02/14 2202 97.9 74 20 136/68 95 02/14 2132 74.0 136/68 02/14 1422 97.9 55 20 106/54 92
--- NOTE | 2018-02-15 14:46 | PN- General Surgery ---
Surgical Brief Attending Note Brief Attending Note: Patient seen and examined, no new events. No pain, off Plavix. AVSS. Abd-soft. Labs ok. Plan for Lap Lena today.
--- NOTE | 2018-02-15 14:56 | Operative Report ---
Operative/Inv Procedure Report Surgery Date: 02/15/18 Name of Procedure: Laparoscopic Cholecystectomy Pre-Operative Diagnosis: Cholelithiasis/Cholecystitis Post-Operative Diagnosis: Same Estimated Blood Loss: less than 50ml Surgeon/Patents Examiner: Mahamed Oquendo Anesthesia: general endotracheal tube IV Fluids: 1100 cc Drains: None Specimens: Gallbladder Complications: None Condition: Stable Operative Indication: This is an 82-year-old female presented to the hospital week ago with abdominal pain. Patient was found to have cholelithiasis and a dilated common bile duct. Patient has also been on Plavix. Patient's pain improved and her liver function tests improved with no intervention. As per the medical team the patient stayed in the hospital for the duration of the time to be off Plavix. Once patient has been off of Plavix for a long enough time a laparoscopic possible open cholecystectomy was discussed in detail. All risks including but not limited to bleeding, infection, bile leak, and injury to surrounding ducts/bowel were discussed in detail. The patient understood everything and decided to proceed. Operative/Procedure Note Note: The patient was brought to the operating room and placed on the operating room table in supine position. Venodyne stockings were placed and adequate general endotracheal anesthesia was obtained. The patient was prepped and draped in standard surgical fashion. We began the procedure by making a 2 cm transverse incision in the infraumbilical crease. The incision was carried down to the fascia, once the fascia was clearly visualized it was picked up between 2 devaughn clamps. The fascia was divided in the midline and once we entered the peritoneum 2 stay 0 Vicryl sutures were placed on each side. A 12 mm blunt port was inserted and the abdominal cavity was insufflated to 15 mmHg. A 10 mm 30 laparoscope was introduced and upon initial examination no obvious gross pathology was seen. We did note a distended gallbladder in the right upper quadrant. Accessory trocars were placed, all 5 mm, one in the epigastrium and 2 in the right upper quadrant (one in the midclavicular line and one in the anterior axillary line, both 2 fingerbreadths below the costal margin). The gallbladder was grasped with the lateralmost trocar and retracted up over the liver. Using the other 2 accessory trocars the infundibulum was grasped and the peritoneum was lysed using blunt dissection and using hook electrocautery. The cystic duct and cystic artery were visualized. The common bile duct was visualized and it was away from our area of dissection and it was noted to be markedly dilated. The cystic duct and artery were skeletonized and divided between clips, 3 clips to stay and one clip on the gallbladder side for the duct and 2 clips to stay and one clip on the gallbladder side for the artery. The gallbladder was dissected off the liver bed using hook electrocautery maintaining hemostasis. Prior to completely removing the gallbladder off the liver bed we examined the area of dissection no obvious bile leak or bleeding was noted, the clips appeared to be in good position. The gallbladder was completely detached from the liver bed. We switched to a 5 mm laparoscope and a 10 mm Endobag was introduced through the umbilical trocar site. The gallbladder was placed in the bag and removed through the umbilicus. The abdomen was reinsufflated. We switched back to a 10 mm laparoscope and examined our area of dissection. No obvious bile leak or bleeding was noted. The right upper quadrant was irrigated until clear. All ports were removed under direct visualization, no obvious bleeding was noted. The umbilical trocar site was closed using 0 Vicryl suture. The skin was closed using 4-0 Monocryl. Steri- Strips and dressings were placed. The patient was successfully extubated and transferred to the recovery room in stable condition. The patient tolerated the procedure well with no complications. Findings: Distended gallbladder, small gallstones, markedly dilated CBD CC: Kristie MARIN,Kamar
[2018-02-15 16:26] VITALS: BP 90/50
--- NOTE | 2018-02-15 18:18 | PN- General Surgery ---
Subjective Subjective: Postop check: Patient sleepy but arousable. She has no pain. She is nauseous. She has no other complaints. Objective Vital Signs and I&Os Vital Signs Date Time Temp Pulse Resp B/P B/P Pulse O2 O2 Flow FiO2 Mean Ox Delivery Rate 02/15 0838 64 138/70 02/15 0838 64 138/70 02/15 0838 64 138/70 02/15 0639 98.2 61 20 134/68 96 Room Air 02/14 2202 97.9 74 20 136/68 95 02/14 2132 74.0 136/68 Intake & Output 02/15 1600 02/15 0800 02/15 0000 02/14 1600 02/14 0800 02/14 0000 Intake Total 300 400 300 830 225 Output Total Balance 300 400 300 830 225 Intake, IV 300 30 Intake, Oral 0 400 300 800 225 Number 0 1 Bowel Movements Physical Exam: Well-developed well-nourished no apparent distress. HEENT: Atraumatic, extraocular motion intact Neck: Supple, no lymphadenopathy Respiratory: No respiratory distress Abdomen: Nontender, dressings clean dry and intact, minimal distention. Extremities: No edema, no calf pain Neuro: Alert and oriented x3 Psych: Mood affect normal, normal memory normal judgment. Skin: Warm and dry, no rash on exposed skin Assessment/Plan Assessment/Plan Postop day #0 status post laparoscopic cholecystectomy secondary to choledocholithiasis Perioperative antibiotics Pain medication as needed. Antiemetics as needed. Out of bed, ambulate. IV fluids until tolerating adequate p.o. Low-fat diet. May resume aspirin tomorrow May resume Plavix on 02/17 No follow-up labs required from a surgical standpoint Dressings in place for 3 days, may remove and Place Band-Aids Follow-up with Dr. Vasquez in 10-14 days as outpatient, continue low-fat diet and 10 pound weight lifting restriction until follow-up visit. Core Measures Venous Thromboembolism VTE Risk Factors Age>40 No Mechanical VTE Prophylaxis d/t N/A MechProphylax Ordered No VTE Pharm Prophylaxis d/t NA PharmProphylax ordered
[2018-02-15 20:00] VITALS: BP 130/60
[2018-02-16 06:35] VITALS: BP 140/70
--- NOTE | 2018-02-16 06:57 | PN- Housestaff ---
Subjective Follow-up For: Cholecystitis/Abdominal Pain Subjective: Patient seen and examined at bedside. She was sitting in chair on 2L NC. She is day 1 status post cholecystectomy. Patient is afebrile and denies any acute complaints. She has post surgical soreness but no significant pain. Patient able to pass gas and has had small bowel movement since surgery. Review of Systems Constitutional: Denies: see HPI. Objective Last 24 Hrs of Vital Signs/I&O Vital Signs Date Time Temp Pulse Resp B/P B/P Pulse O2 O2 Flow FiO2 Mean Ox Delivery Rate 02/16 1415 97.9 64 16 140/64 02/16 0836 76 140/70 02/16 0835 76 140/70 02/16 0835 76 140/70 02/16 0635 97.5 76 16 140/70 95 Room Air 02/16 0000 Nasal 2.0L Cannula 02/15 2021 69 130/60 02/15 2000 97.1 69 16 130/60 93 Nasal Cannula Intake & Output 02/16 1600 02/16 0800 02/16 0000 Intake Total 120 610 Output Total 300 Balance 120 310 Intake, IV 310 Intake, Oral 120 300 Number 0 Bowel Movements Output, Urine 300 Physical Exam General Appearance: Alert, Oriented X3, Cooperative Skin: No Rashes, No Breakdown HEENT: Atraumatic, PERRLA, EOMI Cardiovascular: Regular Rate, Normal S1, Normal S2 Lungs: Clear to Auscultation, Normal Air Movement Abdomen: Lap procedure stitches intact, clean, dry Extremities: No Clubbing, No Cyanosis, No Edema Vascular: Normal Pulses, Pulses Symmetrical Current Medications: Current Medications Sig/Evan Start time Last Medication Dose Route Stop Time Status Admin Acetaminophen 650 MG Q6P PRN 02/08 2330 AC 02/14 PO 1106 Allopurinol 100 MG DAILY 02/09 09 AC 02/16 PO 0835 Amlodipine Besylate 10 MG DAILY 02/09 09 AC 02/16 PO 0835 Aspirin Buffered 81 MG DAILY 02/17 09 UNVr PO Benzocaine/Menthol 1 OLYA Q2P PRN 02/16 0845 AC PO Clindamycin 600 MG IQ8 02/15 1600 DC 02/16 Dextrose/Water 50 ML IV 02/16 0029 0133 Dextrose/Sodium 1,000 ML Q13H 02/15 1945 DC 02/15 Chloride IV 1951 Dextrose/Sodium 1,000 ML Q20H 02/15 0015 DC 02/15 Chloride IV 02/15 Heparin Sodium 5,000 UNIT Q8 02/09 0600 AC 02/16 (Porcine) SC 1400 Insulin Aspart 0 TIDAC 02/15 1900 DC SC Insulin Human Regular 0 Q6 02/15 2359 AC 02/16 SC 1200 Insulin Human Regular 0 Q6 02/15 0015 DC 02/15 SC 02/15 1900 1831 Levothyroxine Sodium 0.075 MG DAILY 02/09 09 AC 02/16 PO 0835 Losartan Potassium 50 MG DAILY 02/09 09 AC 02/16 PO 0836 Magnesium Oxide 400 MG DAILY 02/09 1552 AC 02/16 PO 0836 Metoprolol Tartrate 25 MG BID 02/09 900 AC 02/16 PO 0835 Mirabegron 50 MG DAILY 02/09 09 AC 02/16 PO 0836 Ondansetron HCl 4 MG Q6P PRN 02/08 2330 AC IV Rosuvastatin Calcium 20 MG DAILY 02/09 900 AC 02/16 PO 0845 Last 24 Hrs of Lab/Tayo Results Last 24 Hrs of Labs/Mics: Laboratory Tests 02/16/18 0715: Anion Gap 9, Estimated GFR 53 L, BUN/Creatinine Ratio 19.0, CBC w Diff NO MAN DIFF REQ, RBC 3.77 L, MCV 81.7, MCH 26.5 L, MCHC 32.5 L, RDW 16.8 H, MPV 8.4 , Gran % 90.4 H, Lymphocytes % 6.5 L, Monocytes % 2.9, Eosinophils % 0, Basophils % 0.2, Absolute Granulocytes 12.7 H, Absolute Lymphocytes 0.9 L, Absolute Monocytes 0.4, Absolute Eosinophils 0, Absolute Basophils 0 Assessment/Plan Assessment: 82 y/o F with PMH of gout, hypothyroidism, uterine cancer s/p hysterectomy, HTN, HLD, DM, CAD s/p PCI and stents on ASA/Plavix presented with acute onset sudden abdominal pain. She will be off anticoagulant until Wednesday (02/15/18) for cholecyestectomy. 02/16: Patient day 1 status post cholecystectomy. Patient on 2L NC and sitting in chair getting her nails done. Patient afebrile with normal vital signs. Abdomen is soft. Will monitor patient off 2L NC oxygen prior to discharge. Will continue aspirin and plavix accordingly. Abdominal Pain/Cholelithiasis * Received cipro/metro doses; 5 doses Rocephin received * Day 1 status post cholecystectomy * Will continue Plavix and Aspirin on 02/17 * continue to follow surgery recommendations History Of CAD s/p PCI: * Continue metoprolol and statin * Continuing aspirin and plavix on 02/17 Hypertension * Continue ARB, metoprolol, and Norvasc Diabetes * NovoLog low-dose sliding scale * Hold Janumet * Accu-Cheks 3 times daily before meals Hypothyroidism * Continue Synthroid 75 mcg Gout * Continue allopurinol at home dose Overactive bladder * Continue mirabegron DVT PPx: Heparin SC Code Status: FC Problem List: 1. Abdominal pain 2. Cholecystitis Pain Ratin Pain Location: diffuse abdominal Pain Goal: Pain 4 or less Pain Plan: as per pain pathway Tomorrow's Labs & Rationales: cbc bep cbc bep
[2018-02-16 08:13] LABS: ABSOLUTE BASOPHIL COUNT 0 /CUMM (0.0-0.2); ABSOLUTE EOSINOPHIL COUNT 0 /CUMM (0.0-0.7); ABSOLUTE GRANULOCYTE CT 12.7 /CUMM (1.4-6.5); ABSOLUTE LYMPH COUNT 0.9 /CUMM (1.2-3.4); ABSOLUTE MONOCYTE COUNT 0.4 /CUMM (0.10-0.60); BASOPHIL % 0.2 % (0.0-2.0); EOSINOPHIL % 0 % (0-5); HEMATOCRIT 30.8 % (37-47); MEAN CORPUSCULAR HGB 26.5 PG (27.0-31.0); MEAN CORPUSCULAR HGB CONC 32.5 G/DL (33.0-37.0); MEAN CORPUSCULAR VOLUME 81.7 FL (81.0-99.0); MEAN PLATELET VOLUME 8.4 FL (7.4-10.4); PLATELET COUNT 361 /CUMM (130-400); RBC DISTRIBUTION WIDTH 16.8 % (11.5-14.5); RED BLOOD CELL CT 3.77 /CUMM (4.20-5.40)
--- NOTE | 2018-02-16 08:38 | PN- General Surgery ---
Subjective Subjective: Reports sore throat. Asking for lozenges. Tolerating clears / food. No nausea. Out of bed to chair. Objective Vital Signs and I&Os Vital Signs Date Time Temp Pulse Resp B/P B/P Pulse O2 O2 Flow FiO2 Mean Ox Delivery Rate 02/16 0635 97.5 76 16 140/70 95 Room Air 02/15 202 69 130/60 02/16 2000 97.1 69 16 130/60 93 Nasal Cannula 02/15 1626 97.5 56 16 90/50 92 Nasal 2.0L Cannula 02/15 162 91 Nasal 2.0L Cannula Intake & Output 02/16 1600 02/16 0800 02/16 0000 02/15 1600 02/15 0800 02/15 0000 Intake Total 610 300 400 300 Output Total 300 Balance 310 300 400 300 Intake, IV 310 300 Intake, Oral 300 0 400 300 Number 0 0 Bowel Movements Output, Urine 300 Physical Exam: General - alert & oriented x 3. comfortable. no acute distress. out of bed to chair Abdomen - soft. dressings c/d/i. expected mariela-incisional tenderness. no drains. Current Medications: Current Medications Sig/Evan Start time Last Medication Dose Route Stop Time Status Admin Acetaminophen 650 MG Q6P PRN 02/08 2330 AC 02/14 PO 1106 Allopurinol 100 MG DAILY 02/09 09 AC 02/15 PO 08 Amlodipine Besylate 10 MG DAILY 02/09 0900 AC 02/15 PO 0838 Benzocaine/Menthol 1 OLYA Q2P PRN 02/16 0845 UNVr PO Clindamycin 600 MG IQ8 02/15 1600 DC 02/16 Dextrose/Water 50 ML IV 02/16 0029 0133 Dextrose/Sodium 1,000 ML Q13H 02/15 1945 AC 02/15 Chloride IV 1951 Dextrose/Sodium 1,000 ML Q20H 02/15 0015 DC 02/15 Chloride IV 02/15 2014 0043 Fentanyl Citrate 0 .STK-MED ONE 02/15 1245 DC .ROUTE Haloperidol 0 .STK-MED ONE 02/15 1509 DC .ROUTE Heparin Sodium 5,000 UNIT Q8 02/09 0600 AC 02/16 (Porcine) SC 0632 Hydromorphone HCl 0 .STK-MED ONE 02/15 1245 DC .ROUTE Insulin Aspart 0 TIDAC 02/15 1900 DC SC Insulin Human Regular 0 Q6 02/15 2359 AC 02/16 SC 0631 Insulin Human Regular 0 Q6 02/15 0015 DC 02/15 MT 02/15 1900 1831 Levothyroxine Sodium 0.075 MG DAILY 02/09 09 AC 02/15 PO 0838 Losartan Potassium 50 MG DAILY 02/09 0900 AC 02/15 PO 0838 Magnesium Oxide 400 MG DAILY 02/09 1552 AC 02/15 PO 0838 Metoprolol Tartrate 25 MG BID 02/09 09 AC 02/15 PO 2021 Mirabegron 50 MG DAILY 02/09 0900 AC 02/15 PO 0839 Ondansetron HCl 4 MG Q6P PRN 02/08 2330 AC IV Rosuvastatin Calcium 20 MG DAILY 02/09 09 AC 02/15 PO 0838 Results Last 48 Hours of Labs: Laboratory Tests 02/16 715 Chemistry Sodium Pending Potassium Pending Chloride Pending Carbon Dioxide Pending Anion Gap Pending BUN Pending Creatinine Pending BUN/Creatinine Ratio Pending Hematology CBC w Diff Pending WBC Pending RBC Pending Hgb Pending Hct Pending MCV Pending MCH Pending MCHC Pending RDW Pending Plt Count Pending MPV Pending Gran % Pending Lymphocytes % Pending Monocytes % Pending Eosinophils % Pending Basophils % Pending Absolute Granulocytes Pending Absolute Lymphocytes Pending Absolute Monocytes Pending Absolute Eosinophils Pending Absolute Basophils Pending Assessment/Plan Assessment/Plan This 82 year old female with history significant for gout, hypothyroidism, uterine cancer s/p hysterectomy, hypertension, hyperlipidemia, diabetes, CAD s/p PCI and stents on aspirin/plavix is POD#1 s/p laparoscopic cholecystectomy for cholelithiasis/cholecystitis Low-fat diet as tolerated chloraseptic lozenges prn sore throat May resume aspirin today May resume Plavix on 02/17, tomorrow No follow-up labs required from a surgical standpoint Dressings in place for 3 days, may remove and Place Band-Aids no heavy lifting >10 lbs for at least 2 weeks f/u Dr. Vasquez in 2 weeks, continue low-fat diet
--- NOTE | 2018-02-16 08:44 | Patient Discharge Instructions ---
Discharge Instructions General Discharge Information You were seen/treated for: Cholelithiasis/Cholecystitis You had these procedures: Surgery Date: 02/15/18 Name of Procedure: Laparoscopic Cholecystectomy Watch for these problems: fever>101.3, increased pain, redness/swelling/drainage, dizziness, shortness of breath, chest pains No bath, but you may shower: Yes Other wound care: ok to remove band aids in 24 hours. leave white steri strips in place Special Instructions: keep incisions clean & dry Please follow up with your PCP after discharge. Please follow up with Gatroenterology 2 weeks after discharge. Please follow up with your surgen after discharge accordingly. Diet Continue normal diet: Yes Recommended Diet: Diabetic, Heart Healthy, Low Fat Activity Full Activity/No Limits: No Activity Self Limited: Yes Pounds, do NOT lift more than: 10 Acute Coronary Syndrome Inclusion Criteria At DC or during hospital stay patient has or had the following: ACS DIAGNOSIS No Discharge Core Measures Meds if any: Prescribed or Continued at Discharge Meds if any: NOT Prescribed or Continued at Discharge Congestive Heart Failure Inclusion Criteria At DC or during hospital stay patient has or had the following: CHF DIAGNOSIS No Discharge Core Measures Meds if any: Prescribed or Continued at Discharge Meds if any: NOT Prescribed or Continued at Discharge Cerebrovascular accident Inclusion Criteria At DC or during hospital stay patient has or had the following: CVA/TIA Diagnosis No Discharge Core Measures Meds if any: Prescribed or Continued at Discharge Meds if any: NOT Prescribed or Continued at Discharge Venous thromboembolism Inclusion Criteria VTE Diagnosis No VTE Type NONE VTE Confirmed by (Test) NONE Discharge Core Measures - Per Current guidelines, there needs to be overlap - treatment for the first 5 days of Warfarin therapy. - If discharged on Warfarin prior to 5 days of - overlap therapy, the patient will need to be - assessed for post discharge needs including - *Post discharge parental anticoagulation - *Warfarin and/or parental anticoagulation education - *Follow up date to check INR post discharge At least 5 days overlap therapy as Inpatient No Meds if any: Prescribed or Continued at Discharge Note: Overlap Therapy is Warfarin and Anticoagulant Meds if any: NOT Prescribed or Continued at Discharge
[2018-02-16 08:52] LABS: GRANULOCYTE % 90.4 % (42.2-75.2)
[2018-02-16 14:15] VITALS: BP 140/64
--- NOTE | 2018-02-16 15:26 | PN- Att Addend ---
Attending Addendum Attending Brief Note Patient tolerated the surgery well vision sitting in the chair still has some oxygen on. Her vital signs are stable no fever. Her abdomen is soft. Patient will be checked with surgery and if okay with surgery and after getting her off the oxygen it is okay to start disposition plans for the patient to go home. Intake & Output 02/16 1600 02/16 0400 02/15 1600 02/15 0400 02/14 1600 02/14 0400 Intake Total 120 610 700 300 830 225 Output Total 300 Balance 120 310 700 300 830 225 Intake, IV 310 300 30 Intake, Oral 120 300 400 300 800 225 Number 0 0 1 Bowel Movements Output, Urine 300 Current Medications Sig/Evan Start time Last Medication Dose Route Stop Time Status Admin Acetaminophen 650 MG Q6P PRN 02/08 2330 AC 02/14 PO 1106 Allopurinol 100 MG DAILY 02/09 09 AC 02/16 PO 0835 Amlodipine Besylate 10 MG DAILY 02/09 900 AC 02/16 PO 0835 Benzocaine/Menthol 1 OLYA Q2P PRN 02/16 0845 PO Clindamycin 600 MG IQ8 02/15 1600 DC 02/16 Dextrose/Water 50 ML IV 02/16 0029 0133 Dextrose/Sodium 1,000 ML Q13H 02/15 1945 IN 02/15 Chloride IV 1951 Dextrose/Sodium 1,000 ML Q20H 02/15 0015 IN 02/15 Chloride IV 02/15 2014 0043 Heparin Sodium 5,000 UNIT Q8 02/09 0600 02/16 (Porcine) SC 0632 Insulin Aspart 0 TIDAC 02/15 1900 [facility] Insulin Human Regular 0 Q6 02/15 2359 02/16 SC 0631 Insulin Human Regular 0 Q6 02/15 0015 IN 02/15 SC 02/15 1900 1831 Levothyroxine Sodium 0.075 MG DAILY 02/09 09 AC 02/16 PO 0835 Losartan Potassium 50 MG DAILY 02/09 09 AC 02/16 PO 0836 Magnesium Oxide 400 MG DAILY 02/09 1552 AC 02/16 PO 0836 Metoprolol Tartrate 25 MG BID 02/09 900 AC 02/16 PO 0835 Mirabegron 50 MG DAILY 02/09 09 AC 02/16 PO 0836 Ondansetron HCl 4 MG Q6P PRN 02/08 2330 AC IV Rosuvastatin Calcium 20 MG DAILY 02/09 0900 AC 02/16 PO 0845 Laboratory Tests 02/16/18 0715: Anion Gap 9, Estimated GFR 53 L, BUN/Creatinine Ratio 19.0, CBC w Diff NO MAN DIFF REQ, RBC 3.77 L, MCV 81.7, MCH 26.5 L, MCHC 32.5 L, RDW 16.8 H, MPV 8.4 , Gran % 90.4 H, Lymphocytes % 6.5 L, Monocytes % 2.9, Eosinophils % 0, Basophils % 0.2, Absolute Granulocytes 12.7 H, Absolute Lymphocytes 0.9 L, Absolute Monocytes 0.4, Absolute Eosinophils 0, Absolute Basophils 0 02/14/18 0709: Anion Gap 8, Estimated GFR 43 L, BUN/Creatinine Ratio 16.7, Uric Acid 5.9 Vital Signs Date Time Temp Pulse Resp B/P B/P Pulse O2 O2 Flow FiO2 Mean Ox Delivery Rate 02/16 0836 76 140/70 02/16 0835 76 140/70 02/16 0835 76 140/70 02/16 0635 97.5 76 16 140/70 95 Room Air 02/16 0000 Nasal 2.0L Cannula 02/15 202 69 130/60 02/16 2000 97.1 69 16 130/60 93 Nasal Cannula 02/15 162 97.5 56 16 90/50 92 Nasal 2.0L Cannula 02/15 162 91 Nasal 2.0L Cannula
[2018-02-16 21:36] VITALS: BP 160/64
[2018-02-17 05:48] VITALS: BP 154/78
--- NOTE | 2018-02-17 07:07 | PN- Housestaff ---
Subjective Follow-up For: Cholecystectomy Subjective: Patient improved significantly today day 2 post op cholecystectomy. She has been weaned off oxygen and saturating well on room air. White count elevated yesterday and normal today. Patient afebrile with stable vital signs. Patient cleared for discharge as per attending and surgical team. Review of Systems Constitutional: Denies: see HPI. Objective Last 24 Hrs of Vital Signs/I&O Vital Signs Date Time Temp Pulse Resp B/P B/P Pulse O2 O2 Flow FiO2 Mean Ox Delivery Rate 02/17 0847 84 02/17 0847 84 150/80 02/17 0548 98.0 66 22 154/78 96 Room Air 02/16 2136 98.5 70 18 160/64 95 Room Air 02/16 2027 70 160/64 Intake & Output 02/17 1600 02/17 0800 02/17 0000 Intake Total 130 230 Output Total 250 Balance 130 -20 Intake, IV 10 10 Intake, Oral 120 220 Number Bowel Movements Output, Urine 250 Physical Exam General Appearance: Alert, Oriented X3, Cooperative HEENT: PERRLA, EOMI, Mucous Membr. moist/pink Cardiovascular: Regular Rate, Normal S1, Normal S2 Lungs: Clear to Auscultation, Normal Air Movement Abdomen: surgical soreness; lap renaldo stitches clean dry intacth Extremities: No Clubbing, No Cyanosis, No Edema, Normal Pulses Vascular: Normal Pulses, Pulses Symmetrical Current Medications: Current Medications Sig/Evan Start time Last Medication Dose Route Stop Time Status Admin Acetaminophen 650 MG Q6P PRN 02/08 2330 DCD 02/14 PO 1106 Allopurinol 100 MG DAILY 02/09 900 DCD 02/17 PO 0845 Amlodipine Besylate 10 MG DAILY 02/09 900 DCD 02/17 PO 0847 Aspirin Buffered 81 MG DAILY 02/17 900 DCD 02/17 PO 0844 Aspirin Buffered 81 MG DAILY 02/17 09 DCD PO Benzocaine/Menthol 1 OLYA Q2P PRN 02/16 08 DCD PO Clopidogrel Bisulfate 75 MG DAILY 02/17 900 DCD 02/17 PO 0845 Heparin Sodium 5,000 UNIT Q8 02/09 0600 DCD 02/17 (Porcine) SC 0516 Insulin Aspart 0 TIDAC/HS 02/17 08 DCD 02/17 SC 1226 Insulin Human Regular 0 Q6 02/15 2359 DC 02/17 SC 0020 Levothyroxine Sodium 0.075 MG DAILY 02/09 900 DCD 02/17 PO 0845 Losartan Potassium 50 MG DAILY 02/09 900 DCD 02/17 PO 0847 Magnesium Oxide 400 MG DAILY 02/09 1552 DCD 02/17 PO 0843 Metoprolol Tartrate 25 MG BID 02/09 900 DCD 02/17 PO 0847 Mirabegron 50 MG DAILY 02/09 900 DCD 02/17 PO 0844 Ondansetron HCl 4 MG Q6P PRN 02/08 2330 DCD IV Rosuvastatin Calcium 20 MG DAILY 02/09 900 DCD 02/17 PO 0845 Last 24 Hrs of Lab/Tayo Results Last 24 Hrs of Labs/Mics: Laboratory Tests 02/17/18 0702: Anion Gap 8, Estimated GFR 47 L, BUN/Creatinine Ratio 15.5, CBC w Diff NO MAN DIFF REQ, RBC 3.86 L, MCV 81.4, MCH 27.2, MCHC 33.4, RDW 17.1 H, MPV 7.9, Gran % 67.0, Lymphocytes % 18.4 L, Monocytes % 7.6, Eosinophils % 6.3 H, Basophils % 0.7, Absolute Granulocytes 6.5, Absolute Lymphocytes 1.8, Absolute Monocytes 0.7 H, Absolute Eosinophils 0.6, Absolute Basophils 0.1 Assessment/Plan Assessment: 82 y/o F with PMH of gout, hypothyroidism, uterine cancer s/p hysterectomy, HTN, HLD, DM, CAD s/p PCI and stents on ASA/Plavix presented with acute onset sudden abdominal pain. She will be off anticoagulant until Wednesday (02/15/18) for cholecyestectomy. 02/17: Patient day 2 status post cholecystectomy. Now on room air, afebrile vital signs stable. Clear for discharge as per PCP and surgical team. Abdominal Pain/Cholelithiasis * Patient day 2 status post cholecyestectomy * Advised to follow up with Gastroenterology and Surgery within 1-2 weeks of discharge History Of CAD s/p PCI: * Continue metoprolol and statin * Continuie aspirin and plavix on 02/17 Hypertension * Continue ARB, metoprolol, and Norvasc Diabetes * NovoLog low-dose sliding scale * Hold Janumet * Accu-Cheks 3 times daily before meals Hypothyroidism * Continue Synthroid 75 mcg Gout * Continue allopurinol at home dose Overactive bladder * Continue mirabegron DVT PPx: Heparin SC Code Status: FC Problem List: 1. Cholecystitis Pain Ratin Pain Location: surgical soreness Pain Goal: Pain 4 or less Pain Plan: as per pain pathway Tomorrow's Labs & Rationales: discharge
[2018-02-17 08:39] LABS: ABSOLUTE BASOPHIL COUNT 0.1 /CUMM (0.0-0.2); ABSOLUTE EOSINOPHIL COUNT 0.6 /CUMM (0.0-0.7); ABSOLUTE GRANULOCYTE CT 6.5 /CUMM (1.4-6.5); ABSOLUTE LYMPH COUNT 1.8 /CUMM (1.2-3.4); ABSOLUTE MONOCYTE COUNT 0.7 /CUMM (0.10-0.60); BASOPHIL % 0.7 % (0.0-2.0); EOSINOPHIL % 6.3 % (0-5); HEMATOCRIT 31.4 % (37-47); MEAN CORPUSCULAR HGB 27.2 PG (27.0-31.0); MEAN CORPUSCULAR HGB CONC 33.4 G/DL (33.0-37.0); MEAN CORPUSCULAR VOLUME 81.4 FL (81.0-99.0); MEAN PLATELET VOLUME 7.9 FL (7.4-10.4); PLATELET COUNT 463 /CUMM (130-400); RBC DISTRIBUTION WIDTH 17.1 % (11.5-14.5); RED BLOOD CELL CT 3.86 /CUMM (4.20-5.40); WHITE BLOOD CELL COUNT 9.6 /CUMM (4.8-10.8)
[2018-02-17 08:47] VITALS: BP 150/80
--- NOTE | 2018-02-17 10:49 | PN- Att Addend ---
Attending Addendum Attending Brief Note Patient is better today. She was weaned off her oxygen. Patient was kept yesterday because her white count was elevated. Today her white count is normal. Her vital signs are stable. She has no fever. No new changes on physical examination. I spoke to surgery and patient is okay to be discharged home and follow up with the surgeon and myself. See the CMR.. Intake & Output 02/17 1600 02/17 0400 02/16 0400 02/15 1600 02/15 0400 Intake Total 830 403 8636 610 700 300 Output Total 250 300 Balance 130 -20 1160 310 700 300 Intake, IV 10 10 300 310 300 Intake, Oral 120 220 860 300 400 300 Number 1 0 0 Bowel Movements Output, Urine 250 300 Current Medications Sig/Evan Start time Last Medication Dose Route Stop Time Status Admin Acetaminophen 650 MG Q6P PRN 02/08 2330 AC 02/14 PO 1106 Allopurinol 100 MG DAILY 02/09 900 AC 02/17 PO 0845 Amlodipine Besylate 10 MG DAILY 02/09 900 AC 02/17 PO 0847 Aspirin Buffered 81 MG DAILY 02/17 09 AC 02/17 PO 0844 Aspirin Buffered 81 MG DAILY 02/17 09 AC PO Benzocaine/Menthol 1 OLYA Q2P PRN 02/16 0845 AC PO Clopidogrel Bisulfate 75 MG DAILY 02/17 900 AC 02/17 PO 0845 Heparin Sodium 5,000 UNIT Q8 02/09 06 AC 02/17 (Porcine) SC 0516 Insulin Aspart 0 TIDAC/HS 02/17 08 AC SC Insulin Human Regular 0 Q6 02/15 2359 DC 02/17 SC 0020 Levothyroxine Sodium 0.075 MG DAILY 02/09 900 AC 02/17 PO 0845 Losartan Potassium 50 MG DAILY 02/09 900 AC 02/17 PO 0847 Magnesium Oxide 400 MG DAILY 02/09 1552 AC 02/17 PO 0843 Metoprolol Tartrate 25 MG BID 02/09 900 AC 02/17 PO 0847 Mirabegron 50 MG DAILY 02/09 900 AC 02/17 PO 0844 Ondansetron HCl 4 MG Q6P PRN 02/08 2330 AC IV Rosuvastatin Calcium 20 MG DAILY 02/09 900 AC 02/17 PO 0845 Laboratory Tests 02/17/18 0702: Anion Gap 8, Estimated GFR 47 L, BUN/Creatinine Ratio 15.5, CBC w Diff NO MAN DIFF REQ, RBC 3.86 L, MCV 81.4, MCH 27.2, MCHC 33.4, RDW 17.1 H, MPV 7.9, Gran % 67.0, Lymphocytes % 18.4 L, Monocytes % 7.6, Eosinophils % 6.3 H, Basophils % 0.7, Absolute Granulocytes 6.5, Absolute Lymphocytes 1.8, Absolute Monocytes 0.7 H, Absolute Eosinophils 0.6, Absolute Basophils 0.1 02/16/18 0715: Anion Gap 9, Estimated GFR 53 L, BUN/Creatinine Ratio 19.0, CBC w Diff NO MAN DIFF REQ, RBC 3.77 L, MCV 81.7, MCH 26.5 L, MCHC 32.5 L, RDW 16.8 H, MPV 8.4 , Gran % 90.4 H, Lymphocytes % 6.5 L, Monocytes % 2.9, Eosinophils % 0, Basophils % 0.2, Absolute Granulocytes 12.7 H, Absolute Lymphocytes 0.9 L, Absolute Monocytes 0.4, Absolute Eosinophils 0, Absolute Basophils 0 Vital Signs Date Time Temp Pulse Resp B/P B/P Pulse O2 O2 Flow FiO2 Mean Ox Delivery Rate 02/17 0847 84 02/17 0847 84 150/80 02/17 0548 98.0 66 22 154/78 96 Room Air 02/16 2136 98.5 70 18 160/64 95 Room Air 02/167 70 160/64 02/16 1415 97.9 64 16 140/64
== END 2018-02-17 13:56 | DRG 419 ==
LOC: ERH 17:13 → 2NB 22:22 → ERHI 22:22 → 1NO 22:22 → ENRESERV 22:52 → ENTRNSPT 23:08 → 1NO 23:09 → CMPTRNSPT 02-09 07:11 → 1NO 02-09 20:14 → ENTRNSPT 02-11 17:51 → EDTRNSPT 02-11 18:30 → 2NB 02-11 18:30 → EDTRNSPTSTS 02-11 18:30 → CMPTRNSPT 02-11 18:55 → 2NB 02-12 16:12 → ENTRNSPT 02-15 15:59 → EDTRNSPT 02-15 16:17 → EDTRNSPTSTS 02-15 16:17 → CMPTRNSPT 02-15 16:45 → ENPENDDIS 02-17 13:16 → ENTRNSPT 02-17 13:39 → EDTRNSPTSTS 02-17 13:50 → EDTRNSPT 02-17 13:50 → 2NB 02-17 13:56 → CMPTRNSPT 02-17 14:03
PROVIDERS: Hospitalist; Physical Medicine & Rehabilitation Pain Medicine; Physician Assistant Medical; Preventive Medicine Public Health & General Preventive Medicine
PROC: 0FT44ZZ Resection of Gallbladder, Percutaneous Endoscopic Approach (ICD-10-PCS; principal; 2018-02-15)
DX: K80.00 Calculus of gallbladder with acute cholecystitis without obstruction (principal); E11.9 Type 2 diabetes mellitus without complications; Z79.84 Long term (current) use of oral hypoglycemic drugs; E03.9 Hypothyroidism, unspecified; I25.10 Atherosclerotic heart disease of native coronary artery without angina pectoris; Z90.710 Acquired absence of both cervix and uterus; Z85.42 Personal history of malignant neoplasm of other parts of uterus; I10 Essential (primary) hypertension; E78.5 Hyperlipidemia, unspecified; Z98.61 Coronary angioplasty status; Z79.01 Long term (current) use of anticoagulants; Z79.82 Long term (current) use of aspirin; Z88.5 Allergy status to narcotic agent; Z88.0 Allergy status to penicillin; M10.9 Gout, unspecified
CPT/HCPCS: 1NSP; 2NBSP; 36415; 36592; 74177; 78226; 81001; 82436; 87040; 87086; 93005; 93010; 96374; A9537; J0131; J0696; J0744; J1630; J1644; J1815; J3490; J7042; J7060